=== PATIENT | male | born 1940 | race Caucasian/White ===

== ENCOUNTER → 2024-02-02 | Outpatient (CLI) | payer MEDICARE, SELFPAY | END | disposition home or self-care (01) | PROVIDERS: PCP Pathology Anatomic Pathology & Clinical Pathology; Visit Provider Podiatrist | DX: L97.522 Non-pressure chronic ulcer of other part of left foot with fat layer exposed (principal) | CPT/HCPCS: 87070; 87075; 87077; 87186; 87205 ==

== ENCOUNTER 2024-03-23 10:00 | Outpatient (RCR) | payer MEDICARE, SELFPAY ==
[2024-03-08 10:24] VITALS: BP 164/65; PULSE 81; RESP 18; TEMP 36.3; BMI 27.6
--- NOTE | 2024-03-08 11:03 | HP.PCM_ITS ---
History of Present Illness Date of Service: 03/08/24 Chief Complaint: Non-healing ulcerations b/l feet and legs History of Wound: Pt has an almost 12 month history of non-healing ulcerations b/l feet and legs, now with healed ulcers on the legs, ankles, and feet. He denies N/V/F/C/D/fatigue/malaise. There has been no drainage. Denies malodor or purulent drainage, or redness. He has a history of hairy cell leukemia that is in remission, has undergone chemotherapy in the past. Has a history of p soriasis. Denies N/V/F/C. He has no other known auto-immune disorders with the exception of psoriasis. [facility] Home Medications ?Medication ?Instructions ?Recorded ?Last Taken ?Type brimonidine 0.2 %-timolol 0.5 % 1 drp ophthalmic (eye) DAILY 04/03/15 Unknown History eye drops (Combigan) clopidogrel 75 mg tablet 75 mg PO DAILY 04/03/15 Unknown History furosemide 20 mg tablet 20 mg PO DAILY 04/03/15 Unknown History glyburide 2.5 mg tablet (Diabeta) 2.5 mg PO DAILY 04/03/15 Unknown History latanoprost 0.005 % eye drops 1 drp QHS 04/03/15 Unknown History magnesium oxide 400 mg (241.3 mg 400 mg PO TID 04/03/15 Unknown History magnesium) tablet metoprolol succinate 25 mg 25 mg PO DAILY 04/03/15 Unknown History tablet,extended release 24 hr oxycodone 5 mg tablet (Roxicodone) 5 mg PO Q8H PRN PRN Pain 04/03/15 Unknown History simvastatin 40 mg tablet 40 mg PO QHS 04/03/15 Unknown History sucralfate 1 gram tablet 1 g PO BID 04/03/15 Unknown History tamsulosin 0.4 mg capsule 0.4 mg PO BID 04/03/15 Unknown History gabapentin 100 mg capsule 300 mg PO TID 04/17/15 Unknown History lisinopril 20 mg tablet DAILY 05/08/15 Unknown History folic acid 1 mg tablet 1 mg PO DAILY@0800 07/10/15 Unknown History apremilast 30 mg tablet (Otezla) 30 mg PO DAILY 02/05/16 Unknown History ferrous sulfate 325 mg (65 mg 325 mg PO DAILY 03/08/24 Unknown History iron) tablet (FeroSul) glipizide 2.5 mg tablet, extended 2.5 mg PO BID 03/08/24 Unknown History release 24 hr sodium polystyrene sulfonate 15 ml PO 03/08/24 Unknown History gram-sorbitol 20 gram/60 mL oral susp (SPS (with sorbitol)) timolol maleate 0.5 % eye drops drp ophthalmic (eye) 03/08/24 Unknown History Allergy/AdvReac Type Severity Reaction Status Date / Time tramadol Allergy Mild Nausea Verified 03/08/24 10:35 latex Allergy Unknown Verified 03/08/24 10:35 penicillin Allergy Unknown Verified 03/08/24 10:35 Social History Smoking Status: Never smoker Vital Signs Vital Signs Vital Signs: 03/08/24 10:24 Temperature 97.3 F L Temperature Source Temporal Pulse Rate 81 Respiratory Rate 18 Blood Pressure 164/65 H Blood Pressure Mean 98 Blood Pressure Source Monitor Blood Pressure Position Semi-Fowlers Blood Pressure Location Left Arm Oxygen Delivery Method Room Air Weight Weight: 70.76 kg Body Mass Index (BMI) 27.6 Physical Exam Narrative Neurovascular status diminished bilateral lower extremity. Patient has reduced hammertoe left second digit full-thickness wound to dorsal left second digit down to second subcutaneous tissue. No acute signs of infection. Full-thickness wound right medial ankle. No deep probing acute signs of infection. Skin bilaterally is atrophic. Debridement Note Debridement Note Post-Debridement Measurements and Additional Note: Post-Debridement Measurements/Treatment - Nurse 1 - General Ulcer Assessment Start: 03/08/24 10:24 Freq: Status: Active Protocol: [email or web address].[email or web address] Activity Type Activity Date Activity User E-sign Co-sign Detail Recorded Client Recorded Date Recorded By Document 03/08/24 10:24 KW ; 03/08/24 10:33 KW 03/08/24 10:24 - Today's Visit Information Type of service Initial Visit Arrival Mode Ambulatory,Cane Accompanied by Patient Identification Verified (Name & Yes ) Finger Stick Blood Sugar(mg/dl) (if 195 indicated): Blood Sugar Stated by Patient Height and Weight Height 5 ft 3 in Weight 70.76 kg Weight in Pounds 156.0 lbs Body Mass Index (BMI) 27.6 BMI Classification Overweight BSA - Saran 1.74 Vital Signs Temperature (97.8 F-99.1 F) 97.3 F L Temperature Source Temporal Pulse Rate (60-100) 81 Pulse Location Monitor Respiratory Rate (12-18) 18 Respiratory rate source Observation Oxygen Delivery Method Room Air Blood Pressure (90/60-120/80) 164/65 H Blood Pressure Mean 98 Source Monitor Position Semi-Fowlers Blood Pressure Location Left Arm History Since Last Visit- (Skip if this is Patient's initial visit) Left Footwear Diabetic Shoe Right Footwear Diabetic Shoe Pain Scale: 0-10 Numeric Is Patient Pain Free? Yes WC - Nurse 1 - General Ulcer Measurement Start: 03/08/24 10:24 Freq: Status: Active Protocol: Activity Type Activity Date Activity User E-sign Co-sign Detail Recorded Client Recorded Date Recorded By Document 03/08/24 10:24 KW ; 03/08/24 10:33 KW 03/08/24 10:24 Wound Center Nurse 1 #9 RT MED ANKLE -Current Size (cm) - Length 0.6 -Current Size (cm) - Width 0.7 -Current Size (cm) - Depth 0.3 -Total Square Cm 0.42 -Date of Last Picture (Recall this 03/08/24 field) -Exudate Amt Small -Exudate Type Serosanguineous -Wound Margin Distinct, Outline Attached -Granulation Amt Small (1-33%) -Granulation Quality [place] -Necrosis Amt Large (67-100%) -Necrotic Tissue Type Adherent Slough -Texture (Jo-wound Skin Appearance) Assessed -Moisture (Jo-wound Skin Appearance) Assessed,Dry/ Scaly -Color (Jo-wound Skin Appearance) Assessed -Temperature (Jo-wound Skin No Abnormality Appearance) (Pt Warm) -Tenderness on Palpation (Jo-wound No Skin Appearance) -Ulcer Cleansing Rinsed/ Irrigated with Saline -Foul Odor after Cleansing No -Anesthetic Used 5% Lidocaine Gel #8 LT 2ND TOE -Current Size (cm) - Length 0.2 -Current Size (cm) - Width 0.8 -Current Size (cm) - Depth 0.2 -Total Square Cm 0.16 -Date of Last Picture (Recall this 03/08/24 field) -Exudate Amt Small -Exudate Type Serosanguineous -Wound Margin Distinct, Outline Attached -Granulation Amt Small (1-33%) -Granulation Quality [place] -Necrosis Amt Large (67-100%) -Necrotic Tissue Type Adherent Slough -Texture (Jo-wound Skin Appearance) Assessed -Moisture (Jo-wound Skin Appearance) Assessed,Dry/ Scaly -Color (Jo-wound Skin Appearance) Assessed -Temperature (Jo-wound Skin No Abnormality Appearance) (Pt Warm) -Tenderness on Palpation (Jo-wound No Skin Appearance) -Ulcer Cleansing Rinsed/ Irrigated with Saline -Anesthetic Used 5% Lidocaine Gel Right Calf (cm) 28.5 Right Ankle (cm) 20.5 Left Calf (cm) 28.8 Left Ankle (cm) 20.5 WC - Nurse 2 - General Ulcer CM Notes Start: 03/08/24 10:24 Freq: Status: Active Protocol: Activity Type Activity Date Activity User E-sign Co-sign Detail Recorded Client Recorded Date Recorded By Document 03/08/24 10:56 [facility] [email or web address] 03/08/24 11:01 [facility] 03/08/24 10:56 Wound Center Nurse 2 #9 RT MED ANKLE -Time 10:57 -Correct Patient Yes -Correct Side, Site, Position Yes -Correct Procedure Yes -Procedure Performed Yes -Type of Procedure Debridement -Clinical Debridement Subcutaneous -Tissue Removed Subcutaneous -Post Debridement (cm) - Length 0.5 -Post Debridement (cm) - Width 0.8 -Post Debridement (cm) - Depth 0.3 -Total Square (Post) (cm) 0.40 -Area of Debridement (cm) - Length 0.5 -Area of Debridement (cm) - Width 0.8 -Total Square (Area) (cm) 0.40 -Tunneling No -Undermining/Tunneling No -Circular Undermining No -Wound/Ulcer Outcome Not Healed -Ulcer Cleansing Rinsed/ Irrigated with Saline -Foul Odor after Cleansing No -Bioengineered Tissue No -Bleeding Controlled with Pressure -Treatment Response Procedure Tolerated Well -Debridement - Subq, 1st 20sq cm Yes #8 LT 2ND TOE -Time 10:58 -Correct Patient Yes -Correct Side, Site, Position Yes -Correct Procedure Yes -Procedure Performed Yes -Type of Procedure Debridement -Clinical Debridement Subcutaneous -Tissue Removed Subcutaneous -Post Debridement (cm) - Length 0.4 -Post Debridement (cm) - Width 1 -Post Debridement (cm) - Depth 0.3 -Total Square (Post) (cm) 0.4 -Area of Debridement (cm) - Length 0.4 -Area of Debridement (cm) - Width 1 -Total Square (Area) (cm) 0.4 -Tunneling No -Undermining/Tunneling No -Circular Undermining No -Wound/Ulcer Outcome Not Healed -Ulcer Cleansing Rinsed/ Irrigated with Saline -Foul Odor after Cleansing No -Bioengineered Tissue No -Bleeding Controlled with Pressure -Treatment Response Procedure Tolerated Well -Debridement - Subq, 1st 20sq cm No Pain Scale: 0-10 Numeric Is Patient Pain Free? Yes Assessment/Plan Assessment/Plan (1) Non-pressure chronic ulcer of other part of left foot with fat layer exposed: CODE(S): L97.522 - Non-pressure chronic ulcer of other part of left foot with fat layer exposed PLAN: Exam performed Patient had flexor tenotomy left second toe, digital deformities noted to be reduced. There is a wound that is healing well to the dorsal left second PIP J. No acute signs of infection. Patient has right medial ankle wound secondary to venous insufficiency. Bilateral wounds were excisionally debrided down to including level of subcutan eous tissue of all nonviable tissue using 3 mm dermal curette. Patient tolerated procedure well. Topical anesthesia used. Pre and postdebridement measurements documented nursing notes. Hemostasis obtained with light compression. Left second toe will be dressed with Betadine paint dry sterile dressing daily bilateral lower extremities to be dressed with Unna boot's and Adaptic to the right lower extremity wound. This will be dressed changed twice a week. Follow-up in 1 week (2) Non-pressure chronic ulcer of right ankle with fat layer exposed: CODE(S): L97.312 - Non-pressure chronic ulcer of right ankle with fat layer exposed (3) Other specified peripheral vascular diseases: CODE(S): I73.89 - Other specified peripheral vascular diseases
--- NOTE | 2024-03-09 09:18 | WC ---
PHOTO 03/08/24 LEFT 2ND TOE
--- NOTE | 2024-03-09 09:25 | WC ---
PHOTO 03/08/24 RT MEDIAL ANKLE
[2024-03-11 11:41] VITALS: BP 154/65; PULSE 82; RESP 18; TEMP 36.1; BMI 27.6
[2024-03-15 11:07] VITALS: BP 140/63; PULSE 74; RESP 18; TEMP 36.9; BMI 27.6
--- NOTE | 2024-03-15 11:37 | PCM.WC.PN ---
History of Present Illness Date of Service: 03/15/24 Chief Complaint: Non-healing ulcerations b/l feet and legs History of Wound: Pt has an almost 12 month history of non-healing ulcerations b/l feet and legs, now with healed ulcers on the legs, ankles, and feet. He denies N/V/F/C/D/fatigue/malaise. There has been no drainage. Denies malodor or purulent drainage, or redness. He has a history of hairy cell leukemia that is in remission, has undergone chemotherapy in the past. Has a history of psoriasis. Denies N/V/F/C. He has no other known auto-immune disorders with the exception of psoriasis. Objective Data Objective Data Vital Signs: Vital Signs Temp Pulse Resp BP O2 Del Method 98.4 F 74 18 140/63 H Room Air 03/15/24 11:07 03/15/24 11:07 03/15/24 11:07 03/15/24 11:07 03/08/24 10:24 Oxygen Delivery Method Room Air Weight: 70.76 kg Body Mass Index (BMI) 27.6 Physical Exam Narrative Neurovascular status diminished bilateral lower extremity. Patient has reduced hammertoe left second digit full-thickness wound to dorsal left second digit down to second subcutaneous tissue. No acute signs of infection. Full-thickness wound right medial ankle. No deep probing acute signs of infection. Skin bilaterally is atrophic. Debridement Note Debridement Note Post-Debridement Measurements and Additional Note: Post-Debridement Measurements/Treatment WC - Nurse 1 - General Ulcer Assessment Start: 03/08/24 10:24 Freq: Status: Active Protocol: PATY Activity Type Activity Date Activity User E-sign Co-sign Detail Recorded Client Recorded Date Recorded By Document 03/08/24 10:24 KW ; 03/08/24 10:33 KW Document 03/11/24 11:41 RB wound 03/11/24 11:44 RB Edit Result 03/11/24 11:41 RB (1) wound 03/11/24 11:45 RB Document 03/15/24 11:07 RB wound 03/15/24 11:24 RB (1) Blood Pressure (90/60-120/80) => 154/65 H Blood Pressure Mean (mm Hg) => 94 03/08/24 03/11/24 03/15/24 10:24 11:41 11:07 - Today's Visit Information Type of service Initial Visit Nurse-only Follow-up Visit 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 ) Arrival Mode Ambulatory,Cane Ambulatory Ambulatory,Cane Transfer Assistance None None Accompanied by Patient Identification Verified (Name & Yes Yes Yes ) Patient Requires Transmission-Based No No Precautions Finger Stick Blood Sugar(mg/dl) (if 195 indicated): Blood Sugar Stated by Patient Height and Weight Height 5 ft 3 in Weight 70.76 kg Weight in Pounds 156.0 lbs Body Mass Index (BMI) 27.6 27.6 27.6 BMI Classification Overweight Overweight Overweight BSA - Saran 1.74 Vital Signs Temperature (97.8 F-99.1 F) 97.3 F L 97 F L 98.4 F Temperature Source Temporal Temporal Temporal Pulse Rate (60-100) 81 82 74 Pulse Location Monitor Monitor Monitor Respiratory Rate (12-18) 18 18 18 Respiratory rate source Observation Observation Observation Oxygen Delivery Method Room Air Blood Pressure (90/60-120/80) 164/65 H 154/65 H 140/63 H Blood Pressure Mean (mm Hg) 98 94 88 Source Monitor Monitor Monitor Position Semi-Fowlers Semi-Fowlers Semi-Fowlers Blood Pressure Location Left Arm Left Arm Left Arm History Since Last Visit- (Skip if this is Patient's initial visit) Have you changed medications since your No last visit? Any new allergies or adverse reactions No Had a fall/change in ADL's that may No increase risk of falls Signs or symptoms of abuse and/or No neglect since last visit Have you been in the hospital since your No last visit? Has dressing in place as prescribed Yes Has compression in place as prescribed Yes Has offloadiing in place as prescribed No Experienced any changes in pain level or No management Left Footwear Diabetic Shoe Right Footwear Diabetic Shoe Pain Scale: 0-10 Numeric Is Patient Pain Free? Yes Yes Yes - Nurse 1 - General Ulcer Measurement Start: 03/08/24 10:24 Freq: Status: Active Protocol: Activity Type Activity Date Activity User E-sign Co-sign Detail Recorded Client Recorded Date Recorded By Document 03/08/24 10:24 KW ; 03/08/24 10:33 KW Document 03/11/24 11:41 RB wound 03/11/24 11:44 RB Document 03/15/24 11:07 RB wound 03/15/24 11:24 RB 03/08/24 03/11/24 03/15/24 10:24 11:41 11:07 Wound Center Nurse 1 #9 RT MED ANKLE -Combined with other wound No -Current Size (cm) - Length 0.6 0.4 -Current Size (cm) - Width 0.7 0.6 -Current Size (cm) - Depth 0.3 0.2 -Total Square Cm 0.42 0.24 -Date of Last Picture (Recall this 03/08/24 field) -Tunneling No -Undermining/Tunneling No -Circular Undermining No -Exudate Amt Small Medium -Exudate Type Serosanguineous Serosanguineous -Wound Margin Distinct, Thickened & Outline Rolled Under Attached -Granulation Amt Small (1-33%) Medium (34-66%) -Granulation Quality [place] -Slough/Fibrin Yes -Necrosis Amt Large (67-100%) Large (67-100%) -Necrotic Tissue Type Adherent Slough Adherent Slough -Structure Exposed N/A -Texture (Jo-wound Skin Appearance) Assessed Assessed -Moisture (Jo-wound Skin Appearance) Assessed,Dry/ Dry/Scaly Scaly -Color (Jo-wound Skin Appearance) Assessed Assessed -Temperature (Jo-wound Skin No Abnormality No Abnormality Appearance) (Pt Warm) (Pt Warm) -Tenderness on Palpation (Jo-wound No No Skin Appearance) -Ulcer Cleansing Rinsed/ Wound Cleanser Wound Cleanser Irrigated with Saline -Foul Odor after Cleansing No No -Anesthetic Used 5% Lidocaine 5% Lidocaine Gel Gel #8 LT 2ND TOE -Combined with other wound No -Current Size (cm) - Length 0.2 0.3 -Current Size (cm) - Width 0.8 0.5 -Current Size (cm) - Depth 0.2 0.1 -Total Square Cm 0.16 0.15 -Date of Last Picture (Recall this 03/08/24 field) -Photo Taken Yes -Tunneling No -Undermining/Tunneling No -Circular Undermining No -Exudate Amt Small Medium -Exudate Type Serosanguineous Serosanguineous -Wound Margin Distinct, Distinct, Outline Outline Attached Attached -Granulation Amt Small (1-33%) Small (1-33%) -Granulation Quality [place] -Slough/Fibrin Yes -Necrosis Amt Large (67-100%) Large (67-100%) -Necrotic Tissue Type Adherent Slough Adherent Slough -Structure Exposed N/A -Texture (Jo-wound Skin Appearance) Assessed Assessed -Moisture (Jo-wound Skin Appearance) Assessed,Dry/ Dry/Scaly Scaly -Color (Jo-wound Skin Appearance) Assessed Assessed -Temperature (Jo-wound Skin No Abnormality No Abnormality Appearance) (Pt Warm) (Pt Warm) -Tenderness on Palpation (Jo-wound No No Skin Appearance) -Ulcer Cleansing Rinsed/ Wound Cleanser Irrigated with Saline -Foul Odor after Cleansing No -Anesthetic Used 5% Lidocaine 5% Lidocaine Gel Gel Lower Limb Edema Present Yes Yes Right Calf (cm) 28.5 28.2 28.5 Right Ankle (cm) 20.5 20.5 20 Left Calf (cm) 28.8 28.2 27.2 Left Ankle (cm) 20.5 20.9 19.6 WC - Nurse 2 - General Ulcer CM Notes Start: 03/08/24 10:24 Freq: Status: Active Protocol: Activity Type Activity Date Activity User E-sign Co-sign Detail Recorded Client Recorded Date Recorded By Document 03/08/24 10:56 [facility] [id number] 03/08/24 11:01 [facility] 03/08/24 10:56 Wound Center Nurse 2 #9 RT MED ANKLE -Time 10:57 -Correct Patient Yes -Correct Side, Site, Position Yes -Correct Procedure Yes -Procedure Performed Yes -Type of Procedure Debridement -Clinical Debridement Subcutaneous -Tissue Removed Subcutaneous -Post Debridement (cm) - Length 0.5 -Post Debridement (cm) - Width 0.8 -Post Debridement (cm) - Depth 0.3 -Total Square (Post) (cm) 0.40 -Area of Debridement (cm) - Length 0.5 -Area of Debridement (cm) - Width 0.8 -Total Square (Area) (cm) 0.40 -Tunneling No -Undermining/Tunneling No -Circular Undermining No -Wound/Ulcer Outcome Not Healed -Ulcer Cleansing Rinsed/ Irrigated with Saline -Foul Odor after Cleansing No -Bioengineered Tissue No -Bleeding Controlled with Pressure -Treatment Response Procedure Tolerated Well -Debridement - Subq, 1st 20sq cm Yes #8 LT 2ND TOE -Time 10:58 -Correct Patient Yes -Correct Side, Site, Position Yes -Correct Procedure Yes -Procedure Performed Yes -Type of Procedure Debridement -Clinical Debridement Subcutaneous -Tissue Removed Subcutaneous -Post Debridement (cm) - Length 0.4 -Post Debridement (cm) - Width 1 -Post Debridement (cm) - Depth 0.3 -Total Square (Post) (cm) 0.4 -Area of Debridement (cm) - Length 0.4 -Area of Debridement (cm) - Width 1 -Total Square (Area) (cm) 0.4 -Tunneling No -Undermining/Tunneling No -Circular Undermining No -Wound/Ulcer Outcome Not Healed -Ulcer Cleansing Rinsed/ Irrigated with Saline -Foul Odor after Cleansing No -Bioengineered Tissue No -Bleeding Controlled with Pressure -Treatment Response Procedure Tolerated Well -Debridement - Subq, 1st 20sq cm No Pain Scale: 0-10 Numeric Is Patient Pain Free? Yes WC - Nurse 3 - General Ulcer D/C NN Start: 03/08/24 10:24 Freq: Status: Active Protocol: Activity Type Activity Date Activity User E-sign Co-sign Detail Recorded Client Recorded Date Recorded By Document 03/08/24 11:07 DL [email or web address] 03/08/24 11:09 DL Document 03/11/24 11:41 RB wound 03/11/24 11:44 RB Edit Result 03/11/24 11:41 RB (1) wound 03/11/24 11:45 RB (1) Blood Pressure (90/60-120/80) => 154/65 H Blood Pressure Mean (mm Hg) => 94 03/08/24 03/11/24 11:07 11:41 Wound Care Center Nurse 3 #9 RT MED ANKLE -Ulcer Cleansing Rinsed/ Irrigated with Saline -Foul Odor after Cleansing No -Primary Dressing Applied NonAdherent NonAdherent Contact Layer Contact Layer #8 LT 2ND TOE -Ulcer Cleansing Rinsed/ betadine Irrigated with Saline -Other Dressing betadine -Primary Dressing Covered/Secured with Dry Gauze, Secured with Tape -Wound Comment(s) dressing applied per R Kristopher das osmany -Multi-Layered Wrap Application Unna Boot - Unna Boot - Bilateral ($) Bilateral ($) Treatment Response Procedure Procedure Tolerated Well Tolerated Well Vital Signs Temperature (97.8 F-99.1 F) 97 F L Temperature Source Temporal Pulse Rate (60-100) 82 Pulse Location Monitor Respiratory Rate (12-18) 18 Respiratory rate source Observation Blood Pressure (90/60-120/80) 154/65 H Blood Pressure Mean (mm Hg) 94 Source Monitor Position Semi-Fowlers Blood Pressure Location Left Arm Pain Scale: 0-10 Numeric Is Patient Pain Free? Yes Yes WC - Visit Discharge Discharge Condition Stable Stable Ambulatory Status Cane Ambulatory,Cane Transportation Private Auto Private Auto Medication Reconcilliation completed & No provided to patient/care provider Clinical Summary of Care Provided Yes Assessment/Plan Assessment/Plan (1) Non-pressure chronic ulcer of other part of left foot with fat layer exposed: CODE(S): L97.522 - Non-pressure chronic ulcer of other part of left foot with fat layer exposed PLAN: Exam performed Patient had flexor tenotomy left second toe, digital deformities noted to be reduced. There is a wound that is healing well to the dorsal left second PIPJ. No acute signs of infection. Patient has right medial ankle wound secondary to venous insufficiency. Bilateral wounds were excisionally debrided down to including level of subcutaneous tissue of all nonviable tissue using 3 mm dermal curette. Patient tolerated procedure well. Topical anesthesia used. Pre and postdebridement measurements documented nursing notes. Hemostasis obtained with light compression. Left second toe will be dressed with Betadine paint dry sterile dressing daily bilateral lower extremities to be dressed with Unna boot's and Adaptic to the right lower extremity wound. This will be dressed changed twice a week. Follow-up in 1 week (2) Non-pressure chronic ulcer of right ankle with fat layer exposed: CODE(S): L97.312 - Non-pressure chronic ulcer of right ankle with fat layer exposed (3) Other specified peripheral vascular diseases: CODE(S): I73.89 - Other specified peripheral vascular diseases
[2024-03-18 13:38] VITALS: BP 138/45; PULSE 71; RESP 16; TEMP 36.2; BMI 27.6
[2024-03-22 10:29] VITALS: BP 160/63; PULSE 69; RESP 18; TEMP 35.7; BMI 27.6
--- NOTE | 2024-03-22 11:06 | PCM.WC.PN ---
History of Present Illness Date of Service: 03/22/24 Chief Complaint: Non-healing ulcerations b/l feet and legs History of Wound: Pt has an almost 12 month history of non-healing ulcerations b/l feet and legs, now with healed ulcers on the legs, ankles, and feet. He denies N/V/F/C/D/fatigue/malaise. There has been no drainage. Denies malodor or purulent drainage, or redness. He has a history of hairy cell leukemia that is in remission, has undergone chemotherapy in the past. Has a history of psoriasis. Denies N/V/F/C. He has no other known auto-immune disorders with the exception of psoriasis. Objective Data Objective Data Vital Signs: Vital Signs Temp Pulse Resp BP O2 Del Method 96.3 F L 69 18 160/63 H Room Air 03/22/24 10:29 03/22/24 10:29 03/22/24 10:29 03/22/24 10:29 03/18/24 13:38 Oxygen Delivery Method Room Air Weight: 70.76 kg Body Mass Index (BMI) 27.6 Physical Exam Narrative Neurovascular status diminished bilateral lower extremity. Patient has reduced hammertoe left second digit full-thickness wound to dorsal left second digit down to second subcutaneous tissue. No acute signs of infection. Full-thickness wound right medial ankle. No deep probing acute signs of infection. Skin bilaterally is atrophic. Debridement Note Debridement Note Post-Debridement Measurements and Additional Note: Post-Debridement Measurements/Treatment WC - Nurse 1 - General Ulcer Assessment Start: 03/08/24 10:24 Freq: Status: Active Protocol: PATY Activity Type Activity Date Activity User E-sign Co-sign Detail Recorded Client Recorded Date Recorded By Document 03/08/24 10:24 KW ; 03/08/24 10:33 KW Document 03/11/24 11:41 RB wound 03/11/24 11:44 RB Edit Result 03/11/24 11:41 RB (1) wound 03/11/24 11:45 RB Document 03/15/24 11:07 RB wound 03/15/24 11:24 RB Document 03/18/24 13:38 BMF [id number] 03/18/24 13:42 BMF Document 03/22/24 10:29 RB wound 03/22/24 10:52 RB (1) Blood Pressure (90/60-120/80) => 154/65 H Blood Pressure Mean (mm Hg) => 94 03/08/24 03/11/24 03/15/24 10:24 11:41 11:07 WC - Today's Visit Information Type of service Initial Visit Nurse-only Follow-up Visit Visit (Physician/BARREL LAPPER ) Arrival Mode Ambulatory,Cane Ambulatory Ambulatory,Cane Transfer Assistance None None Accompanied by Patient Identification Verified (Name & Yes Yes Yes ) Patient Requires Transmission-Based No No Precautions Finger Stick Blood Sugar(mg/dl) (if 195 indicated): Blood Sugar Stated by Patient Height and Weight Height 5 ft 3 in Weight 70.76 kg Weight in Pounds 156.0 lbs Body Mass Index (BMI) 27.6 27.6 27.6 BMI Classification Overweight Overweight Overweight BSA - [place] 1.74 Vital Signs Temperature (97.8 F-99.1 F) 97.3 F L 97 F L 98.4 F Temperature Source Temporal Temporal Temporal Pulse Rate (60-100) 81 82 74 Pulse Location Monitor Monitor Monitor Respiratory Rate (12-18) 18 18 18 Respiratory rate source Observation Observation Observation Oxygen Delivery Method Room Air Blood Pressure (90/60-120/80) 164/65 H 154/65 H 140/63 H Blood Pressure Mean (mm Hg) 98 94 88 Source Monitor Monitor Monitor Position Semi-Fowlers Semi-Fowlers Semi-Fowlers Blood Pressure Location Left Arm Left Arm Left Arm History Since Last Visit- (Skip if this is Patient's initial visit) Have you changed medications since your No last visit? Any new allergies or adverse reactions No Had a fall/change in ADL's that may No increase risk of falls Signs or symptoms of abuse and/or No neglect since last visit Have you been in the hospital since your No last visit? Has dressing in place as prescribed Yes Has compression in place as prescribed Yes Has offloadiing in place as prescribed No Experienced any changes in pain level or No management Left Footwear Diabetic Shoe Right Footwear Diabetic Shoe Pain Scale: 0-10 Numeric Is Patient Pain Free? Yes Yes Yes [email or web address] TAFOYA -Description -Intensity -Duration (hours) -Pain Behavior -Pain Aggravating Factors -Alleviating Factors/Interventions -Effectiveness of Alleviating Factor/ Intervention 03/18/24 03/22/24 13:38 10:29 WC - Today's Visit Information Type of service Nurse-only Follow-up Visit Visit (Physician/BARREL LAPPER ) Arrival Mode Ambulatory, Ambulatory, Walker Walker Transfer Assistance None Accompanied by Patient Identification Verified (Name & Yes Yes ) Patient Requires Transmission-Based No No Precautions Finger Stick Blood Sugar(mg/dl) (if indicated): Blood Sugar Height and Weight Height Weight Weight in Pounds Body Mass Index (BMI) 27.6 27.6 BMI Classification Overweight Overweight [facility] - [place] Vital Signs Temperature (97.8 F-99.1 F) 97.1 F L 96.3 F L Temperature Source Temporal Temporal Pulse Rate (60-100) 71 69 Pulse Location Monitor Monitor Respiratory Rate (12-18) 16 18 Respiratory rate source Observation Ausculation Oxygen Delivery Method Room Air Blood Pressure (90/60-120/80) 138/45 H 160/63 H Blood Pressure Mean (mm Hg) 76 95 Source Monitor Monitor Position Sitting Semi-Fowlers Blood Pressure Location Left Arm Left Arm History Since Last Visit- (Skip if this is Patient's initial visit) Have you changed medications since your No last visit? Any new allergies or adverse reactions No Had a fall/change in ADL's that may No increase risk of falls Signs or symptoms of abuse and/or No neglect since last visit Have you been in the hospital since your No last visit? Has dressing in place as prescribed Yes Has compression in place as prescribed Yes Has offloadiing in place as prescribed No Experienced any changes in pain level or No management Left Footwear Diabetic Shoe Right Footwear Diabetic Shoe Pain Scale: 0-10 Numeric Is Patient Pain Free? Yes No bilat LE -Description Aching -Intensity 4 -Duration (hours) Acute -Pain Behavior Withdrawal from Touch -Pain Aggravating Factors Exercise/ Activity, Debridement -Alleviating Factors/Interventions Medication -Effectiveness of Alleviating Factor/ Moderately Intervention effective WC - Nurse 1 - General Ulcer Measurement Start: 03/08/24 10:24 Freq: Status: Active Protocol: Activity Type Activity Date Activity User E-sign Co-sign Detail Recorded Client Recorded Date Recorded By Document 03/08/24 10:24 KW ; 03/08/24 10:33 KW Document 03/11/24 11:41 RB wound 03/11/24 11:44 RB Document 03/15/24 11:07 RB wound 03/15/24 11:24 RB Document 03/22/24 10:29 RB wound 03/22/24 10:52 RB 03/08/24 03/11/24 03/15/24 10:24 11:41 11:07 Wound Center Nurse 1 #9 RT MED ANKLE -Combined with other wound No -Current Size (cm) - Length 0.6 0.4 -Current Size (cm) - Width 0.7 0.6 -Current Size (cm) - Depth 0.3 0.2 -Total Square Cm 0.42 0.24 -Date of Last Picture (Recall this 03/08/24 field) -Photo Taken -Tunneling No -Undermining/Tunneling No -Circular Undermining No -Exudate Amt Small Medium -Exudate Type Serosanguineous Serosanguineous -Wound Margin Distinct, Thickened & Outline Rolled Under Attached -Granulation Amt Small (1-33%) Medium (34-66%) -Granulation Quality Sargeant Sargeant -Slough/Fibrin Yes -Necrosis Amt Large (67-100%) Large (67-100%) -Necrotic Tissue Type Adherent Slough Adherent Slough -Structure Exposed N/A -Texture (Jo-wound Skin Appearance) Assessed Assessed -Moisture (Jo-wound Skin Appearance) Assessed,Dry/ Dry/Scaly Scaly -Color (Jo-wound Skin Appearance) Assessed Assessed -Temperature (Jo-wound Skin No Abnormality No Abnormality Appearance) (Pt Warm) (Pt Warm) -Tenderness on Palpation (Jo-wound No No Skin Appearance) -Ulcer Cleansing Rinsed/ Wound Cleanser Wound Cleanser Irrigated with Saline -Foul Odor after Cleansing No No -Anesthetic Used 5% Lidocaine 5% Lidocaine Gel Gel #8 LT 2ND TOE -Combined with other wound No -Current Size (cm) - Length 0.2 0.3 -Current Size (cm) - Width 0.8 0.5 -Current Size (cm) - Depth 0.2 0.1 -Total Square Cm 0.16 0.15 -Date of Last Picture (Recall this 03/08/24 field) -Photo Taken Yes -Tunneling No -Undermining/Tunneling No -Circular Undermining No -Exudate Amt Small Medium -Exudate Type Serosanguineous Serosanguineous -Wound Margin Distinct, Distinct, Outline Outline Attached Attached -Granulation Amt Small (1-33%) Small (1-33%) -Granulation Quality Sargeant Sargeant -Slough/Fibrin Yes -Necrosis Amt Large (67-100%) Large (67-100%) -Necrotic Tissue Type Adherent Slough Adherent Slough -Structure Exposed N/A -Texture (Jo-wound Skin Appearance) Assessed Assessed -Moisture (Jo-wound Skin Appearance) Assessed,Dry/ Dry/Scaly Scaly -Color (Jo-wound Skin Appearance) Assessed Assessed -Temperature (Jo-wound Skin No Abnormality No Abnormality Appearance) (Pt Warm) (Pt Warm) -Tenderness on Palpation (Jo-wound No No Skin Appearance) -Ulcer Cleansing Rinsed/ Wound Cleanser Irrigated with Saline -Foul Odor after Cleansing No -Anesthetic Used 5% Lidocaine 5% Lidocaine Gel Gel Lower Limb Edema Present Yes Yes Right Calf (cm) 28.5 28.2 28.5 Right Ankle (cm) 20.5 20.5 20 Left Calf (cm) 28.8 28.2 27.2 Left Ankle (cm) 20.5 20.9 19.6 03/22/24 10:29 Wound Center Nurse 1 #9 RT MED ANKLE -Combined with other wound No -Current Size (cm) - Length 0.5 -Current Size (cm) - Width 0.7 -Current Size (cm) - Depth 0.2 -Total Square Cm 0.35 -Date of Last Picture (Recall this field) -Photo Taken Yes -Tunneling No -Undermining/Tunneling No -Circular Undermining No -Exudate Amt Medium -Exudate Type Serosanguineous -Wound Margin Thickened & Rolled Under -Granulation Amt Medium (34-66%) -Granulation Quality Sargeant -Slough/Fibrin Yes -Necrosis Amt Medium (34-66%) -Necrotic Tissue Type Adherent Slough -Structure Exposed N/A -Texture (Jo-wound Skin Appearance) Assessed -Moisture (Jo-wound Skin Appearance) Assessed -Color (Jo-wound Skin Appearance) Assessed -Temperature (Jo-wound Skin No Abnormality Appearance) (Pt Warm) -Tenderness on Palpation (Jo-wound No Skin Appearance) -Ulcer Cleansing Wound Cleanser -Foul Odor after Cleansing No -Anesthetic Used 5% Lidocaine Gel #8 LT 2ND TOE -Combined with other wound -Current Size (cm) - Length 0.3 -Current Size (cm) - Width 0.5 -Current Size (cm) - Depth 0.1 -Total Square Cm 0.15 -Date of Last Picture (Recall this field) -Photo Taken Yes -Tunneling No -Undermining/Tunneling No -Circular Undermining No -Exudate Amt Medium -Exudate Type Serosanguineous -Wound Margin Thickened & Rolled Under -Granulation Amt Medium (34-66%) -Granulation Quality Sargeant -Slough/Fibrin Yes -Necrosis Amt Medium (34-66%) -Necrotic Tissue Type Adherent Slough -Structure Exposed N/A -Texture (Jo-wound Skin Appearance) Assessed -Moisture (Jo-wound Skin Appearance) Assessed -Color (Jo-wound Skin Appearance) Assessed -Temperature (Jo-wound Skin No Abnormality Appearance) (Pt Warm) -Tenderness on Palpation (Jo-wound No Skin Appearance) -Ulcer Cleansing Wound Cleanser -Foul Odor after Cleansing No -Anesthetic Used 5% Lidocaine Gel Lower Limb Edema Present Yes Right Calf (cm) 28.5 Right Ankle (cm) 20 Left Calf (cm) 27.5 Left Ankle (cm) 20.5 WC - Nurse 2 - General Ulcer CM Notes Start: 03/08/24 10:24 Freq: Status: Active Protocol: Activity Type Activity Date Activity User E-sign Co-sign Detail Recorded Client Recorded Date Recorded By Document 03/08/24 10:56 [facility] [id number] 03/08/24 11:01 [facility] Document 03/15/24 11:34 0000 03/15/24 11:40 Document 03/22/24 10:58 0000 03/22/24 10:59 03/08/24 03/15/24 03/22/24 10:56 11:34 10:58 Wound Center Nurse 2 #9 RT MED ANKLE -Time 10:57 11:34 10:58 -Correct Patient Yes Yes Yes -Correct Side, Site, Position Yes Yes Yes -Correct Procedure Yes Yes Yes -Procedure Performed Yes Yes Yes -Type of Procedure Debridement Debridement Debridement -Clinical Debridement Subcutaneous Subcutaneous Subcutaneous -Tissue Removed Subcutaneous Subcutaneous Subcutaneous -Post Debridement (cm) - Length 0.5 0.6 0.5 -Post Debridement (cm) - Width 0.8 1.0 0.9 -Post Debridement (cm) - Depth 0.3 0.2 0.2 -Total Square (Post) (cm) 0.40 0.60 0.45 -Area of Debridement (cm) - Length 0.5 0.6 0.5 -Area of Debridement (cm) - Width 0.8 1.0 0.9 -Total Square (Area) (cm) 0.40 0.60 0.45 -Tunneling No No No -Undermining/Tunneling No No -Circular Undermining No No No -Wound/Ulcer Outcome Not Healed Not Healed Not Healed -Ulcer Cleansing Rinsed/ Rinsed/ Rinsed/ Irrigated with Irrigated with Irrigated with Saline Saline Saline -Foul Odor after Cleansing No No No -Bioengineered Tissue No No No -Bleeding Controlled with Pressure Pressure Pressure -Treatment Response Procedure Procedure Procedure Tolerated Well Tolerated Well Tolerated Well -Offloading No No -Debridement - Subq, 1st 20sq cm Yes No No #8 LT 2ND TOE -Time 10:58 11:34 10:59 -Correct Patient Yes Yes Yes -Correct Side, Site, Position Yes Yes Yes -Correct Procedure Yes Yes Yes -Procedure Performed Yes Yes Yes -Type of Procedure Debridement Debridement Debridement -Clinical Debridement Subcutaneous Subcutaneous Subcutaneous -Tissue Removed Subcutaneous Subcutaneous Subcutaneous -Post Debridement (cm) - Length 0.4 0.3 0.3 -Post Debridement (cm) - Width 1 1.0 0.8 -Post Debridement (cm) - Depth 0.3 0.2 0.1 -Total Square (Post) (cm) 0.4 0.30 0.24 -Area of Debridement (cm) - Length 0.4 0.3 0.3 -Area of Debridement (cm) - Width 1 1.0 0.8 -Total Square (Area) (cm) 0.4 0.30 0.24 -Tunneling No No No -Undermining/Tunneling No No No -Circular Undermining No No No -Wound/Ulcer Outcome Not Healed Not Healed Not Healed -Ulcer Cleansing Rinsed/ Rinsed/ Rinsed/ Irrigated with Irrigated with Irrigated with Saline Saline Saline -Foul Odor after Cleansing No No No -Bioengineered Tissue No No No -Bleeding Controlled with Pressure Pressure Pressure -Treatment Response Procedure Procedure Procedure Tolerated Well Tolerated Well Tolerated Well -Offloading No No -Debridement - Subq, 1st 20sq cm No Yes Yes Pain Scale: 0-10 Numeric Is Patient Pain Free? Yes Yes Yes - Nurse 3 - General Ulcer D/C NN Start: 03/08/24 10:24 Freq: Status: Active Protocol: Activity Type Activity Date Activity User E-sign Co-sign Detail Recorded Client Recorded Date Recorded By Document 03/08/24 11:07 DL .10.25.7 03/08/24 11:09 DL Document 03/11/24 11:41 RB wound 03/11/24 11:44 RB Edit Result 03/11/24 11:41 RB (1) wound 03/11/24 11:45 RB Document 03/15/24 12:07 DS 1 03/15/24 12:08 DS Document 03/18/24 13:38 BMF .10.25.7 03/18/24 13:42 BMF (1) Blood Pressure (90/60-120/80) => 154/65 H Blood Pressure Mean (mm Hg) => 94 03/08/24 03/11/24 03/15/24 11:07 11:41 12:07 Wound Care Center Nurse 3 #9 RT MED ANKLE -Ulcer Cleansing Rinsed/ Rinsed/ Irrigated with Irrigated with Saline Saline -Foul Odor after Cleansing No -Primary Dressing Applied NonAdherent NonAdherent Contact Layer Contact Layer -Other Dressing betadine, adaptic #8 LT 2ND TOE -Ulcer Cleansing Rinsed/ betadine Rinsed/ Irrigated with Irrigated with Saline Saline -Foul Odor after Cleansing -Other Dressing betadine betadine, adatic -Primary Dressing Covered/Secured with Dry Gauze, Secured with Tape -Wound Comment(s) dressing applied per R Kristopher das osmany -Multi-Layered Wrap Application Unna Boot - Unna Boot - Unna Boot - Bilateral ($) Bilateral ($) Bilateral ($) Treatment Response Procedure Procedure Tolerated Well Tolerated Well Vital Signs Temperature (97.8 F-99.1 F) 97 F L Temperature Source Temporal Pulse Rate (60-100) 82 Pulse Location Monitor Respiratory Rate (12-18) 18 Respiratory rate source Observation Oxygen Delivery Method Blood Pressure (90/60-120/80) 154/65 H Blood Pressure Mean (mm Hg) 94 Source Monitor Position Semi-Fowlers Blood Pressure Location Left Arm Pain Scale: 0-10 Numeric Is Patient Pain Free? Yes Yes Yes WC - Visit Discharge Discharge Condition Stable Stable Stable Ambulatory Status Cane Ambulatory,Cane Ambulatory, Walker Transportation Private Auto Private Auto Private Auto Accompanied by Medication Reconcilliation completed & No Yes provided to patient/care provider Clinical Summary of Care Provided Yes Yes 03/18/24 13:38 Wound Care Center Nurse 3 #9 RT MED ANKLE -Ulcer Cleansing Soap and Water -Foul Odor after Cleansing No -Primary Dressing Applied NonAdherent Contact Layer -Other Dressing UNNA BOOT #8 LT 2ND TOE -Ulcer Cleansing Soap and Water -Foul Odor after Cleansing No -Other Dressing BETADINE -Primary Dressing Covered/Secured with Dry Gauze, Secured with Tape -Wound Comment(s) osmany -Multi-Layered Wrap Application Unna Boot - Bilateral ($) Treatment Response Procedure Tolerated Well Vital Signs Temperature (97.8 F-99.1 F) 97.1 F L Temperature Source Temporal Pulse Rate (60-100) 71 Pulse Location Monitor Respiratory Rate (12-18) 16 Respiratory rate source Observation Oxygen Delivery Method Room Air Blood Pressure (90/60-120/80) 138/45 H Blood Pressure Mean (mm Hg) 76 Source Monitor Position Sitting Blood Pressure Location Left Arm Pain Scale: 0-10 Numeric Is Patient Pain Free? Yes WC - Visit Discharge Discharge Condition Stable Ambulatory Status Ambulatory, Walker Transportation Private Auto Accompanied by Medication Reconcilliation completed & provided to patient/care provider Clinical Summary of Care Provided Assessment/Plan Assessment/Plan (1) Non-pressure chronic ulcer of other part of left foot with fat layer exposed: CODE(S): L97.522 - Non-pressure chronic ulcer of other part of left foot with fat layer exposed PLAN: Exam performed Patient had flexor tenotomy left second toe, digital deformities noted to be reduced. There is a wound that is healing well to the dorsal left second PIPJ. No acute signs of infection. Patient has right medial ankle wound secondary to venous insufficiency. Bilateral wounds were excisionally debrided down to including level of subcutaneous tissue of all nonviable tissue using 3 mm dermal curette. Patient tolerated procedure well. Topical anesthesia used. Pre and postdebridement measurements documented nursing notes. Hemostasis obtained with light compression. Left second toe will be dressed with Betadine paint dry sterile dressing daily bilateral lower extremities to be dressed with Unna boot's and Adaptic to the right lower extremity wound. This will be dressed changed twice a week. Follow-up in 1 week (2) Non-pressure chronic ulcer of right ankle with fat layer exposed: CODE(S): L97.312 - Non-pressure chronic ulcer of right ankle with fat layer exposed (3) Other specified peripheral vascular diseases: CODE(S): I73.89 - Other specified peripheral vascular diseases
--- NOTE | 2024-03-23 10:17 | VDLE_ITS ---
Reason For Study: Foot ulcer RIGHT LEFT CFV is compressible, spontaneous, phasic, CFV is compressible, spontaneous, phasic, competent and demonstrates normal competent, and demonstrates normal augmentation. augmentation. FV is compressible, spontaneous, phasic, FV is compressible, phasic, and INCOMPETENT competent and demonstrates normal for greater than 1.0 second. augmentation. POP V is compressible, spontaneous, phasic, POP V is compressible, spontaneous, phasic, competent and demonstrates normal competent and demonstrates normal augmentation. augmentation. T/P Trunk is compressible. T/P Trunk is compressible. PTV is compressible. PTV is compressible. LT PerV is compressible. RT PerV is compressible. SFJ is competent and measures 0.54 cm. SFJ is competent and measures 0.54 cm. GSV proximal thigh measures 0.38 x 0.40 cm. GSV proximal thigh measures 0.28 x 0.28 cm. GSV at knee measures 0.49 x 0.51 cm. GSV at knee measures 0.16 x 0.17 cm. GSV is competent throughout. GSV is competent throughout. ASV proximal calf is INCOMPETENT for greater SSV proximal calf is competent and measures than 0.5 seconds and measures 0.24 x 0.35 cm. 0.30 x 0.31 cm. SSV proximal calf is competent and measures Procedure 0.14 x 0.17 cm. This is a venous duplex using B-mode, color flow and spectral Doppler. Exam performed in department. Patient was scanned in reverse Trendelenburg position during reflux assessment. A preliminary report was called and/or faxed to [facility]. VL/Venous Duplex US - John Extrem Interpretation Summary Deep veins of the lower extremities are bilaterally patent and compressible seg mentally. There is no evidence of deep vein thrombosis on either side. Valvular competence appears in tact within the deep venous system on the right . On the left, the femoral vein is incompetent. The great saphenous veins appear bilaterally patent and compressible segmentally. Sapheno-femoral junctio ns are bilaterally competent . Valvular competence appears to be intact segmentally within the gre at saphenous veins bilaterally. Small saphenous veins are patent and competent bilaterally. The ac cessory saphenous vein in the left proximal calf is incompetent. Ordering Physician: Sean Christopher Referring Physician: Wale Vasquez Performed By: Reanna Howell RVT
--- NOTE | 2024-03-23 10:17 | ART_ITS ---
Reason For Study: Foot wound Procedure A bilateral lower extremity continuous wave Doppler with analog waveform analysis,segmental pressures,and ankle brachial indexes without exercise. Left Segmental Pressures Left brachial= 158mmHg. Left thigh = 208mmHg. Left calf = 99mmHg. Left dorsalis pedis artery = 90mmHg. Left digit = 42 mmHg. The left dorsalis pedis waveforms are monophasic. The left posterior tibial artery waveforms are absent. Right Segmental Pressures Right brachial= 159mmHg. Right thigh = 148mmHg. Right calf = 95mmHg. Right posterior tibial artery = 88mmHg. Right dorsalis pedis artery = 90mmHg. Right digit = 46 mmHg. The right dorsalis pedis waveforms are monophasic. The right posterior tibial artery waveforms are monophasic. Indices The right ankle brachial index by the dorsalis pedis is 0.57. The right ankle brachial index by the posterior tibial artery is 0.55. The right digital-brachial index is 0.29. The left ankle brachial index by the dorsalis pedis is 0.57. The left digital-brachial index is 0.26. VL/Lower Ext Art Exam w/o Exercis Interpretation Summary Monophasic Doppler waveforms are noted at ankle level bilaterally. Pulse-volume recordings appear diminished at calf, ankle, and digital levels bilaterally. Resting ankle-brachi al indices are moderately diminished bilaterally. Digital-brachial indices are moderately to s everely diminished bilaterally. 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 There is evidence of [id number] arterial occlusive disease at digital level bila terally. The occlusive disease appears to be multi-segmental bilaterally. The left posterior tibial artery pulse is absent. Ordering Physician: Sean Christopher Referring Physician: Wale Vasquez Performed By: Reanna Howell RVT
--- NOTE | 2024-03-23 11:52 | WC ---
PHOTO 03/22/24 LEFT 2ND TOE
--- NOTE | 2024-03-23 11:53 | WC ---
PHOTO 03/22/2024 RIGHT MEDIAL ANKLE
== END 2024-03-23 23:59 | disposition home or self-care (01) ==
LOC: WC 10:00
PROVIDERS: PCP Pathology Anatomic Pathology & Clinical Pathology; Referring Provider Podiatrist; Visit Provider Podiatrist
DX: I73.89 Other specified peripheral vascular diseases (principal); L97.312 Non-pressure chronic ulcer of right ankle with fat layer exposed; L97.522 Non-pressure chronic ulcer of other part of left foot with fat layer exposed; L40.9 Psoriasis, unspecified; R60.0 Localized edema
CPT/HCPCS: 11042; 29580; 93923; 93970; 99213; G0463

== ENCOUNTER → 2024-04-07 | Outpatient (CLI) | payer MEDICARE, SELFPAY ==
[2024-04-07 18:26] LABS: Creatinine, Serum 3.24 mg/dL (0.70-1.30); EST Glomerular Filtration Rate 19 mL/min (>60); Est Glom Filt Rate - Afr Amer 24 mL/min (>60)
== END | disposition home or self-care (01) ==
LOC: LAB 17:23
PROVIDERS: PCP Pathology Anatomic Pathology & Clinical Pathology; Referring Provider Surgery Trauma Surgery; Visit Provider Surgery Trauma Surgery
DX: L97.312 Non-pressure chronic ulcer of right ankle with fat layer exposed (principal)
CPT/HCPCS: 36415; 82565

== ENCOUNTER 2024-04-19 11:00 | Outpatient (RCR) | payer MEDICARE, SELFPAY ==
[2024-03-29 10:23] VITALS: BP 140/50; PULSE 72; RESP 18; TEMP 36.1
--- NOTE | 2024-03-29 11:24 | PCM.WC.PN ---
History of Present Illness Date of Service: 03/29/24 Chief Complaint: Non-healing ulcerations b/l feet and legs History of Wound: Pt has an almost 12 month history of non-healing ulcerations b/l feet and legs, now with healed ulcers on the legs, ankles, and feet. He denies N/V/F/C/D/fatigue/malaise. There has been no drainage. Denies malodor or purulent drainage, or redness. He has a history of hairy cell leukemia that is in remission, has undergone chemotherapy in the past. Has a history of psoriasis. Denies N/V/F/C. He has no other known auto-immune disorders with the exception of psoriasis. Progress of Wound: Courtesy visit for Dr. Christopher. Left dorsal second toe ulcer is slightly smaller. Right medial ankle ulcer is slightly smaller from the last visit, ulcer bed is beefy pink. He has a new ulcer on his left anterior lower leg. He is unsure when this started. It has a pink wound bed. Arterial studies completed 03/23/2024 they showed monophasic Doppler waveforms at ankle level bilaterally. Pulse volume recording's appear diminished at the calf, ankle, and digital levels bilaterally. Resting ankle-brachial indices are moderately diminished bilaterally. Digital brachial indices are moderately to severely diminished bilaterally. 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 There is evidence to moderate to severe arterial occlusive disease at the digital level bilaterally. The occlusive disease appears to be multisegmental bilaterally. The left posterior tibial arterial pulse is absent. Right KT is 0.57. Left KT is 0.57. Venous studies were completed on 03/23/2024. There is no evidence of deep vein thrombosis bilaterally. 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 The accessory saphenous vein in the left proximal calf is incompetent. The rest of the study is negative. Objective Data Objective Data Vital Signs: Vital Signs Temp Pulse Resp BP O2 Del Method 96.9 F L 72 18 140/50 H Room Air 03/29/24 10:23 03/29/24 10:23 03/29/24 10:23 03/29/24 10:23 03/29/24 10:23 Oxygen Delivery Method Room Air Charges/Coding Procedures Integumentary [id number]: [id number] Robyn subq tissue 20 sq cm/< Debridement Note Debridement Note Wound debrided: #9 Right medial ankle ulcer Laterality: Right Type of Debridement: Excisional debridement Anesthesia Used: 5% Lidocaine Gel Depth: Down to and including healthy tissue and in the subcutaneous layer Percentage of wound debrided: 100 Instrument Used: 5mm curette Tissue Removed: Nonviable tissue and slough Severity: Fat Layer Exposed Amount of bleeding with debridement: Mild Bleeding Controlled with: Pressure and Compression and gauze Post-Debridement Measurements and Additional Note: Post-Debridement Measurements/Treatment ZAYRA - Nurse 1 - General Ulcer Assessment Start: 03/29/24 10:22 Freq: Status: Active Protocol: PATY Activity Type Activity Date Activity User E-sign Co-sign Detail Recorded Client Recorded Date Recorded By Document 03/29/24 10:23 ARNALDO rascon 03/29/24 10:41 ARNALDO 03/29/24 10:23 ZAYRA - Today's Visit Information Type of service Follow-up Visit (Physician/[employer]ON[employer] TECHNICIAN ) Arrival Mode Ambulatory, Walker Accompanied by Patient Identification Verified (Name & Yes ) Vital Signs Temperature (97.8 F-99.1 F) 96.9 F L Temperature Source Temporal Pulse Rate (60-100) 72 Pulse Location Monitor Respiratory Rate (12-18) 18 Respiratory rate source Observation Oxygen Delivery Method Room Air Blood Pressure (90/60-120/80) 140/50 H Blood Pressure Mean (mm Hg) 80 Source Monitor Position Sitting Blood Pressure Location Right Forearm History Since Last Visit- (Skip if this is Patient's initial visit) Have you changed medications since your No last visit? Any new allergies or adverse reactions No Had a fall/change in ADL's that may No increase risk of falls Signs or symptoms of abuse and/or No neglect since last visit Have you been in the hospital since your No last visit? Has dressing in place as prescribed Yes Has compression in place as prescribed Yes Has offloadiing in place as prescribed N/A Experienced any changes in pain level or No management Left Footwear Regular Shoe Right Footwear Regular Shoe Pain Scale: 0-10 Numeric Is Patient Pain Free? Yes Mireya Nurse 1 - General Ulcer Measurement Start: 03/29/24 10:22 Freq: Status: Active Protocol: Activity Type Activity Date Activity User E-sign Co-sign Detail Recorded Client Recorded Date Recorded By Document 03/29/24 10:23 ARNALDO rascon 03/29/24 10:41 KW 03/29/24 10:23 Wound Center Nurse 1 #10 LLE -Current Size (cm) - Length 0.8 -Current Size (cm) - Width 0.3 -Current Size (cm) - Depth 0.2 -Total Square Cm 0.24 -Date of Last Picture (Recall this 03/29/24 field) -Exudate Amt Small -Exudate Type Serosanguineous -Wound Margin Distinct, Outline Attached -Granulation Amt Small (1-33%) -Granulation Quality [place] -Necrosis Amt Large (67-100%) -Necrotic Tissue Type Adherent Slough -Texture (Jo-wound Skin Appearance) Assessed -Moisture (Jo-wound Skin Appearance) Assessed, Maceration -Color (Jo-wound Skin Appearance) Assessed, Erythema -Temperature (Jo-wound Skin No Abnormality Appearance) (Pt Warm) -Tenderness on Palpation (Jo-wound No Skin Appearance) -Ulcer Cleansing Soap and Water -Foul Odor after Cleansing No -Anesthetic Used 5% Lidocaine Gel #9 RT MED ANKLE -Current Size (cm) - Length 0.8 -Current Size (cm) - Width 0.9 -Current Size (cm) - Depth 0.2 -Total Square Cm 0.72 -Date of Last Picture (Recall this 03/29/24 field) -Exudate Amt Small -Exudate Type Serosanguineous -Wound Margin Distinct, Outline Attached -Granulation Amt Medium (34-66%) -Granulation Quality [place] -Necrosis Amt Medium (34-66%) -Necrotic Tissue Type Adherent Slough -Texture (Jo-wound Skin Appearance) Assessed -Moisture (Jo-wound Skin Appearance) Maceration -Color (Jo-wound Skin Appearance) Assessed, Erythema -Temperature (Jo-wound Skin No Abnormality Appearance) (Pt Warm) -Tenderness on Palpation (Jo-wound No Skin Appearance) -Ulcer Cleansing Soap and Water -Foul Odor after Cleansing No -Anesthetic Used 5% Lidocaine Gel #8 LT 2ND TOE -Current Size (cm) - Length 0.3 -Current Size (cm) - Width 0.7 -Current Size (cm) - Depth 0.1 -Total Square Cm 0.21 -Date of Last Picture (Recall this 03/29/24 field) -Exudate Amt Small -Exudate Type Serosanguineous -Wound Margin Distinct, Outline Attached -Granulation Amt Small (1-33%) -Granulation Quality [place] -Necrosis Amt Large (67-100%) -Necrotic Tissue Type Adherent Slough -Texture (Jo-wound Skin Appearance) Assessed -Moisture (Jo-wound Skin Appearance) Assessed -Color (Jo-wound Skin Appearance) Assessed, Erythema -Temperature (Jo-wound Skin No Abnormality Appearance) (Pt Warm) -Tenderness on Palpation (Jo-wound No Skin Appearance) -Ulcer Cleansing Soap and Water -Foul Odor after Cleansing No -Anesthetic Used 5% Lidocaine Gel WC - Nurse 2 - General Ulcer CM Notes Start: 03/29/24 10:22 Freq: Status: Active Protocol: Activity Type Activity Date Activity User E-sign Co-sign Detail Recorded Client Recorded Date Recorded By Document 03/29/24 10:53 JF 0000 03/29/24 10:57 JF 03/29/24 10:53 Wound Center Nurse 2 #10 LLE -Time 10:55 -Correct Patient Yes -Correct Side, Site, Position Yes -Correct Procedure Yes -Procedure Performed Yes -Type of Procedure Debridement -Clinical Debridement Subcutaneous -Tissue Removed Subcutaneous -Post Debridement (cm) - Length 0.7 -Post Debridement (cm) - Width 0.4 -Post Debridement (cm) - Depth 0.1 -Total Square (Post) (cm) 0.28 -Area of Debridement (cm) - Length 0.7 -Area of Debridement (cm) - Width 0.4 -Total Square (Area) (cm) 0.28 -Tunneling No -Undermining/Tunneling No -Circular Undermining No -Wound/Ulcer Outcome Not Healed -Ulcer Cleansing Rinsed/ Irrigated with Saline -Foul Odor after Cleansing No -Bioengineered Tissue No -Bleeding Controlled with Pressure -Treatment Response Procedure Tolerated Well -Offloading No -Debridement - Subq, 1st 20sq cm No #9 RT MED ANKLE -Time 10:55 -Correct Patient Yes -Correct Side, Site, Position Yes -Correct Procedure Yes -Procedure Performed Yes -Type of Procedure Debridement -Clinical Debridement Subcutaneous -Tissue Removed Subcutaneous -Post Debridement (cm) - Length 0.5 -Post Debridement (cm) - Width 0.9 -Post Debridement (cm) - Depth 0.2 -Total Square (Post) (cm) 0.45 -Area of Debridement (cm) - Length 0.5 -Area of Debridement (cm) - Width 0.9 -Total Square (Area) (cm) 0.45 -Tunneling No -Undermining/Tunneling No -Circular Undermining No -Wound/Ulcer Outcome Not Healed -Ulcer Cleansing Rinsed/ Irrigated with Saline -Foul Odor after Cleansing No -Bioengineered Tissue No -Bleeding Controlled with Pressure -Treatment Response Procedure Tolerated Well -Offloading No -Debridement - Subq, 1st 20sq cm No #8 LT 2ND TOE -Time 10:56 -Correct Patient Yes -Correct Side, Site, Position Yes -Correct Procedure Yes -Procedure Performed Yes -Type of Procedure Debridement -Clinical Debridement Subcutaneous -Tissue Removed Dermis -Post Debridement (cm) - Length 0.2 -Post Debridement (cm) - Width 0.7 -Post Debridement (cm) - Depth 0.1 -Total Square (Post) (cm) 0.14 -Area of Debridement (cm) - Length 0.2 -Area of Debridement (cm) - Width 0.7 -Total Square (Area) (cm) 0.14 -Tunneling No -Undermining/Tunneling No -Circular Undermining No -Wound/Ulcer Outcome Not Healed -Ulcer Cleansing Rinsed/ Irrigated with Saline -Foul Odor after Cleansing No -Bioengineered Tissue No -Bleeding Controlled with Pressure -Treatment Response Procedure Tolerated Well -Offloading No -Debridement - Subq, 1st 20sq cm Yes Pain Scale: 0-10 Numeric Is Patient Pain Free? Yes - Nurse 3 - General Ulcer D/C NN Start: 03/29/24 10:22 Freq: Status: Active Protocol: Activity Type Activity Date Activity User E-sign Co-sign Detail Recorded Client Recorded Date Recorded By Document 03/29/24 11:16 KW 03/29/24 11:18 KW 03/29/24 11:16 Wound Care Center Nurse 3 #10 LLE -Other Dressing BETADINE WITH PT SILVERCEL -Primary Dressing Covered/Secured with Dry Gauze & Roll Gauze, Secured with Tape #9 RT MED ANKLE -Other Dressing BETADINE WITH SILVERCEL -Primary Dressing Covered/Secured with Dry Gauze & Roll Gauze, Secured with Tape #8 LT 2ND TOE -Other Dressing BETADINE WITH PT SILVERCEL -Primary Dressing Covered/Secured with Dry Gauze Right -Tubular Bandage Single Layer -Size of Tubigrip Used Size F -Size F ($) 1 Left -Tubular Bandage Single Layer -Size of Tubigrip Used Size F -Size F ($) 1 Pain Scale: 0-10 Numeric Is Patient Pain Free? Yes Additional Wound Wound debrided: #8 Left dorsal second toe ulcer Laterality: Left Type of Debridement: Excisional debridement Anesthesia Used: 5% Lidocaine Gel Depth: Down to and including healthy tissue and in the subcutaneous layer Percentage of wound debrided: 100 Instrument Used: 3mm curette Tissue Removed: Nonviable tissue and slough Severity: Fat Layer Exposed Amount of bleeding with debridement: Mild Bleeding Controlled with: Compression and gauze Patient tolerated procedure: Patient tolerated procedure well Additional Wound Wound debrided: #10 Left lower extremity ulcer Laterality: Left Type of Debridement: Excisional debridement Anesthesia Used: 5% Lidocaine Gel Depth: Down to and including healthy tissue and in the subcutaneous layer Percentage of wound debrided: 100 Instrument Used: 5mm curette Tissue Removed: Nonviable tissue and slough. Severity: Fat Layer Exposed Amount of bleeding with debridement: Mild Bleeding Controlled with: Pressure and Compression and gauze Patient tolerated procedure: Patient tolerated procedure well Assessment/Plan Assessment/Plan (1) Non-pressure chronic ulcer of other part of left foot with fat layer exposed: CODE(S): L97.522 - Non-pressure chronic ulcer of other part of left foot with fat layer exposed (2) Non-pressure chronic ulcer of right ankle with fat layer exposed: CODE(S): L97.312 - Non-pressure chronic ulcer of right ankle with fat layer exposed (3) Other specified peripheral vascular diseases: CODE(S): I73.89 - Other specified peripheral vascular diseases (4) Non-pressure chronic ulcer of other part of left lower leg with fat layer exposed: CODE(S): L97.822 - Non-pressure chronic ulcer of other part of left lower leg with fat layer exposed (5) Diabetes mellitus with peripheral circulatory disorder: CODE(S): E11.51 - Type 2 diabetes mellitus with diabetic peripheral angiopathy without gangrene PLAN: Plan Courtesy visit for Dr. Christopher. There is a wound that is healing well to the dorsal left second PIPJ. No acute signs of infection. Patient has right medial ankle wound secondary to venous insufficiency. Patient has new ulcer on his left anterior lower leg. Wound care?Betadine to all the ulcers and then apply aloe genic topped with gauze. This will be done on Thursday. Patient would like assistance with dressing changes so we will attempt to get home health to come out on and Saturdays. Compression will be a single Tubigrip. Referring him to Dr. Goldberg due to his arterial studies. Follow-up in [address] Christopher.
--- NOTE | 2024-03-30 08:44 | WC ---
PHOTO 03/29/24 CLIFFORD
--- NOTE | 2024-03-30 08:45 | WC ---
PHOTO RIGHT MED ANKLE 03/29/24
--- NOTE | 2024-03-30 08:46 | WC ---
PHOTO LEFT 2ND TOE 03/29/24
[2024-04-05 10:55] VITALS: BP 110/47; PULSE 68; RESP 20; TEMP 36.4
--- NOTE | 2024-04-05 11:29 | PCM.WC.PN ---
History of Present Illness Date of Service: 04/05/24 Chief Complaint: Non-healing ulcerations b/l feet and legs Progress of Wound: Denies constitutional symptoms. Denies pain. No other complaints. Objective Data Objective Data Vital Signs: Vital Signs Temp Pulse Resp BP O2 Del Method 97.5 F L 68 20 H 110/47 L Room Air 04/05/24 10:55 04/05/24 10:55 04/05/24 10:55 04/05/24 10:55 03/29/24 10:23 Oxygen Delivery Method Room Air Physical Exam Narrative Neurovascular status diminished bilateral lower extremity. Patient has reduced hammertoe left second digit full-thickness wound to dorsal left second digit down to second subcutaneous tissue. No acute signs of infection. Full-thickness wound right medial ankle. No deep probing acute signs of infection. Skin bilaterally is atrophic. Const alert and oriented x3 Debridement Note Debridement Note Post-Debridement Measurements and Additional Note: Post-Debridement Measurements/Treatment - Nurse 1 - General Ulcer Assessment Start: 03/29/24 10:22 Freq: Status: Active Protocol: PATY Activity Type Activity Date Activity User E-sign Co-sign Detail Recorded Client Recorded Date Recorded By Document 03/29/24 10:23 KW kl 03/29/24 10:41 KW Document 04/05/24 10:55 [id number] 04/05/24 11:12 [place] 03/29/24 04/05/24 10:23 10:55 - Today's Visit Information Type of service Follow-up Visit Follow-up Visit (Physician/PIPELINE WELDER (Physician/PIPELINE WELDER ) ) Arrival Mode Ambulatory, Ambulatory Walker Accompanied by Patient Identification Verified (Name & Yes Yes ) Safety Precautions Fall Prevention Vital Signs Temperature (97.8 F-99.1 F) 96.9 F L 97.5 F L Temperature Source Temporal Temporal Pulse Rate (60-100) 72 68 Pulse Location Monitor Monitor Respiratory Rate (12-18) 18 20 H Respiratory rate source Observation Observation Oxygen Delivery Method Room Air Blood Pressure (90/60-120/80) 140/50 H 110/47 L Blood Pressure Mean (mm Hg) 80 68 Source Monitor Monitor Position Sitting Sitting Blood Pressure Location Right Forearm Left Arm History Since Last Visit- (Skip if this is Patient's initial visit) Have you changed medications since your No last visit? Any new allergies or adverse reactions No Had a fall/change in ADL's that may No increase risk of falls Signs or symptoms of abuse and/or No neglect since last visit Have you been in the hospital since your No Yes last visit? Has dressing in place as prescribed Yes Yes Has compression in place as prescribed Yes Yes Has offloadiing in place as prescribed N/A Yes Experienced any changes in pain level or No Yes management Left Footwear Regular Shoe Regular Shoe Right Footwear Regular Shoe Regular Shoe Pain Scale: 0-10 Numeric Is Patient Pain Free? Yes Yes WC - Nurse 1 - General Ulcer Measurement Start: 03/29/24 10:22 Freq: Status: Active Protocol: Activity Type Activity Date Activity User E-sign Co-sign Detail Recorded Client Recorded Date Recorded By Document 03/29/24 10:23 KW kl 03/29/24 10:41 KW Document 04/05/24 10:55 [id number] 04/05/24 11:12 MT 03/29/24 04/05/24 10:23 10:55 Wound Center Nurse 1 #10 LLE -Current Size (cm) - Length 0.8 0.9 -Current Size (cm) - Width 0.3 0.5 -Current Size (cm) - Depth 0.2 0.3 -Total Square Cm 0.24 0.45 -Date of Last Picture (Recall this 03/29/24 04/05/24 field) -Photo Taken Yes -Exudate Amt Small Medium -Exudate Type Serosanguineous Serosanguineous -Wound Margin Distinct, Thickened Outline Attached -Granulation Amt Small (1-33%) Medium (34-66%) -Granulation Quality [place] -Necrosis Amt Large (67-100%) Medium (34-66%) -Necrotic Tissue Type Adherent Slough Adherent Slough -Texture (Jo-wound Skin Appearance) Assessed Assessed -Moisture (Jo-wound Skin Appearance) Assessed, No Abnormality, Maceration Assessed -Color (Jo-wound Skin Appearance) Assessed, Assessed Erythema -Temperature (Jo-wound Skin No Abnormality No Abnormality Appearance) (Pt Warm) (Pt Warm) -Tenderness on Palpation (Jo-wound No No Skin Appearance) -Ulcer Cleansing Soap and Water Soap and Water -Foul Odor after Cleansing No No -Anesthetic Used 5% Lidocaine 4% Lidocaine Gel Solution #9 RT MED ANKLE -Current Size (cm) - Length 0.8 0.5 -Current Size (cm) - Width 0.9 1.0 -Current Size (cm) - Depth 0.2 0.3 -Total Square Cm 0.72 0.50 -Date of Last Picture (Recall this 03/29/24 04/05/24 field) -Photo Taken Yes -Epithelialization Large 67-100% -Tunneling No -Undermining/Tunneling No -Circular Undermining No -Exudate Amt Small Medium -Exudate Type Serosanguineous Serosanguineous -Wound Margin Distinct, Flat & Intact Outline Attached -Granulation Amt Medium (34-66%) Medium (34-66%) -Granulation Quality [place] Pale,[place] -Necrosis Amt Medium (34-66%) Medium (34-66%) -Necrotic Tissue Type Adherent Slough Adherent Slough -Texture (Jo-wound Skin Appearance) Assessed Assessed -Moisture (Jo-wound Skin Appearance) Maceration Assessed -Color (Jo-wound Skin Appearance) Assessed, Assessed Erythema -Temperature (Jo-wound Skin No Abnormality No Abnormality Appearance) (Pt Warm) (Pt Warm) -Tenderness on Palpation (Jo-wound No No Skin Appearance) -Ulcer Cleansing Soap and Water Not Cleansed -Foul Odor after Cleansing No No -Anesthetic Used 5% Lidocaine 4% Lidocaine Gel Solution #8 LT 2ND TOE -Current Size (cm) - Length 0.3 0.5 -Current Size (cm) - Width 0.7 0.7 -Current Size (cm) - Depth 0.1 0.2 -Total Square Cm 0.21 0.35 -Date of Last Picture (Recall this 03/29/24 04/05/24 field) -Photo Taken Yes -Tunneling No -Undermining/Tunneling No -Circular Undermining No -Exudate Amt Small Medium -Exudate Type Serosanguineous Serosanguineous -Wound Margin Distinct, Flat & Intact Outline Attached -Granulation Amt Small (1-33%) Medium (34-66%) -Granulation Quality [place] Pale,[place] -Necrosis Amt Large (67-100%) Medium (34-66%) -Necrotic Tissue Type Adherent Slough Adherent Slough -Texture (Jo-wound Skin Appearance) Assessed Assessed -Moisture (Jo-wound Skin Appearance) Assessed Assessed -Color (Jo-wound Skin Appearance) Assessed, Assessed Erythema -Temperature (Jo-wound Skin No Abnormality No Abnormality Appearance) (Pt Warm) (Pt Warm) -Tenderness on Palpation (Jo-wound No No Skin Appearance) -Ulcer Cleansing Soap and Water Soap and Water -Foul Odor after Cleansing No No -Anesthetic Used 5% Lidocaine 4% Lidocaine Gel Solution WC - Nurse 2 - General Ulcer CM Notes Start: 03/29/24 10:22 Freq: Status: Active Protocol: Activity Type Activity Date Activity User E-sign Co-sign Detail Recorded Client Recorded Date Recorded By Document 03/29/24 10:53 0000 03/29/24 10:57 Document 04/05/24 11:20 JF 0000 04/05/24 11:21 JF 03/29/24 04/05/24 10:53 11:20 Wound Center Nurse 2 #10 LLE -Time 10:55 -Correct Patient Yes No -Correct Side, Site, Position Yes No -Correct Procedure Yes No -Procedure Performed Yes No -Type of Procedure Debridement -Clinical Debridement Subcutaneous -Tissue Removed Subcutaneous -Post Debridement (cm) - Length 0.7 -Post Debridement (cm) - Width 0.4 -Post Debridement (cm) - Depth 0.1 -Total Square (Post) (cm) 0.28 -Area of Debridement (cm) - Length 0.7 -Area of Debridement (cm) - Width 0.4 -Total Square (Area) (cm) 0.28 -Tunneling No -Undermining/Tunneling No -Circular Undermining No -Wound/Ulcer Outcome Not Healed Not Healed -Ulcer Cleansing Rinsed/ Irrigated with Saline -Foul Odor after Cleansing No -Bioengineered Tissue No -Bleeding Controlled with Pressure -Treatment Response Procedure Tolerated Well -Offloading No -Debridement - Subq, 1st 20sq cm No #9 RT MED ANKLE -Time 10:55 -Correct Patient Yes No -Correct Side, Site, Position Yes No -Correct Procedure Yes No -Procedure Performed Yes No -Type of Procedure Debridement -Clinical Debridement Subcutaneous -Tissue Removed Subcutaneous -Post Debridement (cm) - Length 0.5 -Post Debridement (cm) - Width 0.9 -Post Debridement (cm) - Depth 0.2 -Total Square (Post) (cm) 0.45 -Area of Debridement (cm) - Length 0.5 -Area of Debridement (cm) - Width 0.9 -Total Square (Area) (cm) 0.45 -Tunneling No -Undermining/Tunneling No -Circular Undermining No -Wound/Ulcer Outcome Not Healed Not Healed -Ulcer Cleansing Rinsed/ Irrigated with Saline -Foul Odor after Cleansing No -Bioengineered Tissue No -Bleeding Controlled with Pressure -Treatment Response Procedure Tolerated Well -Offloading No -Debridement - Subq, 1st 20sq cm No #8 LT 2ND TOE -Time 10:56 -Correct Patient Yes No -Correct Side, Site, Position Yes No -Correct Procedure Yes No -Procedure Performed Yes No -Type of Procedure Debridement -Clinical Debridement Subcutaneous -Tissue Removed Dermis -Post Debridement (cm) - Length 0.2 -Post Debridement (cm) - Width 0.7 -Post Debridement (cm) - Depth 0.1 -Total Square (Post) (cm) 0.14 -Area of Debridement (cm) - Length 0.2 -Area of Debridement (cm) - Width 0.7 -Total Square (Area) (cm) 0.14 -Tunneling No -Undermining/Tunneling No -Circular Undermining No -Wound/Ulcer Outcome Not Healed Not Healed -Ulcer Cleansing Rinsed/ Irrigated with Saline -Foul Odor after Cleansing No -Bioengineered Tissue No -Bleeding Controlled with Pressure -Treatment Response Procedure Tolerated Well -Offloading No -Debridement - Subq, 1st 20sq cm Yes Pain Scale: 0-10 Numeric Is Patient Pain Free? Yes Yes WC - Nurse 3 - General Ulcer D/C NN Start: 03/29/24 10:22 Freq: Status: Active Protocol: Activity Type Activity Date Activity User E-sign Co-sign Detail Recorded Client Recorded Date Recorded By Document 03/29/24 11:16 KW 03/29/24 11:18 KW 03/29/24 11:16 Wound Care Center Nurse 3 #10 LLE -Other Dressing BETADINE WITH PT SILVERCEL -Primary Dressing Covered/Secured with Dry Gauze & Roll Gauze, Secured with Tape #9 RT MED ANKLE -Other Dressing BETADINE WITH SILVERCEL -Primary Dressing Covered/Secured with Dry Gauze & Roll Gauze, Secured with Tape #8 LT 2ND TOE -Other Dressing BETADINE WITH PT SILVERCEL -Primary Dressing Covered/Secured with Dry Gauze Right -Tubular Bandage Single Layer -Size of Tubigrip Used Size F -Size F ($) 1 Left -Tubular Bandage Single Layer -Size of Tubigrip Used Size F -Size F ($) 1 Pain Scale: 0-10 Numeric Is Patient Pain Free? Yes Assessment/Plan Assessment/Plan (1) Other specified peripheral vascular diseases: CODE(S): I73.89 - Other specified peripheral vascular diseases PLAN: Exam performed. arterial status diminished no debridement today will plan for local wound care awaiting vascular consultation continue betadine, DSD, tubigrip (2) Non-pressure chronic ulcer of right ankle with fat layer exposed: CODE(S): L97.312 - Non-pressure chronic ulcer of right ankle with fat layer exposed (3) Non-pressure chronic ulcer of other part of left foot with fat layer exposed: CODE(S): L97.522 - Non-pressure chronic ulcer of other part of left foot with fat layer exposed
[2024-04-12 11:48] VITALS: BP 156/49; PULSE 71; RESP 16; TEMP 35.4
--- NOTE | 2024-04-12 11:51 | PCM.WC.PN ---
History of Present Illness Date of Service: 04/12/24 Chief Complaint: Non-healing ulcerations b/l feet and legs History of Wound: Pt has an almost 12 month history of non-healing ulcerations b/l feet and legs, now with healed ulcers on the legs, ankles, and feet. He denies N/V/F/C/D/fatigue/malaise. There has been no drainage. Denies malodor or purulent drainage, or redness. He has a history of hairy cell leukemia that is in remission, has undergone chemotherapy in the past. Has a history of psoriasis. Denies N/V/F/C. He has no other known auto-immune disorders with the exception of psoriasis. Progress of Wound: Denies constitutional symptoms. Denies pain. No other complaints. Objective Data Objective Data Vital Signs: Vital Signs Temp Pulse Resp BP O2 Del Method 97.5 F L 68 20 H 110/47 L Room Air 04/05/24 10:55 04/05/24 10:55 04/05/24 10:55 04/05/24 10:55 03/29/24 10:23 Oxygen Delivery Method Room Air Physical Exam Narrative Neurovascular status diminished bilateral lower extremity. Patient has reduced hammertoe left second digit full-thickness wound to dorsal left second digit down to second subcutaneous tissue. No acute signs of infection. Full-thickness wound right medial ankle. Full-thickness wound anterior left leg. No deep probing acute signs of infection. Skin bilaterally is atrophic. Const alert and oriented x3 Debridement Note Debridement Note Post-Debridement Measurements and Additional Note: Post-Debridement Measurements/Treatment - Nurse 1 - General Ulcer Assessment Start: 03/29/24 10:22 Freq: Status: Active Protocol: [email or web address] Activity Type Activity Date Activity User E-sign Co-sign Detail Recorded Client Recorded Date Recorded By Document 03/29/24 10:23 KW kl 03/29/24 10:41 KW Document 04/05/24 10:55 [place] [id number] 04/05/24 11:12 [place] 03/29/24 04/05/24 10:23 10:55 - Today's Visit Information Type of service Follow-up Visit Follow-up Visit (Physician/WATER CHEMIST (Physician/WATER CHEMIST ) ) Arrival Mode Ambulatory, Ambulatory Walker Accompanied by Patient Identification Verified (Name & Yes Yes ) Safety Precautions Fall Prevention Vital Signs Temperature (97.8 F-99.1 F) 96.9 F L 97.5 F L Temperature Source Temporal Temporal Pulse Rate (60-100) 72 68 Pulse Location Monitor Monitor Respiratory Rate (12-18) 18 20 H Respiratory rate source Observation Observation Oxygen Delivery Method Room Air Blood Pressure (90/60-120/80) 140/50 H 110/47 L Blood Pressure Mean (mm Hg) 80 68 Source Monitor Monitor Position Sitting Sitting Blood Pressure Location Right Forearm Left Arm History Since Last Visit- (Skip if this is Patient's initial visit) Have you changed medications since your No last visit? Any new allergies or adverse reactions No Had a fall/change in ADL's that may No increase risk of falls Signs or symptoms of abuse and/or No neglect since last visit Have you been in the hospital since your No Yes last visit? Has dressing in place as prescribed Yes Yes Has compression in place as prescribed Yes Yes Has offloadiing in place as prescribed N/A Yes Experienced any changes in pain level or No Yes management Left Footwear Regular Shoe Regular Shoe Right Footwear Regular Shoe Regular Shoe Pain Scale: 0-10 Numeric Is Patient Pain Free? Yes Yes WC - Nurse 1 - General Ulcer Measurement Start: 03/29/24 10:22 Freq: Status: Active Protocol: Activity Type Activity Date Activity User E-sign Co-sign Detail Recorded Client Recorded Date Recorded By Document 03/29/24 10:23 [facility] 03/29/24 10:41 Document 04/05/24 10:55 [id number] 04/05/24 11:12 [place] 03/29/24 04/05/24 10:23 10:55 Wound Center Nurse 1 #10 LLE -Current Size (cm) - Length 0.8 0.9 -Current Size (cm) - Width 0.3 0.5 -Current Size (cm) - Depth 0.2 0.3 -Total Square Cm 0.24 0.45 -Date of Last Picture (Recall this 03/29/24 04/05/24 field) -Photo Taken Yes -Exudate Amt Small Medium -Exudate Type Serosanguineous Serosanguineous -Wound Margin Distinct, Thickened Outline Attached -Granulation Amt Small (1-33%) Medium (34-66%) -Granulation Quality [place] Pale,[place] -Necrosis Amt Large (67-100%) Medium (34-66%) -Necrotic Tissue Type Adherent Slough Adherent Slough -Texture (Jo-wound Skin Appearance) Assessed Assessed -Moisture (Jo-wound Skin Appearance) Assessed, No Abnormality, Maceration Assessed -Color (Jo-wound Skin Appearance) Assessed, Assessed Erythema -Temperature (Jo-wound Skin No Abnormality No Abnormality Appearance) (Pt Warm) (Pt Warm) -Tenderness on Palpation (Jo-wound No No Skin Appearance) -Ulcer Cleansing Soap and Water Soap and Water -Foul Odor after Cleansing No No -Anesthetic Used 5% Lidocaine 4% Lidocaine Gel Solution #9 RT MED ANKLE -Current Size (cm) - Length 0.8 0.5 -Current Size (cm) - Width 0.9 1.0 -Current Size (cm) - Depth 0.2 0.3 -Total Square Cm 0.72 0.50 -Date of Last Picture (Recall this 03/29/24 04/05/24 field) -Photo Taken Yes -Epithelialization Large 67-100% -Tunneling No -Undermining/Tunneling No -Circular Undermining No -Exudate Amt Small Medium -Exudate Type Serosanguineous Serosanguineous -Wound Margin Distinct, Flat & Intact Outline Attached -Granulation Amt Medium (34-66%) Medium (34-66%) -Granulation Quality [place] Pale,[place] -Necrosis Amt Medium (34-66%) Medium (34-66%) -Necrotic Tissue Type Adherent Slough Adherent Slough -Texture (Jo-wound Skin Appearance) Assessed Assessed -Moisture (Jo-wound Skin Appearance) Maceration Assessed -Color (Jo-wound Skin Appearance) Assessed, Assessed Erythema -Temperature (Jo-wound Skin No Abnormality No Abnormality Appearance) (Pt Warm) (Pt Warm) -Tenderness on Palpation (Jo-wound No No Skin Appearance) -Ulcer Cleansing Soap and Water Not Cleansed -Foul Odor after Cleansing No No -Anesthetic Used 5% Lidocaine 4% Lidocaine Gel Solution #8 LT 2ND TOE -Current Size (cm) - Length 0.3 0.5 -Current Size (cm) - Width 0.7 0.7 -Current Size (cm) - Depth 0.1 0.2 -Total Square Cm 0.21 0.35 -Date of Last Picture (Recall this 03/29/24 04/05/24 field) -Photo Taken Yes -Tunneling No -Undermining/Tunneling No -Circular Undermining No -Exudate Amt Small Medium -Exudate Type Serosanguineous Serosanguineous -Wound Margin Distinct, Flat & Intact Outline Attached -Granulation Amt Small (1-33%) Medium (34-66%) -Granulation Quality [place] Pale,[place] -Necrosis Amt Large (67-100%) Medium (34-66%) -Necrotic Tissue Type Adherent Slough Adherent Slough -Texture (Jo-wound Skin Appearance) Assessed Assessed -Moisture (Jo-wound Skin Appearance) Assessed Assessed -Color (Jo-wound Skin Appearance) Assessed, Assessed Erythema -Temperature (Jo-wound Skin No Abnormality No Abnormality Appearance) (Pt Warm) (Pt Warm) -Tenderness on Palpation (Jo-wound No No Skin Appearance) -Ulcer Cleansing Soap and Water Soap and Water -Foul Odor after Cleansing No No -Anesthetic Used 5% Lidocaine 4% Lidocaine Gel Solution WC - Nurse 2 - General Ulcer CM Notes Start: 03/29/24 10:22 Freq: Status: Active Protocol: Activity Type Activity Date Activity User E-sign Co-sign Detail Recorded Client Recorded Date Recorded By Document 03/29/24 10:53 0000 03/29/24 10:57 Document 04/05/24 11:20 0000 04/05/24 11:21 03/29/24 04/05/24 10:53 11:20 Wound Center Nurse 2 #10 LLE -Time 10:55 -Correct Patient Yes No -Correct Side, Site, Position Yes No -Correct Procedure Yes No -Procedure Performed Yes No -Type of Procedure Debridement -Clinical Debridement Subcutaneous -Tissue Removed Subcutaneous -Post Debridement (cm) - Length 0.7 -Post Debridement (cm) - Width 0.4 -Post Debridement (cm) - Depth 0.1 -Total Square (Post) (cm) 0.28 -Area of Debridement (cm) - Length 0.7 -Area of Debridement (cm) - Width 0.4 -Total Square (Area) (cm) 0.28 -Tunneling No -Undermining/Tunneling No -Circular Undermining No -Wound/Ulcer Outcome Not Healed Not Healed -Ulcer Cleansing Rinsed/ Irrigated with Saline -Foul Odor after Cleansing No -Bioengineered Tissue No -Bleeding Controlled with Pressure -Treatment Response Procedure Tolerated Well -Offloading No -Debridement - Subq, 1st 20sq cm No #9 RT MED ANKLE -Time 10:55 -Correct Patient Yes No -Correct Side, Site, Position Yes No -Correct Procedure Yes No -Procedure Performed Yes No -Type of Procedure Debridement -Clinical Debridement Subcutaneous -Tissue Removed Subcutaneous -Post Debridement (cm) - Length 0.5 -Post Debridement (cm) - Width 0.9 -Post Debridement (cm) - Depth 0.2 -Total Square (Post) (cm) 0.45 -Area of Debridement (cm) - Length 0.5 -Area of Debridement (cm) - Width 0.9 -Total Square (Area) (cm) 0.45 -Tunneling No -Undermining/Tunneling No -Circular Undermining No -Wound/Ulcer Outcome Not Healed Not Healed -Ulcer Cleansing Rinsed/ Irrigated with Saline -Foul Odor after Cleansing No -Bioengineered Tissue No -Bleeding Controlled with Pressure -Treatment Response Procedure Tolerated Well -Offloading No -Debridement - Subq, 1st 20sq cm No #8 LT 2ND TOE -Time 10:56 -Correct Patient Yes No -Correct Side, Site, Position Yes No -Correct Procedure Yes No -Procedure Performed Yes No -Type of Procedure Debridement -Clinical Debridement Subcutaneous -Tissue Removed Dermis -Post Debridement (cm) - Length 0.2 -Post Debridement (cm) - Width 0.7 -Post Debridement (cm) - Depth 0.1 -Total Square (Post) (cm) 0.14 -Area of Debridement (cm) - Length 0.2 -Area of Debridement (cm) - Width 0.7 -Total Square (Area) (cm) 0.14 -Tunneling No -Undermining/Tunneling No -Circular Undermining No -Wound/Ulcer Outcome Not Healed Not Healed -Ulcer Cleansing Rinsed/ Irrigated with Saline -Foul Odor after Cleansing No -Bioengineered Tissue No -Bleeding Controlled with Pressure -Treatment Response Procedure Tolerated Well -Offloading No -Debridement - Subq, 1st 20sq cm Yes Pain Scale: 0-10 Numeric Is Patient Pain Free? Yes Yes WC - Nurse 3 - General Ulcer D/C NN Start: 03/29/24 10:22 Freq: Status: Active Protocol: Activity Type Activity Date Activity User E-sign Co-sign Detail Recorded Client Recorded Date Recorded By Document 03/29/24 11:16 KW kl 03/29/24 11:18 KW Document 04/05/24 11:25 [place] [id number] 04/05/24 11:37 [place] 03/29/24 04/05/24 11:16 11:25 Wound Care Center Nurse 3 #10 LLE -Primary Dressing Applied Aquacel Extra -Other Dressing BETADINE WITH betadine PT SILVERCEL -Primary Dressing Covered/Secured with Dry Gauze & Dry Gauze & Roll Gauze, Roll Gauze, Secured with Secured with Tape Tape -Aquacel Extra 1 #9 RT MED ANKLE -Other Dressing BETADINE WITH SILVERCEL -Primary Dressing Covered/Secured with Dry Gauze & Roll Gauze, Secured with Tape #8 LT 2ND TOE -Other Dressing BETADINE WITH PT SILVERCEL -Primary Dressing Covered/Secured with Dry Gauze Right -Tubular Bandage Single Layer -Size of Tubigrip Used Size F -Size F ($) 1 -Other pt has tubigrip at home. Left -Tubular Bandage Single Layer -Size of Tubigrip Used Size F -Size F ($) 1 Pain Scale: 0-10 Numeric Is Patient Pain Free? Yes Yes WC - Visit Discharge Discharge Condition Stable Ambulatory Status Ambulatory Transportation Private Auto Medication Reconcilliation completed & No provided to patient/care provider Clinical Summary of Care Provided Yes Notes: pt has own tubigrip at home. Assessment/Plan Assessment/Plan (1) Other specified peripheral vascular diseases: CODE(S): I73.89 - Other specified peripheral vascular diseases PLAN: Exam performed. arterial status/venous status diminished vascular surgery recommmending continued local wound care today bilateral leg wounds and left 2nd toe wounds were debrided: Excisional debridement performed down to including level of subcutaneous tissue of all nonviable tissue using 5 mm dermal curette. Topical anesthesia was used. Patient tolerated procedure well. Hemostasis obtained with light compression pre and postdebridement measurements documented nursing notes. Today wounds redressed with hydrogel dry sterile dressing Tubigrip. Self-care dressing changes will be performed twice a week outside of wound care visits per the patient's . Patient has no weightbearing restrictions. Recommend left surgical shoe to the left lower extremity. Follow-up in 1 week. There are any delays in wound healing we will consider rereferral to vascular surgery. (2) Non-pressure chronic ulcer of right ankle with fat layer exposed: CODE(S): L97.312 - Non-pressure chronic ulcer of right ankle with fat layer exposed (3) Non-pressure chronic ulcer of other part of left foot with fat layer exposed: CODE(S): L97.522 - Non-pressure chronic ulcer of other part of left foot with fat layer exposed (4) Non-pressure chronic ulcer of left ankle with fat layer exposed: CODE(S): L97.322 - Non-pressure chronic ulcer of left ankle with fat layer exposed
--- NOTE | 2024-04-14 10:13 | WC ---
PHOTO 04/05/24 LEFT SECOND TOE
--- NOTE | 2024-04-14 10:14 | WC ---
PHOTO 04/05/24 RIGHT [facility] ANKLE
--- NOTE | 2024-04-14 14:05 | WC ---
PHOTO 04/12/24 LEFT SECOND TOE
--- NOTE | 2024-04-14 14:06 | WC ---
PHOTO 04/12/24 RIGHT MEDIAL ANKLE
[2024-04-19 11:07] VITALS: BP 166/75; PULSE 71; RESP 18; TEMP 36
--- NOTE | 2024-04-19 11:37 | PCM.WC.PN ---
History of Present Illness Date of Service: 04/19/24 Chief Complaint: Non-healing ulcerations b/l feet and legs History of Wound: Pt has an almost 12 month history of non-healing ulcerations b/l feet and legs, now with healed ulcers on the legs, ankles, and feet. He denies N/V/F/C/D/fatigue/malaise. There has been no drainage. Denies malodor or purulent drainage, or redness. He has a history of hairy cell leukemia that is in remission, has undergone chemotherapy in the past. Has a history of psoriasis. Denies N/V/F/C. He has no other known auto-immune disorders with the exception of psoriasis. Progress of Wound: Denies constitutional symptoms. Denies pain. No other complaints. Objective Data Objective Data Vital Signs: Vital Signs Temp Pulse Resp BP O2 Del Method 96.8 F L 71 18 166/75 H Room Air 04/19/24 11:07 04/19/24 11:07 04/19/24 11:07 04/19/24 11:07 03/29/24 10:23 Oxygen Delivery Method Room Air Physical Exam Narrative Neurovascular status diminished bilateral lower extremity. Patient has reduced hammertoe left second digit full-thickness wound to dorsal left second digit down to second subcutaneous tissue. No acute signs of infection. Full-thickness wound right medial ankle. Full-thickness wound anterior left leg. No deep probing acute signs of infection. Skin bilaterally is atrophic. Const alert and oriented x3 Debridement Note Debridement Note Post-Debridement Measurements and Additional Note: Post-Debridement Measurements/Treatment - Nurse 1 - General Ulcer Assessment Start: 03/29/24 10:22 Freq: Status: Active Protocol: PATY Activity Type Activity Date Activity User E-sign Co-sign Detail Recorded Client Recorded Date Recorded By Document 03/29/24 10:23 KW kl 03/29/24 10:41 KW Document 04/05/24 10:55 TN [id number] 04/05/24 11:12 TN Document 04/12/24 11:48 JF [id number] 04/12/24 11:53 JF Document 04/19/24 11:07 RB [id number] 04/19/24 11:14 RB 03/29/24 04/05/24 04/12/24 10:23 10:55 11:48 WC - Today's Visit Information Type of service Follow-up Visit Follow-up Visit Follow-up Visit (Physician/PRIMARY CARE PROVIDER (Physician/PRIMARY CARE PROVIDER (Physician/PRIMARY CARE PROVIDER ) ) ) Arrival Mode Ambulatory, Ambulatory Ambulatory, Walker Walker Transfer Assistance Accompanied by Patient Identification Verified (Name & Yes Yes Yes ) Patient Requires Transmission-Based No Precautions Safety Precautions Fall Prevention Vital Signs Temperature (97.8 F-99.1 F) 96.9 F L 97.5 F L 95.7 F L Temperature Source Temporal Temporal Temporal Pulse Rate (60-100) 72 68 71 Pulse Location Monitor Monitor Monitor Respiratory Rate (12-18) 18 20 H 16 Respiratory rate source Observation Observation Observation Oxygen Delivery Method Room Air Blood Pressure (90/60-120/80) 140/50 H 110/47 L 156/49 H Blood Pressure Mean (mm Hg) 80 68 84 Source Monitor Monitor Monitor Position Sitting Sitting Semi-Fowlers Blood Pressure Location Right Forearm Left Arm Right Forearm History Since Last Visit- (Skip if this is Patient's initial visit) Have you changed medications since your No No last visit? Any new allergies or adverse reactions No No Had a fall/change in ADL's that may No No increase risk of falls Signs or symptoms of abuse and/or No No neglect since last visit Have you been in the hospital since your No Yes No last visit? Has dressing in place as prescribed Yes Yes Yes Has compression in place as prescribed Yes Yes Yes Has offloadiing in place as prescribed N/A Yes Yes Experienced any changes in pain level or No Yes No management Left Footwear Regular Shoe Regular Shoe Regular Shoe Right Footwear Regular Shoe Regular Shoe Regular Shoe Pain Scale: 0-10 Numeric Is Patient Pain Free? Yes Yes Yes 04/19/24 11:07 [facility] Today's Visit Information Type of service Follow-up Visit (Physician/PRIMARY CARE PROVIDER ) Arrival Mode Ambulatory Transfer Assistance None Accompanied by Patient Identification Verified (Name & Yes ) Patient Requires Transmission-Based No Precautions Safety Precautions Vital Signs Temperature (97.8 F-99.1 F) 96.8 F L Temperature Source Temporal Pulse Rate (60-100) 71 Pulse Location Monitor Respiratory Rate (12-18) 18 Respiratory rate source Observation Oxygen Delivery Method Blood Pressure (90/60-120/80) 166/75 H Blood Pressure Mean (mm Hg) 105 Source Monitor Position Semi-Fowlers Blood Pressure Location Left Arm History Since Last Visit- (Skip if this is Patient's initial visit) Have you changed medications since your No last visit? Any new allergies or adverse reactions No Had a fall/change in ADL's that may No increase risk of falls Signs or symptoms of abuse and/or No neglect since last visit Have you been in the hospital since your No last visit? Has dressing in place as prescribed Yes Has compression in place as prescribed Yes Has offloadiing in place as prescribed No Experienced any changes in pain level or No management Left Footwear Regular Shoe Right Footwear Regular Shoe Pain Scale: 0-10 Numeric Is Patient Pain Free? Yes WC - Nurse 1 - General Ulcer Measurement Start: 03/29/24 10:22 Freq: Status: Active Protocol: Activity Type Activity Date Activity User E-sign Co-sign Detail Recorded Client Recorded Date Recorded By Document 03/29/24 10:23 KW 03/29/24 10:41 Document 04/05/24 10:55 [id number] 04/05/24 11:12 [place] Document 04/12/24 11:48 JF [id number] 04/12/24 11:53 Document 04/19/24 11:07 RB [id number] 04/19/24 11:14 RB 03/29/24 04/05/24 04/12/24 10:23 10:55 11:48 Wound Center Nurse 1 #10 LLE -Combined with other wound No -Current Size (cm) - Length 0.8 0.9 0.8 -Current Size (cm) - Width 0.3 0.5 0.5 -Current Size (cm) - Depth 0.2 0.3 0.1 -Total Square Cm 0.24 0.45 0.40 -Date of Last Picture (Recall this 03/29/24 04/05/24 field) -Photo Taken Yes No -Epithelialization Small 1-33% -Tunneling No -Undermining/Tunneling No -Circular Undermining No -Exudate Amt Small Medium Small -Exudate Type Serosanguineous Serosanguineous Serosanguineous -Wound Margin Distinct, Thickened Flat & Intact Outline Attached -Granulation Amt Small (1-33%) Medium (34-66%) None Present (0 %) -Granulation Quality [place] Pale,[place] -Slough/Fibrin Yes -Necrosis Amt Large (67-100%) Medium (34-66%) Large (67-100%) -Necrotic Tissue Type Adherent Slough Adherent Slough Adherent Slough -Structure Exposed N/A -Texture (Jo-wound Skin Appearance) Assessed Assessed Assessed, Localized Edema -Moisture (Jo-wound Skin Appearance) Assessed, No Abnormality, Assessed,Dry/ Maceration Assessed Scaly -Color (Jo-wound Skin Appearance) Assessed, Assessed Assessed Erythema -Temperature (Jo-wound Skin No Abnormality No Abnormality No Abnormality Appearance) (Pt Warm) (Pt Warm) (Pt Warm) -Tenderness on Palpation (Jo-wound No No No Skin Appearance) -Ulcer Cleansing Soap and Water Soap and Water Wound Cleanser -Foul Odor after Cleansing No No No -Anesthetic Used 5% Lidocaine 4% Lidocaine 5% Lidocaine Gel Solution Gel #9 RT MED ANKLE -Combined with other wound No -Current Size (cm) - Length 0.8 0.5 0.4 -Current Size (cm) - Width 0.9 1.0 0.8 -Current Size (cm) - Depth 0.2 0.3 0.3 -Total Square Cm 0.72 0.50 0.32 -Date of Last Picture (Recall this 03/29/24 04/05/24 field) -Photo Taken Yes No -Epithelialization Large 67-100% Small 1-33% -Tunneling No No -Undermining/Tunneling No No -Circular Undermining No No -Exudate Amt Small Medium Small -Exudate Type Serosanguineous Serosanguineous Serosanguineous -Wound Margin Distinct, Flat & Intact Flat & Intact Outline Attached -Granulation Amt Medium (34-66%) Medium (34-66%) None Present (0 %) -Granulation Quality [place] Pale,[place] -Slough/Fibrin Yes -Necrosis Amt Medium (34-66%) Medium (34-66%) Large (67-100%) -Necrotic Tissue Type Adherent Slough Adherent Slough Adherent Slough -Structure Exposed N/A -Texture (Jo-wound Skin Appearance) Assessed Assessed Assessed, Localized Edema -Moisture (Jo-wound Skin Appearance) Maceration Assessed Assessed,Dry/ Scaly -Color (Jo-wound Skin Appearance) Assessed, Assessed Assessed Erythema -Temperature (Jo-wound Skin No Abnormality No Abnormality No Abnormality Appearance) (Pt Warm) (Pt Warm) (Pt Warm) -Tenderness on Palpation (Jo-wound No No No Skin Appearance) -Ulcer Cleansing Soap and Water Not Cleansed Wound Cleanser -Foul Odor after Cleansing No No No -Anesthetic Used 5% Lidocaine 4% Lidocaine 5% Lidocaine Gel Solution Gel #8 LT 2ND TOE -Combined with other wound No -Current Size (cm) - Length 0.3 0.5 0.2 -Current Size (cm) - Width 0.7 0.7 0.5 -Current Size (cm) - Depth 0.1 0.2 0.1 -Total Square Cm 0.21 0.35 0.10 -Date of Last Picture (Recall this 03/29/24 04/05/24 field) -Photo Taken Yes No -Epithelialization Small 1-33% -Tunneling No No -Undermining/Tunneling No No -Circular Undermining No No -Exudate Amt Small Medium Small -Exudate Type Serosanguineous Serosanguineous Serosanguineous -Wound Margin Distinct, Flat & Intact Flat & Intact Outline Attached -Granulation Amt Small (1-33%) Medium (34-66%) None Present (0 %) -Granulation Quality [place] Pale,[place] -Slough/Fibrin Yes -Necrosis Amt Large (67-100%) Medium (34-66%) Large (67-100%) -Necrotic Tissue Type Adherent Slough Adherent Slough Adherent Slough -Structure Exposed N/A -Texture (Jo-wound Skin Appearance) Assessed Assessed Assessed -Moisture (Jo-wound Skin Appearance) Assessed Assessed Assessed,Dry/ Scaly -Color (Jo-wound Skin Appearance) Assessed, Assessed Assessed Erythema -Temperature (Jo-wound Skin No Abnormality No Abnormality No Abnormality Appearance) (Pt Warm) (Pt Warm) (Pt Warm) -Tenderness on Palpation (Jo-wound No No No Skin Appearance) -Ulcer Cleansing Soap and Water Soap and Water Wound Cleanser -Foul Odor after Cleansing No No No -Anesthetic Used 5% Lidocaine 4% Lidocaine 5% Lidocaine Gel Solution Gel Lower Limb Edema Present NA 04/19/24 11:07 Wound Center Nurse 1 #10 LLE -Combined with other wound No -Current Size (cm) - Length 1.1 -Current Size (cm) - Width 0.6 -Current Size (cm) - Depth 0.2 -Total Square Cm 0.66 -Date of Last Picture (Recall this field) -Photo Taken -Epithelialization -Tunneling No -Undermining/Tunneling No -Circular Undermining No -Exudate Amt Medium -Exudate Type Serosanguineous -Wound Margin Distinct, Outline Attached -Granulation Amt Medium (34-66%) -Granulation Quality [place] -Slough/Fibrin Yes -Necrosis Amt Medium (34-66%) -Necrotic Tissue Type Adherent Slough -Structure Exposed N/A -Texture (Jo-wound Skin Appearance) Assessed, Friable -Moisture (Jo-wound Skin Appearance) Assessed -Color (Jo-wound Skin Appearance) Assessed -Temperature (Jo-wound Skin No Abnormality Appearance) (Pt Warm) -Tenderness on Palpation (Jo-wound No Skin Appearance) -Ulcer Cleansing Wound Cleanser -Foul Odor after Cleansing Yes, Due to Product Use -Anesthetic Used 5% Lidocaine Gel #9 RT MED ANKLE -Combined with other wound No -Current Size (cm) - Length 0.5 -Current Size (cm) - Width 0.7 -Current Size (cm) - Depth 0.2 -Total Square Cm 0.35 -Date of Last Picture (Recall this field) -Photo Taken -Epithelialization -Tunneling No -Undermining/Tunneling No -Circular Undermining No -Exudate Amt Medium -Exudate Type Serosanguineous -Wound Margin Distinct, Outline Attached -Granulation Amt Medium (34-66%) -Granulation Quality [place] -Slough/Fibrin Yes -Necrosis Amt Medium (34-66%) -Necrotic Tissue Type Adherent Slough -Structure Exposed N/A -Texture (Jo-wound Skin Appearance) Assessed, Friable -Moisture (Jo-wound Skin Appearance) Assessed -Color (Jo-wound Skin Appearance) Assessed -Temperature (Jo-wound Skin No Abnormality Appearance) (Pt Warm) -Tenderness on Palpation (Jo-wound No Skin Appearance) -Ulcer Cleansing Wound Cleanser -Foul Odor after Cleansing No -Anesthetic Used 5% Lidocaine Gel #8 LT 2ND TOE -Combined with other wound -Current Size (cm) - Length 0.2 -Current Size (cm) - Width 0.3 -Current Size (cm) - Depth 0.1 -Total Square Cm 0.06 -Date of Last Picture (Recall this field) -Photo Taken -Epithelialization -Tunneling No -Undermining/Tunneling No -Circular Undermining No -Exudate Amt Medium -Exudate Type Serosanguineous -Wound Margin Distinct, Outline Attached -Granulation Amt Medium (34-66%) -Granulation Quality [place] -Slough/Fibrin Yes -Necrosis Amt Medium (34-66%) -Necrotic Tissue Type Adherent Slough -Structure Exposed N/A -Texture (Jo-wound Skin Appearance) Assessed, Friable -Moisture (Jo-wound Skin Appearance) Assessed -Color (Jo-wound Skin Appearance) Assessed -Temperature (Jo-wound Skin No Abnormality Appearance) (Pt Warm) -Tenderness on Palpation (Jo-wound No Skin Appearance) -Ulcer Cleansing Wound Cleanser -Foul Odor after Cleansing No -Anesthetic Used 5% Lidocaine Gel Lower Limb Edema Present Yes WC - Nurse 2 - General Ulcer CM Notes Start: 03/29/24 10:22 Freq: Status: Active Protocol: Activity Type Activity Date Activity User E-sign Co-sign Detail Recorded Client Recorded Date Recorded By Document 03/29/24 10:53 0000 03/29/24 10:57 Document 04/05/24 11:20 0000 04/05/24 11:21 Document 04/12/24 11:48 [id number] 04/12/24 11:53 Document 04/19/24 11:32 [id number] 04/19/24 11:35 03/29/24 04/05/24 04/12/24 10:53 11:20 11:48 Wound Center Nurse 2 #10 LLE -Time 10:55 -Correct Patient Yes No Yes -Correct Side, Site, Position Yes No Yes -Correct Procedure Yes No Yes -Procedure Performed Yes No Yes -Type of Procedure Debridement Debridement -Clinical Debridement Subcutaneous Subcutaneous -Tissue Removed Subcutaneous Subcutaneous -Post Debridement (cm) - Length 0.7 0.9 -Post Debridement (cm) - Width 0.4 0.5 -Post Debridement (cm) - Depth 0.1 0.1 -Total Square (Post) (cm) 0.28 0.45 -Area of Debridement (cm) - Length 0.7 0.9 -Area of Debridement (cm) - Width 0.4 0.5 -Total Square (Area) (cm) 0.28 0.45 -Tunneling No No -Undermining/Tunneling No No -Circular Undermining No No -Wound/Ulcer Outcome Not Healed Not Healed Not Healed -Ulcer Cleansing Rinsed/ Irrigated with Saline -Foul Odor after Cleansing No -Bioengineered Tissue No No -Bleeding Controlled with Pressure Pressure -Treatment Response Procedure Procedure Tolerated Well Tolerated Well -Offloading No No -Debridement - Subq, 1st 20sq cm No No #9 RT MED ANKLE -Time 10:55 11:52 -Correct Patient Yes No Yes -Correct Side, Site, Position Yes No Yes -Correct Procedure Yes No Yes -Procedure Performed Yes No Yes -Type of Procedure Debridement Debridement -Clinical Debridement Subcutaneous Subcutaneous -Tissue Removed Subcutaneous Subcutaneous -Post Debridement (cm) - Length 0.5 0.5 -Post Debridement (cm) - Width 0.9 0.8 -Post Debridement (cm) - Depth 0.2 0.3 -Total Square (Post) (cm) 0.45 0.40 -Area of Debridement (cm) - Length 0.5 0.5 -Area of Debridement (cm) - Width 0.9 0.8 -Total Square (Area) (cm) 0.45 0.40 -Tunneling No No -Undermining/Tunneling No No -Circular Undermining No No -Wound/Ulcer Outcome Not Healed Not Healed Not Healed -Ulcer Cleansing Rinsed/ Rinsed/ Irrigated with Irrigated with Saline Saline -Foul Odor after Cleansing No No -Bioengineered Tissue No No -Bleeding Controlled with Pressure Pressure -Treatment Response Procedure Procedure Tolerated Well Tolerated Well -Offloading No No -Debridement - Subq, 1st 20sq cm No No #8 LT 2ND TOE -Time 10:56 11:52 -Correct Patient Yes No Yes -Correct Side, Site, Position Yes No Yes -Correct Procedure Yes No Yes -Procedure Performed Yes No Yes -Type of Procedure Debridement Debridement -Clinical Debridement Subcutaneous Subcutaneous -Tissue Removed Dermis Subcutaneous -Post Debridement (cm) - Length 0.2 0.2 -Post Debridement (cm) - Width 0.7 0.6 -Post Debridement (cm) - Depth 0.1 0.1 -Total Square (Post) (cm) 0.14 0.12 -Area of Debridement (cm) - Length 0.2 0.2 -Area of Debridement (cm) - Width 0.7 0.6 -Total Square (Area) (cm) 0.14 0.12 -Tunneling No No -Undermining/Tunneling No No -Circular Undermining No No -Wound/Ulcer Outcome Not Healed Not Healed Not Healed -Ulcer Cleansing Rinsed/ Rinsed/ Irrigated with Irrigated with Saline Saline -Foul Odor after Cleansing No No -Bioengineered Tissue No No -Bleeding Controlled with Pressure Pressure -Treatment Response Procedure Procedure Tolerated Well Tolerated Well -Offloading No No -Debridement - Subq, 1st 20sq cm Yes Yes Pain Scale: 0-10 Numeric Is Patient Pain Free? Yes Yes Yes 04/19/24 11:32 Wound Center Nurse 2 #10 LLE -Time 11:34 -Correct Patient Yes -Correct Side, Site, Position Yes -Correct Procedure Yes -Procedure Performed Yes -Type of Procedure Debridement -Clinical Debridement Subcutaneous -Tissue Removed Subcutaneous -Post Debridement (cm) - Length 1.1 -Post Debridement (cm) - Width 0.9 -Post Debridement (cm) - Depth 0.3 -Total Square (Post) (cm) 0.99 -Area of Debridement (cm) - Length 1.1 -Area of Debridement (cm) - Width 0.9 -Total Square (Area) (cm) 0.99 -Tunneling No -Undermining/Tunneling No -Circular Undermining No -Wound/Ulcer Outcome Not Healed -Ulcer Cleansing Rinsed/ Irrigated with Saline -Foul Odor after Cleansing No -Bioengineered Tissue No -Bleeding Controlled with Pressure -Treatment Response Procedure Tolerated Well -Offloading No -Debridement - Subq, 20sq cm No #9 RT MED ANKLE -Time 11:34 -Correct Patient Yes -Correct Side, Site, Position Yes -Correct Procedure Yes -Procedure Performed Yes -Type of Procedure Debridement -Clinical Debridement Subcutaneous -Tissue Removed Subcutaneous -Post Debridement (cm) - Length 0.4 -Post Debridement (cm) - Width 0.6 -Post Debridement (cm) - Depth 0.1 -Total Square (Post) (cm) 0.24 -Area of Debridement (cm) - Length 0.4 -Area of Debridement (cm) - Width 0.6 -Total Square (Area) (cm) 0.24 -Tunneling No -Undermining/Tunneling No -Circular Undermining No -Wound/Ulcer Outcome Not Healed -Ulcer Cleansing Rinsed/ Irrigated with Saline -Foul Odor after Cleansing No -Bioengineered Tissue No -Bleeding Controlled with Pressure -Treatment Response Procedure Tolerated Well -Offloading No -Debridement - Subq, 1st 20sq cm No #8 LT 2ND TOE -Time 11:35 -Correct Patient Yes -Correct Side, Site, Position Yes -Correct Procedure Yes -Procedure Performed Yes -Type of Procedure Debridement -Clinical Debridement Subcutaneous -Tissue Removed Subcutaneous -Post Debridement (cm) - Length 0.2 -Post Debridement (cm) - Width 0.5 -Post Debridement (cm) - Depth 0.1 -Total Square (Post) (cm) 0.10 -Area of Debridement (cm) - Length 0.2 -Area of Debridement (cm) - Width 0.5 -Total Square (Area) (cm) 0.10 -Tunneling No -Undermining/Tunneling No -Circular Undermining No -Wound/Ulcer Outcome Not Healed -Ulcer Cleansing Rinsed/ Irrigated with Saline -Foul Odor after Cleansing No -Bioengineered Tissue No -Bleeding Controlled with Pressure -Treatment Response Procedure Tolerated Well -Offloading No -Debridement - Subq, 1st 20sq cm Yes Pain Scale: 0-10 Numeric Is Patient Pain Free? Yes WC - Nurse 3 - General Ulcer D/C NN Start: 03/29/24 10:22 Freq: Status: Active Protocol: Activity Type Activity Date Activity User E-sign Co-sign Detail Recorded Client Recorded Date Recorded By Document 03/29/24 11:16 KW kl 03/29/24 11:18 KW Document 04/05/24 11:25 MT [id number] 04/05/24 11:37 MT Document 04/12/24 12:14 RB [id number] 04/12/24 12:16 RB 03/29/24 04/05/24 04/12/24 11:16 11:25 12:14 Wound Care Center Nurse 3 #10 LLE -Ulcer Cleansing Rinsed/ Irrigated with Saline -Primary Dressing Applied Aquacel Extra C Hydrogel ($) -Other Dressing BETADINE WITH betadine PT SILVERCEL -Primary Dressing Covered/Secured with Dry Gauze & Dry Gauze & Dry Gauze,Dry Roll Gauze, Roll Gauze, Gauze & Roll Secured with Secured with Gauze,Secured Tape Tape with Tape -Aquacel Extra 1 #9 RT MED ANKLE -Other Dressing BETADINE WITH hydrogel SILVERCEL -Primary Dressing Covered/Secured with Dry Gauze & Dry Gauze & Roll Gauze, Roll Gauze, Secured with Secured with Tape Tape #8 LT 2ND TOE -Other Dressing BETADINE WITH hydrogel PT SILVERCEL -Primary Dressing Covered/Secured with Dry Gauze Dry Gauze & Roll Gauze, Secured with Tape Right -Tubular Bandage Single Layer Single Layer -Size of Tubigrip Used Size F Size D -Size D ($) 1 -Size F ($) 1 -Other pt has tubigrip at home. Left -Tubular Bandage Single Layer Single Layer -Size of Tubigrip Used Size F Size D -Size D ($) 1 -Size F ($) 1 Treatment Response Procedure Tolerated Well Pain Scale: 0-10 Numeric Is Patient Pain Free? Yes Yes Yes WC - Visit Discharge Discharge Condition Stable Stable Ambulatory Status Ambulatory Ambulatory, Walker Transportation Private Auto Private Auto Medication Reconcilliation completed & No No provided to patient/care provider Clinical Summary of Care Provided Yes Yes Notes: pt has own tubigrip at home. Assessment/Plan Assessment/Plan (1) Other specified peripheral vascular diseases: CODE(S): I73.89 - Other specified peripheral vascular diseases PLAN: Exam performed. arterial status/venous status diminished vascular surgery recommmending continued local wound care today bilateral leg wounds and left 2nd toe wounds were debrided: Excisional debridement performed down to including level of subcutaneous tissue of all nonviable tissue using 5 mm dermal curette. Topical anesthesia was used. Patient tolerated procedure well. Hemostasis obtained with light compression pre and postdebridement measurements documented nursing notes. Today wounds redressed with hydrogel dry sterile dressing Tubigrip. Self-care dressing changes will be performed twice a week outside of wound care visits per the patient's . Patient has no weightbearing restrictions. Recommend left surgical shoe to the left lower extremity. Follow-up in 1 week. There are any delays in wound healing we will consider rereferral to vascular surgery. (2) Non-pressure chronic ulcer of right ankle with fat layer exposed: CODE(S): L97.312 - Non-pressure chronic ulcer of right ankle with fat layer exposed (3) Non-pressure chronic ulcer of other part of left foot with fat layer exposed: CODE(S): L97.522 - Non-pressure chronic ulcer of other part of left foot with fat layer exposed (4) Non-pressure chronic ulcer of left ankle with fat layer exposed: CODE(S): L97.322 - Non-pressure chronic ulcer of left ankle with fat layer exposed
== END 2024-04-23 23:59 | disposition home or self-care (01) ==
LOC: WC 11:00
PROVIDERS: PCP Pathology Anatomic Pathology & Clinical Pathology; Visit Provider Podiatrist
DX: E11.621 Type 2 diabetes mellitus with foot ulcer (principal); L97.822 Non-pressure chronic ulcer of other part of left lower leg with fat layer exposed; L97.312 Non-pressure chronic ulcer of right ankle with fat layer exposed; L97.522 Non-pressure chronic ulcer of other part of left foot with fat layer exposed; E11.51 Type 2 diabetes mellitus with diabetic peripheral angiopathy without gangrene; L40.9 Psoriasis, unspecified
CPT/HCPCS: 11042; 99214; G0463

== ENCOUNTER 2024-05-17 11:00 | Outpatient (RCR) | payer MEDICARE, SELFPAY ==
[2024-04-24 00:54] VITALS: BP 166/75; PULSE 71; RESP 18; TEMP 36
[2024-04-26 10:58] VITALS: BP 184/57; PULSE 69; RESP 18; TEMP 36.4
--- NOTE | 2024-04-26 11:41 | PCM.WC.PN ---
History of Present Illness Date of Service: 04/26/24 Chief Complaint: Non-healing ulcerations b/l feet and legs History of Wound: Pt has an almost 12 month history of non-healing ulcerations b/l feet and legs, now with healed ulcers on the legs, ankles, and feet. He denies N/V/F/C/D/fatigue/malaise. There has been no drainage. Denies malodor or purulent drainage, or redness. He has a history of hairy cell leukemia that is in remission, has undergone chemotherapy in the past. Has a history of psoriasis. Denies N/V/F/C. He has no other known auto-immune disorders with the exception of psoriasis. Objective Data Objective Data Vital Signs: Vital Signs Temp Pulse Resp BP 97.5 F L 69 18 184/57 H 04/26/24 10:58 04/26/24 10:58 04/26/24 10:58 04/26/24 10:58 Physical Exam Narrative Neurovascular status diminished bilateral lower extremity. Patient has reduced hammertoe left second digit full-thickness wound to dorsal left second digit down to second subcutaneous tissue. No acute signs of infection. Full-thickness wound right medial ankle. Full-thickness wound anterior left leg. No deep probing acute signs of infection. Skin bilaterally is atrophic. Const alert and oriented x3 Debridement Note Debridement Note Post-Debridement Measurements and Additional Note: Post-Debridement Measurements/Treatment [facility] Nurse 1 - General Ulcer Assessment Start: 04/26/24 10:57 Freq: Status: Active Protocol: .LOWEXT Activity Type Activity Date Activity User E-sign Co-sign Detail Recorded Client Recorded Date Recorded By Document 04/26/24 10:58 [id number] 04/26/24 11:17 04/26/24 10:58 - Today's Visit Information Type of service Follow-up Visit (Physician/WORKERS' COMPENSATION MAGISTRATE ) Arrival Mode Ambulatory Transfer Assistance Manual Patient Identification Verified (Name & Yes ) Patient Requires Transmission-Based No Precautions Vital Signs Temperature (97.8 F-99.1 F) 97.5 F L Temperature Source Temporal Pulse Rate (60-100) 69 Pulse Location Monitor Respiratory Rate (12-18) 18 Respiratory rate source Observation Blood Pressure (90/60-120/80) 184/57 H Blood Pressure Mean (mm Hg) 99 Source Monitor Position Semi-Fowlers Blood Pressure Location Right Arm History Since Last Visit- (Skip if this is Patient's initial visit) Have you changed medications since your No last visit? Any new allergies or adverse reactions No Had a fall/change in ADL's that may No increase risk of falls Signs or symptoms of abuse and/or No neglect since last visit Have you been in the hospital since your No last visit? Has dressing in place as prescribed Yes Has compression in place as prescribed Yes Has offloadiing in place as prescribed No Experienced any changes in pain level or No management Pain Scale: 0-10 Numeric Is Patient Pain Free? Yes WC - Nurse 1 - General Ulcer Measurement Start: 04/26/24 10:57 Freq: Status: Active Protocol: Activity Type Activity Date Activity User E-sign Co-sign Detail Recorded Client Recorded Date Recorded By Document 04/26/24 10:58 RB [id number] 04/26/24 11:17 RB 04/26/24 10:58 Wound Center Nurse 1 #10 LLE -Combined with other wound No -Current Size (cm) - Length 1.4 -Current Size (cm) - Width 1 -Current Size (cm) - Depth 0.3 -Total Square Cm 1.4 -Tunneling No -Undermining/Tunneling No -Circular Undermining No -Exudate Type Serosanguineous -Wound Margin Distinct, Outline Attached -Granulation Amt Medium (34-66%) -Granulation Quality [place] -Slough/Fibrin No -Necrosis Amt Medium (34-66%) -Necrotic Tissue Type Adherent Slough -Structure Exposed N/A -Texture (Oj-wound Skin Appearance) Assessed -Moisture (Jo-wound Skin Appearance) Assessed,Dry/ Scaly -Color (Jo-wound Skin Appearance) Assessed -Temperature (Jo-wound Skin No Abnormality Appearance) (Pt Warm) -Ulcer Cleansing Wound Cleanser -Foul Odor after Cleansing No -Anesthetic Used 5% Lidocaine Gel #9 RT MED ANKLE -Combined with other wound No -Current Size (cm) - Length 0.7 -Current Size (cm) - Width 0.8 -Current Size (cm) - Depth 0.1 -Total Square Cm 0.56 -Tunneling No -Undermining/Tunneling No -Circular Undermining No -Exudate Amt Large -Exudate Type Serosanguineous -Wound Margin Distinct, Outline Attached -Granulation Amt Medium (34-66%) -Granulation Quality [place] -Slough/Fibrin Yes -Necrosis Amt Medium (34-66%) -Necrotic Tissue Type Adherent Slough -Structure Exposed N/A -Texture (Jo-wound Skin Appearance) Assessed -Moisture (Jo-wound Skin Appearance) Dry/Scaly -Color (Jo-wound Skin Appearance) Assessed -Temperature (Jo-wound Skin No Abnormality Appearance) (Pt Warm) -Tenderness on Palpation (Jo-wound No Skin Appearance) -Ulcer Cleansing Wound Cleanser -Foul Odor after Cleansing No -Anesthetic Used 4% Lidocaine Solution #8 LT 2ND TOE -Combined with other wound No -Current Size (cm) - Length 0.5 -Current Size (cm) - Width 0.9 -Current Size (cm) - Depth 0.1 -Total Square Cm 0.45 -Exudate Amt Large -Exudate Type Serosanguineous -Wound Margin Distinct, Outline Attached -Granulation Amt Medium (34-66%) -Granulation Quality [place] -Slough/Fibrin Yes -Necrosis Amt Medium (34-66%) -Necrotic Tissue Type Adherent Slough -Structure Exposed N/A -Texture (Jo-wound Skin Appearance) Assessed -Moisture (Jo-wound Skin Appearance) Dry/Scaly -Color (Jo-wound Skin Appearance) Assessed -Temperature (Jo-wound Skin No Abnormality Appearance) (Pt Warm) -Tenderness on Palpation (Jo-wound No Skin Appearance) -Ulcer Cleansing Wound Cleanser -Foul Odor after Cleansing No -Anesthetic Used 5% Lidocaine Gel Lower Limb Edema Present Yes Right Calf (cm) 27.5 Right Ankle (cm) 20 Left Calf (cm) 27.7 Left Ankle (cm) 20 WC - Nurse 2 - General Ulcer CM Notes Start: 04/26/24 10:57 Freq: Status: Active Protocol: Activity Type Activity Date Activity User E-sign Co-sign Detail Recorded Client Recorded Date Recorded By Document 04/26/24 11:38 [email or web address] [id number] 04/26/24 11:40 SANDHYA 04/26/24 11:38 Wound Center Nurse 2 #10 LLE -Time 11:39 -Correct Patient Yes -Correct Side, Site, Position Yes -Correct Procedure Yes -Procedure Performed Yes -Type of Procedure Debridement -Clinical Debridement Subcutaneous -Tissue Removed Subcutaneous -Post Debridement (cm) - Length 1.0 -Post Debridement (cm) - Width 1.1 -Post Debridement (cm) - Depth 0.3 -Total Square (Post) (cm) 1.10 -Area of Debridement (cm) - Length 1.0 -Area of Debridement (cm) - Width 1.1 -Total Square (Area) (cm) 1.10 -Tunneling No -Undermining/Tunneling No -Circular Undermining No -Wound/Ulcer Outcome Not Healed -Ulcer Cleansing Rinsed/ Irrigated with Saline -Foul Odor after Cleansing No -Bioengineered Tissue No -Bleeding Controlled with Pressure -Treatment Response Procedure Tolerated Well -Offloading No -Debridement - Subq, 1st 20sq cm No #9 RT MED ANKLE -Time 11:39 -Correct Patient Yes -Correct Side, Site, Position Yes -Correct Procedure Yes -Procedure Performed Yes -Type of Procedure Debridement -Clinical Debridement Subcutaneous -Tissue Removed Subcutaneous -Post Debridement (cm) - Length 0.5 -Post Debridement (cm) - Width 0.8 -Post Debridement (cm) - Depth 0.3 -Total Square (Post) (cm) 0.40 -Area of Debridement (cm) - Length 0.5 -Area of Debridement (cm) - Width 0.8 -Total Square (Area) (cm) 0.40 -Tunneling No -Undermining/Tunneling No -Circular Undermining No -Wound/Ulcer Outcome Not Healed -Ulcer Cleansing Rinsed/ Irrigated with Saline -Foul Odor after Cleansing No -Bioengineered Tissue No -Bleeding Controlled with Pressure -Treatment Response Procedure Tolerated Well -Offloading No -Debridement - Subq, 1st 20sq cm Yes #8 LT 2ND TOE -Time 11:40 -Correct Patient Yes -Correct Side, Site, Position Yes -Correct Procedure Yes -Procedure Performed Yes -Type of Procedure Debridement -Clinical Debridement Subcutaneous -Tissue Removed Subcutaneous -Post Debridement (cm) - Length 0.4 -Post Debridement (cm) - Width 0.1 -Post Debridement (cm) - Depth 0.2 -Total Square (Post) (cm) 0.04 -Area of Debridement (cm) - Length 0.4 -Area of Debridement (cm) - Width 0.1 -Total Square (Area) (cm) 0.04 -Tunneling No -Undermining/Tunneling No -Circular Undermining No -Wound/Ulcer Outcome Not Healed -Ulcer Cleansing Rinsed/ Irrigated with Saline -Foul Odor after Cleansing No -Bioengineered Tissue No -Bleeding Controlled with Pressure -Treatment Response Procedure Tolerated Well -Offloading No -Debridement - Subq, 1st 20sq cm No Pain Scale: 0-10 Numeric Is Patient Pain Free? Yes Assessment/Plan Assessment/Plan (1) Other specified peripheral vascular diseases: CODE(S): I73.89 - Other specified peripheral vascular diseases PLAN: Exam performed. arterial status/venous status diminished vascular surgery recommmending continued local wound care today bilateral leg wounds and left 2nd toe wounds were debrided: Excisional debridement performed down to including level of subcutaneous tissue of all nonviable tissue using 5 mm using the [employer] debrider. Topical anesthesia was used. Patient tolerated procedure well. Hemostasis obtained with light compression pre and postdebridement measurements documented nursing notes. Today wounds redressed with hydrogel dry sterile dressing Tubigrip. Self-care dressing changes will be performed twice a week outside of wound care visits per the patient's . Patient has no weightbearing restrictions. Recommend left surgical shoe to the left lower extremity. Follow-up in 1 week. There are any delays in wound healing we will consider rereferral to vascular surgery. (2) Non-pressure chronic ulcer of right ankle with fat layer exposed: CODE(S): L97.312 - Non-pressure chronic ulcer of right ankle with fat layer exposed (3) Non-pressure chronic ulcer of other part of left foot with fat layer exposed: CODE(S): L97.522 - Non-pressure chronic ulcer of other part of left foot with fat layer exposed (4) Non-pressure chronic ulcer of left ankle with fat layer exposed: CODE(S): L97.322 - Non-pressure chronic ulcer of left ankle with fat layer exposed
[2024-05-03 11:07] VITALS: BP 132/46; PULSE 61; RESP 12; TEMP 36.1
--- NOTE | 2024-05-03 11:52 | PN.PCM_ITS ---
History of Present Illness Date of Service: 05/03/24 Chief Complaint: Non-healing ulcerations b/l feet and legs History of Wound: Pt has an almost 12 month history of non-healing ulcerations b/l feet and legs, now with healed ulcers on the legs, ankles, and feet. He denies N/V/F/C/D/fatigue/malaise. There has been no drainage. Denies malodor or purulent drainage, or redness. He has a history of hairy cell leukemia that is in remission, has undergone chemotherapy in the past. Has a history of p soriasis. Denies N/V/F/C. He has no other known auto-immune disorders with the exception of psoriasis. Objective Data Objective Data Vital Signs: Vital Signs Temp Pulse Resp BP O2 Del Method 97.0 F L 61 12 132/46 H Room Air 05/03/24 11:07 05/03/24 11:07 05/03/24 11:07 05/03/24 11:07 05/03/24 11:07 Oxygen Delivery Method Room Air Physical Exam Narrative Neurovascular status diminished bilateral lower extremity. Patient has reduced hammertoe left second digit full-thickness wound to dorsal left second digit down to second subcutaneous tissue. No acute signs of infection. Full-thickness wound right medial ankle. Full-thickness wound anterior left leg. No deep probing acute signs of infection. Skin bilaterally is atrophic. Const alert and oriented x3 Debridement Note Debridement Note Post-Debridement Measurements and Additional Note: Post-Debridement Measurements/Treatment - Nurse 1 - General Ulcer Assessment Start: 04/26/24 10:57 Freq: Status: Active Protocol: PATY Activity Type Activity Date Activity User E-sign Co-sign Detail Recorded Client Recorded Date Recorded By Document 04/26/24 10:58 RB [id number] 04/26/24 11:17 RB Document 05/03/24 11:07 ML [id number] 05/03/24 11:21 ML 04/26/24 05/03/24 10:58 11:07 - Today's Visit Information Type of service Follow-up Visit Follow-up Visit (Physician/SURFACE WATER MANAGER (Physician/SURFACE WATER MANAGER ) ) Arrival Mode Ambulatory Ambulatory, Walker Transfer Assistance Manual Patient Identification Verified (Name & Yes Yes ) Patient Requires Transmission-Based No No Precautions Finger Stick Blood Sugar(mg/dl) (if 243 indicated): Blood Sugar Stated by Patient Vital Signs Temperature (97.8 F-99.1 F) 97.5 F L 97.0 F L Temperature Source Temporal Temporal Pulse Rate (60-100) 69 61 Pulse Location Monitor Monitor Respiratory Rate (12-18) 18 12 Respiratory rate source Observation Observation Oxygen Delivery Method Room Air Blood Pressure (90/60-120/80) 184/57 H 132/46 H Blood Pressure Mean (mm Hg) 99 74 Source Monitor Monitor Position Semi-Fowlers Blood Pressure Location Right Arm History Since Last Visit- (Skip if this is Patient's initial visit) Have you changed medications since your No No last visit? Any new allergies or adverse reactions No No Had a fall/change in ADL's that may No No increase risk of falls Signs or symptoms of abuse and/or No No neglect since last visit Have you been in the hospital since your No last visit? Has dressing in place as prescribed Yes Yes Has compression in place as prescribed Yes Yes Has offloadiing in place as prescribed No Experienced any changes in pain level or No management Left Footwear Regular Shoe Right Footwear Regular Shoe Pain Scale: 0-10 Numeric Is Patient Pain Free? Yes Yes WC - Nurse 1 - General Ulcer Measurement Start: 04/26/24 10:57 Freq: Status: Active Protocol: Activity Type Activity Date Activity User E-sign Co-sign Detail Recorded Client Recorded Date Recorded By Document 04/26/24 10:58 RB [id number] 04/26/24 11:17 RB Document 05/03/24 11:07 ML [id number] 05/03/24 11:21 ML 04/26/24 05/03/24 10:58 11:07 Wound Center Nurse 1 #10 LLE -Combined with other wound No -Combined with (Name of Wound-Exactly 1.3 as it is documented) -Current Size (cm) - Length 1.4 1.0 -Current Size (cm) - Width 1 0.3 -Current Size (cm) - Depth 0.3 -Total Square Cm 1.4 0.30 -Tunneling No -Undermining/Tunneling No -Circular Undermining No -Exudate Amt Medium -Exudate Type Serosanguineous Serosanguineous -Wound Margin Distinct, Distinct, Outline Outline Attached Attached -Granulation Amt Medium (34-66%) Small (1-33%) -Granulation Quality [place] -Slough/Fibrin No Yes -Necrosis Amt Medium (34-66%) -Necrotic Tissue Type Adherent Slough -Structure Exposed N/A -Texture (Jo-wound Skin Appearance) Assessed Assessed -Moisture (Jo-wound Skin Appearance) Assessed,Dry/ Scaly -Color (Jo-wound Skin Appearance) Assessed Assessed -Temperature (Jo-wound Skin No Abnormality No Abnormality Appearance) (Pt Warm) (Pt Warm) -Ulcer Cleansing Wound Cleanser Rinsed/ Irrigated with Saline -Foul Odor after Cleansing No No -Anesthetic Used 5% Lidocaine 5% Lidocaine Gel Gel #9 RT MED ANKLE -Combined with other wound No -Combined with (Name of Wound-Exactly 1.5 as it is documented) -Current Size (cm) - Length 0.7 2 -Current Size (cm) - Width 0.8 0.2 -Current Size (cm) - Depth 0.1 -Total Square Cm 0.56 0.4 -Tunneling No -Undermining/Tunneling No -Circular Undermining No -Exudate Amt Large Medium -Exudate Type Serosanguineous Serosanguineous -Wound Margin Distinct, Distinct, Outline Outline Attached Attached -Granulation Amt Medium (34-66%) Medium (34-66%) -Granulation Quality [place] -Slough/Fibrin Yes -Necrosis Amt Medium (34-66%) -Necrotic Tissue Type Adherent Slough Adherent Slough -Structure Exposed N/A -Texture (Jo-wound Skin Appearance) Assessed Assessed -Moisture (Jo-wound Skin Appearance) Dry/Scaly -Color (Jo-wound Skin Appearance) Assessed Assessed -Temperature (Jo-wound Skin No Abnormality No Abnormality Appearance) (Pt Warm) (Pt Warm) -Tenderness on Palpation (Jo-wound No No Skin Appearance) -Ulcer Cleansing Wound Cleanser Rinsed/ Irrigated with Saline -Foul Odor after Cleansing No -Anesthetic Used 4% Lidocaine 5% Lidocaine Solution Gel #8 LT 2ND TOE -Combined with other wound No -Current Size (cm) - Length 0.5 1 -Current Size (cm) - Width 0.9 0.2 -Current Size (cm) - Depth 0.1 0.3 -Total Square Cm 0.45 0.2 -Exudate Amt Large -Exudate Type Serosanguineous Serosanguineous -Wound Margin Distinct, Distinct, Outline Outline Attached Attached -Granulation Amt Medium (34-66%) Medium (34-66%) -Granulation Quality [place] -Slough/Fibrin Yes -Necrosis Amt Medium (34-66%) Medium (34-66%) -Necrotic Tissue Type Adherent Slough Adherent Slough -Structure Exposed N/A -Texture (Jo-wound Skin Appearance) Assessed Not Assessed -Moisture (Jo-wound Skin Appearance) Dry/Scaly -Color (Jo-wound Skin Appearance) Assessed Not Assessed -Temperature (Jo-wound Skin No Abnormality Appearance) (Pt Warm) -Tenderness on Palpation (Jo-wound No Yes Skin Appearance) -Ulcer Cleansing Wound Cleanser Rinsed/ Irrigated with Saline -Foul Odor after Cleansing No -Anesthetic Used 5% Lidocaine 5% Lidocaine Gel Gel Lower Limb Edema Present Yes Right Calf (cm) 27.5 Right Ankle (cm) 20 Left Calf (cm) 27.7 Left Ankle (cm) 20 WC - Nurse 2 - General Ulcer CM Notes Start: 04/26/24 10:57 Freq: Status: Active Protocol: Activity Type Activity Date Activity User E-sign Co-sign Detail Recorded Client Recorded Date Recorded By Document 04/26/24 11:38 [id number] 04/26/24 11:40 Document 05/03/24 11:33 [id number] 05/03/24 11:35 04/26/24 05/03/24 11:38 11:33 Wound Center Nurse 2 #10 LLE -Time 11:39 -Correct Patient Yes No -Correct Side, Site, Position Yes No -Correct Procedure Yes No -Procedure Performed Yes No -Type of Procedure Debridement -Clinical Debridement Subcutaneous -Tissue Removed Subcutaneous -Post Debridement (cm) - Length 1.0 -Post Debridement (cm) - Width 1.1 -Post Debridement (cm) - Depth 0.3 -Total Square (Post) (cm) 1.10 -Area of Debridement (cm) - Length 1.0 -Area of Debridement (cm) - Width 1.1 -Total Square (Area) (cm) 1.10 -Tunneling No -Undermining/Tunneling No -Circular Undermining No -Wound/Ulcer Outcome Not Healed Not Healed -Ulcer Cleansing Rinsed/ Irrigated with Saline -Foul Odor after Cleansing No -Bioengineered Tissue No -Bleeding Controlled with Pressure -Treatment Response Procedure Tolerated Well -Offloading No -Debridement - Subq, 1st 20sq cm No #9 RT MED ANKLE -Time 11:39 -Correct Patient Yes No -Correct Side, Site, Position Yes No -Correct Procedure Yes No -Procedure Performed Yes No -Type of Procedure Debridement -Clinical Debridement Subcutaneous -Tissue Removed Subcutaneous -Post Debridement (cm) - Length 0.5 -Post Debridement (cm) - Width 0.8 -Post Debridement (cm) - Depth 0.3 -Total Square (Post) (cm) 0.40 -Area of Debridement (cm) - Length 0.5 -Area of Debridement (cm) - Width 0.8 -Total Square (Area) (cm) 0.40 -Tunneling No -Undermining/Tunneling No -Circular Undermining No -Wound/Ulcer Outcome Not Healed Not Healed -Ulcer Cleansing Rinsed/ Irrigated with Saline -Foul Odor after Cleansing No -Bioengineered Tissue No -Bleeding Controlled with Pressure -Treatment Response Procedure Tolerated Well -Offloading No -Debridement - Subq, 1st 20sq cm Yes #8 LT 2ND TOE -Time 11:40 -Correct Patient Yes No -Correct Side, Site, Position Yes No -Correct Procedure Yes No -Procedure Performed Yes No -Type of Procedure Debridement -Clinical Debridement Subcutaneous -Tissue Removed Subcutaneous -Post Debridement (cm) - Length 0.4 -Post Debridement (cm) - Width 0.1 -Post Debridement (cm) - Depth 0.2 -Total Square (Post) (cm) 0.04 -Area of Debridement (cm) - Length 0.4 -Area of Debridement (cm) - Width 0.1 -Total Square (Area) (cm) 0.04 -Tunneling No -Undermining/Tunneling No -Circular Undermining No -Wound/Ulcer Outcome Not Healed Not Healed -Ulcer Cleansing Rinsed/ Irrigated with Saline -Foul Odor after Cleansing No -Bioengineered Tissue No -Bleeding Controlled with Pressure -Treatment Response Procedure Tolerated Well -Offloading No -Debridement - Subq, 1st 20sq cm No Pain Scale: 0-10 Numeric Is Patient Pain Free? Yes Yes WC - Nurse 3 - General Ulcer D/C NN Start: 04/26/24 10:57 Freq: Status: Active Protocol: Activity Type Activity Date Activity User E-sign Co-sign Detail Recorded Client Recorded Date Recorded By Document 04/26/24 12:03 [email or web address] [id number] 04/26/24 12:04 KW 04/26/24 12:03 Wound Care Center Nurse 3 #10 LLE -Other Dressing hydrogel -Primary Dressing Covered/Secured with Dry Gauze & Roll Gauze, Secured with Tape #9 RT MED ANKLE -Other Dressing hydrogel -Primary Dressing Covered/Secured with Dry Gauze & Roll Gauze, Secured with Tape #8 LT 2ND TOE -Other Dressing betadine -Primary Dressing Covered/Secured with Dry Gauze, Secured with Tape Right -Tubular Bandage Single Layer -Size of Tubigrip Used Size D -Size D ($) 1 Left -Tubular Bandage Single Layer -Size of Tubigrip Used Size D -Size D ($) 1 Pain Scale: 0-10 Numeric Is Patient Pain Free? Yes Assessment/Plan Assessment/Plan (1) Other specified peripheral vascular diseases: CODE(S): I73.89 - Other specified peripheral vascular diseases PLAN: Exam performed. arterial status/venous status diminished vascular surgery recommmending continued local wound care Today wounds are increased in size; therefore, no debridement was performed We will plan for daily Betadine dressing changes with light compression using Tubigrip Will plan for follow-up with vascular surgery to see if there is anything they can do to improve blood flow as debridement is close decline and wounds patient is care is complicated by significant peripheral arterial disease and chronic kidney disease. 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
[2024-05-17 11:36] VITALS: BP 139/60; PULSE 62; RESP 18; TEMP 35.7
--- NOTE | 2024-05-17 11:55 | PN.PCM_ITS ---
History of Present Illness Date of Service: 05/17/24 Chief Complaint: Non-healing ulcerations b/l feet and legs History of Wound: Pt has an almost 12 month history of non-healing ulcerations b/l feet and legs, now with healed ulcers on the legs, ankles, and feet. He denies N/V/F/C/D/fatigue/malaise. There has been no drainage. Denies malodor or purulent drainage, or redness. He has a history of hairy cell leukemia that is in remission, has undergone chemotherapy in the past. Has a history of p soriasis. Denies N/V/F/C. He has no other known auto-immune disorders with the exception of psoriasis. Objective Data Objective Data Vital Signs: Vital Signs Temp Pulse Resp BP O2 Del Method 96.3 F L 62 18 139/60 H Room Air 05/17/24 11:36 05/17/24 11:36 05/17/24 11:36 05/17/24 11:36 05/03/24 11:07 Oxygen Delivery Method Room Air Physical Exam Narrative Neurovascular status diminished bilateral lower extremity. Patient has reduced hammertoe left second digit full-thickness wound to dorsal left second digit down to second subcutaneous tissue. No acute signs of infection. Full-thickness wound right medial ankle. Full-thickness wound anterior left leg. No deep probing acute signs of infection. Skin bilaterally is atrophic. Const alert and oriented x3 Debridement Note Debridement Note Post-Debridement Measurements and Additional Note: Post-Debridement Measurements/Treatment - Nurse 1 - General Ulcer Assessment Start: 04/26/24 10:57 Freq: Status: Active Protocol: PATY Activity Type Activity Date Activity User E-sign Co-sign Detail Recorded Client Recorded Date Recorded By Document 04/26/24 10:58 RB [id number] 04/26/24 11:17 RB Document 05/03/24 11:07 ML [id number] 05/03/24 11:21 ML Document 05/17/24 11:36 RB [id number] 05/17/24 11:43 RB 04/26/24 05/03/24 05/17/24 10:58 11:07 11:36 - Today's Visit Information Type of service Follow-up Visit Follow-up Visit Follow-up Visit (Physician/MISSING PERSONS INVESTIGATOR (Physician/MISSING PERSONS INVESTIGATOR (Physician/MISSING PERSONS INVESTIGATOR ) ) ) Arrival Mode Ambulatory Ambulatory, Ambulatory, Walker Walker Transfer Assistance Manual Manual Patient Identification Verified (Name & Yes Yes Yes ) Patient Requires Transmission-Based No No No Precautions Finger Stick Blood Sugar(mg/dl) (if 243 indicated): Blood Sugar Stated by Patient Vital Signs Temperature (97.8 F-99.1 F) 97.5 F L 97.0 F L 96.3 F L Temperature Source Temporal Temporal Temporal Pulse Rate (60-100) 69 61 62 Pulse Location Monitor Monitor Monitor Respiratory Rate (12-18) 18 12 18 Respiratory rate source Observation Observation Observation Oxygen Delivery Method Room Air Blood Pressure (90/60-120/80) 184/57 H 132/46 H 139/60 H Blood Pressure Mean (mm Hg) 99 74 86 Source Monitor Monitor Monitor Position Semi-Fowlers Semi-Fowlers Blood Pressure Location Right Arm Left Arm History Since Last Visit- (Skip if this is Patient's initial visit) Have you changed medications since your No No No last visit? Any new allergies or adverse reactions No No No Had a fall/change in ADL's that may No No No increase risk of falls Signs or symptoms of abuse and/or No No No neglect since last visit Have you been in the hospital since your No No last visit? Has dressing in place as prescribed Yes Yes Yes Has compression in place as prescribed Yes Yes Yes Has offloadiing in place as prescribed No No Experienced any changes in pain level or No No management Left Footwear Regular Shoe Right Footwear Regular Shoe Pain Scale: 0-10 Numeric Is Patient Pain Free? Yes Yes Yes WC - Nurse 1 - General Ulcer Measurement Start: 04/26/24 10:57 Freq: Status: Active Protocol: Activity Type Activity Date Activity User E-sign Co-sign Detail Recorded Client Recorded Date Recorded By Document 04/26/24 10:58 RB [id number] 04/26/24 11:17 RB Document 05/03/24 11:07 ML [id number] 05/03/24 11:21 ML Document 05/17/24 11:36 RB [id number] 05/17/24 11:43 RB 04/26/24 05/03/24 05/17/24 10:58 11:07 11:36 Wound Center Nurse 1 #10 LLE -Combined with other wound No No -Combined with (Name of Wound-Exactly 1.3 as it is documented) -Current Size (cm) - Length 1.4 1.0 1.6 -Current Size (cm) - Width 1 0.3 1.6 -Current Size (cm) - Depth 0.3 0.2 -Total Square Cm 1.4 0.30 2.56 -Tunneling No No -Undermining/Tunneling No No -Circular Undermining No No -Exudate Amt Medium Small -Exudate Type Serosanguineous Serosanguineous Serosanguineous -Wound Margin Distinct, Distinct, Distinct, Outline Outline Outline Attached Attached Attached -Granulation Amt Medium (34-66%) Small (1-33%) Medium (34-66%) -Granulation Quality [place] -Slough/Fibrin No Yes Yes -Necrosis Amt Medium (34-66%) Medium (34-66%) -Necrotic Tissue Type Adherent Slough Adherent Slough -Structure Exposed N/A N/A -Texture (Jo-wound Skin Appearance) Assessed Assessed Assessed -Moisture (Jo-wound Skin Appearance) Assessed,Dry/ Dry/Scaly Scaly -Color (Jo-wound Skin Appearance) Assessed Assessed Assessed -Temperature (Jo-wound Skin No Abnormality No Abnormality No Abnormality Appearance) (Pt Warm) (Pt Warm) (Pt Warm) -Tenderness on Palpation (Jo-wound No Skin Appearance) -Ulcer Cleansing Wound Cleanser Rinsed/ Wound Cleanser Irrigated with Saline -Foul Odor after Cleansing No No No -Anesthetic Used 5% Lidocaine 5% Lidocaine 5% Lidocaine Gel Gel Gel #9 RT MED ANKLE -Combined with other wound No No -Combined with (Name of Wound-Exactly 1.5 as it is documented) -Current Size (cm) - Length 0.7 2 0.5 -Current Size (cm) - Width 0.8 0.2 0.5 -Current Size (cm) - Depth 0.1 0.2 -Total Square Cm 0.56 0.4 0.25 -Tunneling No No -Undermining/Tunneling No No -Circular Undermining No No -Exudate Amt Large Medium Medium -Exudate Type Serosanguineous Serosanguineous Serosanguineous -Wound Margin Distinct, Distinct, Distinct, Outline Outline Outline Attached Attached Attached -Granulation Amt Medium (34-66%) Medium (34-66%) Medium (34-66%) -Granulation Quality [place] -Slough/Fibrin Yes Yes -Necrosis Amt Medium (34-66%) Medium (34-66%) -Necrotic Tissue Type Adherent Slough Adherent Slough Adherent Slough -Structure Exposed N/A N/A -Texture (Jo-wound Skin Appearance) Assessed Assessed Assessed -Moisture (Jo-wound Skin Appearance) Dry/Scaly Dry/Scaly -Color (Jo-wound Skin Appearance) Assessed Assessed Assessed -Temperature (Jo-wound Skin No Abnormality No Abnormality No Abnormality Appearance) (Pt Warm) (Pt Warm) (Pt Warm) -Tenderness on Palpation (Jo-wound No No No Skin Appearance) -Ulcer Cleansing Wound Cleanser Rinsed/ Rinsed/ Irrigated with Irrigated with Saline Saline -Foul Odor after Cleansing No No -Anesthetic Used 4% Lidocaine 5% Lidocaine 5% Lidocaine Solution Gel Gel #8 LT 2ND TOE -Combined with other wound No No -Current Size (cm) - Length 0.5 1 0.2 -Current Size (cm) - Width 0.9 0.2 1 -Current Size (cm) - Depth 0.1 0.3 0.1 -Total Square Cm 0.45 0.2 0.2 -Tunneling No -Undermining/Tunneling No -Circular Undermining No -Exudate Amt Large Medium -Exudate Type Serosanguineous Serosanguineous Serosanguineous -Wound Margin Distinct, Distinct, Distinct, Outline Outline Outline Attached Attached Attached -Granulation Amt Medium (34-66%) Medium (34-66%) Medium (34-66%) -Granulation Quality [place] -Slough/Fibrin Yes Yes -Necrosis Amt Medium (34-66%) Medium (34-66%) Medium (34-66%) -Necrotic Tissue Type Adherent Slough Adherent Slough Adherent Slough -Structure Exposed N/A N/A -Texture (Jo-wound Skin Appearance) Assessed Not Assessed Assessed -Moisture (Jo-wound Skin Appearance) Dry/Scaly Dry/Scaly -Color (Jo-wound Skin Appearance) Assessed Not Assessed Assessed -Temperature (Jo-wound Skin No Abnormality No Abnormality Appearance) (Pt Warm) (Pt Warm) -Tenderness on Palpation (Jo-wound No Yes No Skin Appearance) -Ulcer Cleansing Wound Cleanser Rinsed/ Wound Cleanser Irrigated with Saline -Foul Odor after Cleansing No No -Anesthetic Used 5% Lidocaine 5% Lidocaine 5% Lidocaine Gel Gel Gel Lower Limb Edema Present Yes Right Calf (cm) 27.5 Right Ankle (cm) 20 Left Calf (cm) 27.7 Left Ankle (cm) 20 - Nurse 2 - General Ulcer CM Notes Start: 04/26/24 10:57 Freq: Status: Active Protocol: Activity Type Activity Date Activity User E-sign Co-sign Detail Recorded Client Recorded Date Recorded By Document 04/26/24 11:38 [id number] 04/26/24 11:40 Document 05/03/24 11:33 [id number] 05/03/24 11:35 Document 05/17/24 11:50 [id number] 05/17/24 11:51 04/26/24 05/03/24 05/17/24 11:38 11:33 11:50 Wound Center Nurse 2 #10 LLE -Time 11:39 -Correct Patient Yes No No -Correct Side, Site, Position Yes No No -Correct Procedure Yes No No -Procedure Performed Yes No No -Type of Procedure Debridement -Clinical Debridement Subcutaneous -Tissue Removed Subcutaneous -Post Debridement (cm) - Length 1.0 -Post Debridement (cm) - Width 1.1 -Post Debridement (cm) - Depth 0.3 -Total Square (Post) (cm) 1.10 -Area of Debridement (cm) - Length 1.0 -Area of Debridement (cm) - Width 1.1 -Total Square (Area) (cm) 1.10 -Tunneling No -Undermining/Tunneling No -Circular Undermining No -Wound/Ulcer Outcome Not Healed Not Healed Not Healed -Ulcer Cleansing Rinsed/ Irrigated with Saline -Foul Odor after Cleansing No -Bioengineered Tissue No -Bleeding Controlled with Pressure -Treatment Response Procedure Tolerated Well -Offloading No -Debridement - Subq, 1st 20sq cm No #9 RT MED ANKLE -Time 11:39 -Correct Patient Yes No No -Correct Side, Site, Position Yes No No -Correct Procedure Yes No No -Procedure Performed Yes No No -Type of Procedure Debridement -Clinical Debridement Subcutaneous -Tissue Removed Subcutaneous -Post Debridement (cm) - Length 0.5 -Post Debridement (cm) - Width 0.8 -Post Debridement (cm) - Depth 0.3 -Total Square (Post) (cm) 0.40 -Area of Debridement (cm) - Length 0.5 -Area of Debridement (cm) - Width 0.8 -Total Square (Area) (cm) 0.40 -Tunneling No -Undermining/Tunneling No -Circular Undermining No -Wound/Ulcer Outcome Not Healed Not Healed Not Healed -Ulcer Cleansing Rinsed/ Irrigated with Saline -Foul Odor after Cleansing No -Bioengineered Tissue No -Bleeding Controlled with Pressure -Treatment Response Procedure Tolerated Well -Offloading No -Debridement - Subq, 1st 20sq cm Yes #8 LT 2ND TOE -Time 11:40 -Correct Patient Yes No No -Correct Side, Site, Position Yes No No -Correct Procedure Yes No No -Procedure Performed Yes No No -Type of Procedure Debridement -Clinical Debridement Subcutaneous -Tissue Removed Subcutaneous -Post Debridement (cm) - Length 0.4 -Post Debridement (cm) - Width 0.1 -Post Debridement (cm) - Depth 0.2 -Total Square (Post) (cm) 0.04 -Area of Debridement (cm) - Length 0.4 -Area of Debridement (cm) - Width 0.1 -Total Square (Area) (cm) 0.04 -Tunneling No -Undermining/Tunneling No -Circular Undermining No -Wound/Ulcer Outcome Not Healed Not Healed -Ulcer Cleansing Rinsed/ Irrigated with Saline -Foul Odor after Cleansing No -Bioengineered Tissue No -Bleeding Controlled with Pressure -Treatment Response Procedure Tolerated Well -Offloading No -Debridement - Subq, 1st 20sq cm No Pain Scale: 0-10 Numeric Is Patient Pain Free? Yes Yes Yes WC - Nurse 3 - General Ulcer D/C NN Start: 04/26/24 10:57 Freq: Status: Active Protocol: Activity Type Activity Date Activity User E-sign Co-sign Detail Recorded Client Recorded Date Recorded By Document 04/26/24 12:03 KW [id number] 04/26/24 12:04 KW Document 05/03/24 11:54 JF [id number] 05/03/24 11:56 JF 04/26/24 05/03/24 12:03 11:54 Wound Care Center Nurse 3 #10 LLE -Ulcer Cleansing Rinsed/ Irrigated with Saline -Other Dressing hydrogel betadine -Primary Dressing Covered/Secured with Dry Gauze & Dry Gauze, Roll Gauze, Secured with Secured with Tape Tape #9 RT MED ANKLE -Ulcer Cleansing Rinsed/ Irrigated with Saline -Foul Odor after Cleansing No -Other Dressing hydrogel -Primary Dressing Covered/Secured with Dry Gauze & Dry Gauze, Roll Gauze, Secured with Secured with Tape Tape #8 LT 2ND TOE -Ulcer Cleansing Rinsed/ Irrigated with Saline -Foul Odor after Cleansing No -Other Dressing betadine betadine -Primary Dressing Covered/Secured with Dry Gauze, Dry Gauze, Secured with Secured with Tape Tape Right -Tubular Bandage Single Layer Single Layer -Size of Tubigrip Used Size D Size D -Size D ($) 1 1 Left -Tubular Bandage Single Layer Single Layer -Size of Tubigrip Used Size D Size D -Size D ($) 1 1 Pain Scale: 0-10 Numeric Is Patient Pain Free? Yes Yes WC - Visit Discharge Discharge Condition Stable Ambulatory Status Ambulatory, Wheelchair Transportation Private Auto Medication Reconcilliation completed & Yes provided to patient/care provider Clinical Summary of Care Provided Yes Assessment/Plan Assessment/Plan (1) Other specified peripheral vascular diseases: CODE(S): I73.89 - Other specified peripheral vascular diseases PLAN: Exam performed. arterial status/venous status diminished vascular surgery recommmending continued local wound care Today wounds are increased in size; therefore, no debridement was performed We will plan for daily Betadine dressing changes with light compression using Tubigrip Will plan for follow-up with vascular surgery to see if there is anything they can do to improve blood flow as debridement is close decline and wounds patient is care is complicated by significant peripheral arterial disease and chronic kidney disease. 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
== END 2024-05-21 23:59 | disposition home or self-care (01) ==
LOC: WC 11:00
PROVIDERS: PCP Pathology Anatomic Pathology & Clinical Pathology; Referring Provider Podiatrist; Visit Provider Podiatrist
DX: I73.89 Other specified peripheral vascular diseases (principal); L97.322 Non-pressure chronic ulcer of left ankle with fat layer exposed; L97.522 Non-pressure chronic ulcer of other part of left foot with fat layer exposed; L97.312 Non-pressure chronic ulcer of right ankle with fat layer exposed; L40.9 Psoriasis, unspecified
CPT/HCPCS: 11042; 99214; G0463

== ENCOUNTER 2024-05-18 16:27 | Inpatient (IN) | payer MEDICARE, SELFPAY ==
[2024-05-17 07:38] VITALS: BMI 28.5
[2024-05-18] VITALS (21 sets, daily range): BP systolic 84–121; BP diastolic 29–49; PULSE 62–71; RESP 14–21; TEMP 36.2–36.8; O2SAT 90–100; BMI 25.7
[2024-05-18 10:03] LABS: Absolute Lymphocyte Count 1.58 X10^3/uL (0.83-4.51); Absolute Neutrophil Count 3.3 X10^3/uL (2.0-7.7); Basophil# 0.03 X10^3/uL; Basophil% 0.5 % (0-1); Eosinophil# 0.48 X10^3/uL; Eosinophils% 7.9 % (0-5); Hematocrit 34.9 % (40-54); Hemoglobin 10.3 g/dL (13.0-16.5); Lymphocyte # 1.58 X10^3/ul (0.83-4.51); Mean Corp Hgb Conc 29.5 g/dL (32-36); Mean Corpuscular Hgb 27.9 pg (27.0-32.0); Mean Corpuscular Volume 94.6 fL (80-94); Mean Platelet Vol. 10.4 fl (6.2-12.0); Monocyte# 0.64 X10^3/uL; Monocyte% 10.5 % (0-10); NRBC Flagged by Analyzer 0 % (0-5); Neutrophil # 3.33 X10^3/uL (2.7-7.7); Neutrophil % 54.8 % (47-70); Platelet Count 160 K/mm3 (150-450); RBC Distribution Width SD 64.6 fl (35.1-43.9); Red Blood Count 3.69 M/mm3 (4.6-6.2); White Blood Count 6.1 K/mm3 (4.4-11.0)
[2024-05-18 10:23] LABS: Anion Gap 5 (5-15); BUN 114 mg/dL (7-18); BUN/Creat Ratio 36.5 RATIO (10-20); Calcium,Total 8.9 mg/dL (8.5-10.1); Chloride 118 mmol/L (98-107); Creatinine, Serum 3.12 mg/dL (0.70-1.30); EST Glomerular Filtration Rate 20 mL/min (>60); Est Glom Filt Rate - Afr Amer 25 mL/min (>60); Estimated Creatinine Clearance 15.51 ml/min; Glucose 90 mg/dL (74-106); Potassium 4.9 mmol/L (3.5-5.1); Sodium Level 143 mmol/L (136-145)
--- NOTE | 2024-05-18 13:08 | EKG12_ITS ---
Test Reason : POST PROCEDURE Blood Pressure : / mmHG Vent. Rate : 084 BPM Atrial Rate : 084 BPM P-R Int : 180 ms QRS Dur : 160 ms QT Int : 438 ms P-R-T Axes : 034 -66 109 degrees QTc Int : 517 ms Normal sinus rhythm with electronic ventricular pacer tracking atrial rate Confirmed by Raimundo Brand ([id number]), commissioning editor SID CALLE ([id number]) on 05/19/2024 7:59:40 AM Referred By: Tiago Goldberg Confirmed By:Raimundo Brand
[2024-05-18 14:21] LABS: ACT Activated Clotting Time 226 sec (74-137)
--- NOTE | 2024-05-18 14:27 | PCM.OPRPT ---
Report of Operation Date of Procedure: 05/18/24 Pre-Operative Diagnosis: atherosclerosis with ulceration left foot Post-Operative Diagnosis: same Surgery/Procedure Performed:: aortogram, bilateral lower extremity runoff IVUS left TP trunk, left SFA/popliteal, left common femoral/external iliac/common iliac, right common iliac/external iliac angioplasty left popliteal Surgeon: Tiago Goldberg Type of Anesthesia: Local and Sedation,Conscious Estimated Blood Loss (mL): 5 Description of Procedure: HPI: Patient is an 84-year-old male with nonhealing wounds of the bilateral lower extremities and arterial insufficiency based on noninvasive physiologic studies. He has severe chronic kidney disease and is unable to obtain any contrast based imaging so he is taken now for angiography with CO2 for possible intervention. Description of procedure: Upon obtaining form consent and verification correct patient procedure site patient taken to the Remedial Project Manager he was positioned prepped and draped in usual sterile fashion. Timeout was then performed and conscious sedation administered Versed and fentanyl. Skin overlying the right common femoral artery was anesthetized 1% lidocaine the vessel accessed under ultrasound guidance with a micropuncture needle wire. This then exchanged for micropuncture sheath through which a Bentson wire was advanced and the micropuncture sheath exchanged for a short 6 Maltese sheath. Through the 6 Maltese sheath and Omni Flush catheter was advanced into the abdominal aorta and a digital subtraction CO2 angiogram of the aorta and pelvic vessels were then performed. We then navigated into the contralateral access and advancing the catheter in the distal external iliac artery. From this position sequential subtraction CO2 angiography was performed of the left lower extremity. This revealed mild stenosis of the proximal superficial femoral artery and an area of severe stenosis in the P1 segment of the popliteal artery. There is also total occlusion of the tibioperoneal trunk, peroneal artery, posterior tibial artery with nondiseased anterior tibial artery patent to the foot. These lesions appeared appropriate for endovascular treatment so the Bentson wire was then advanced and the Omni Flush catheter withdrawn. The 6 Maltese sheath was exchanged for a long 6 Maltese sheath which was advanced into position and the contralateral common femoral artery. The patient was in heparinized allowed to circulate for 3 minutes and utilizing a Bentson wire and quick cross catheter we navigated across the areas of stenosis. Once the catheter past the more distal stenosis the wires were withdrawn and CO2 angiogram was performed which revealed positioning within the true lumen with no extravasation dissection. An 018 wire was then advanced and the Omni Flush cath withdrawn. Intravascular shunt probe was then advanced and recorded pullback performed of the popliteal artery, superficial femoral artery, left common femoral artery. This confirmed the areas of high-grade stenosis in the proximal popliteal artery and gave reference vessel sizes. A 6 mm x 100 angioscope balloon was advanced in position and inflated to nominal for multiple inflations across the lesion. This was then withdrawn and repeat CO2 imaging revealed satisfactory lesion response with no extravasation or dissection or residual stenosis. Next a [employer] [place] 6 x 150 paclitaxel coated angioplasty balloon advanced in position and inflated to nominal for 3 minutes and deflated withdrawn. Completion CO2 angiography confirmed satisfactory lesion response no extravasation or dissection and no evidence of distal embolization. The 6 Maltese sheath was then withdrawn back into the ipsilateral external iliac artery and intravascular sound probe readvanced with recorded pullback performed of the left popliteal SFA artery, left common femoral artery, left external aorta, left common iliac artery, right common iliac artery, right external iliac artery. This confirmed satisfactory Sponseller angioplasty segment with no residual stenosis or dissection. This also confirmed that there is no significant occlusive disease within the iliac vessels. We then exchanged the long 6 Maltese sheath for a short 6 Maltese sheath and performed CO2 angiography the right lower extremity. Given sheath positioning and orientation this gave very limited visualization but confirmed patent superficial femoral artery proximally with what appeared to be stenosis or occlusion of the popliteal artery in the P1 segment. Is felt that this could be treated at a later time of the left femoral access. 6 Maltese minx was then deployed followed by 5 minutes minute pressure with satisfactory stasis noted. Patient was then taken to the recovery area with anticipated bedrest with discharge to home. Shortly after arriving in the coverage area his blood pressure substantially declined and was unresponsive to fluids and atropine. I returned to the bedside and formed ultrasound evaluation of the access site which did not appear to demonstrate any hematoma or active extravasation from the femoral vessel or the distal external iliac artery which were visualized for several centimeters above our access site. The patient continued to remain hypotensive without satisfactory sponsor the fluid so the patient was taken to the Remedial Project Manager for left femoral access imaging to assess for any access related hemorrhage. Skin overlying the left common femoral artery was anesthetized 1% lidocaine the vessel accessed with a micropuncture needle wire. This exchanged for micropuncture sheath which a [place] wire was advanced into the abdominal aorta. The micropuncture sheath and exchanged for 6 Maltese sheath through which an Omni Flush catheter was advanced into the abdominal artery and a subtraction CO2 angiogram of the aorta and bilateral iliac arteries performed. This did not appear to show any extravasation but in order to confirm a hand-injection dilute contrast subtraction angiography was performed which revealed brisk contrast transit through the aorta and bilateral common and external iliac arteries with no extravasation identified. At the right femoral access site appeared satisfactory and sidebranches in this vicinity did not appear to have any disruption. Next using an Omni Flush catheter and the Bentson wire we navigated into the contralateral external leg artery and took oblique views of the distal external iliac and common femoral artery which again revealed no extravasation and no evident evidence of any major artery based hemorrhage. The patient had stabilized and was on a low-dose of Levophed for support. His mental status was improving and his blood pressure was now satisfactory. The 6 Maltese sheath was then left in position for arterial pressure monitoring and the patient then had an echo performed on the cath table followed by transport to the CAT scanner to evaluate for intra-abdominal hemorrhage and unrelated to her access site. He was then going to be admitted to the intensive care unit for hemodynamic monitoring and pressure support.
[2024-05-18 14:46] LABS: Bedside Glucose 84 mg/dL (74-106)
--- NOTE | 2024-05-18 15:30 | CT_ITS ---
EXAM: CT ABDOMEN AND PELVIS WITHOUT INTRAVENOUS CONTRAST CLINICAL INDICATION: post surgery hypotension TECHNIQUE: Helically acquired images were obtained of the abdomen and pelvis without intravenous contrast. This CT exam was performed using one or more of the following dose reduction techniques: automated exposure control, adjustment of the mA and/or kV according to patient size, and/or use of iterative reconstruction technique. COMPARISON: No relevant prior studies available. FINDINGS: LOWER THORAX: There is minimal atelectasis in the lung bases. There are coronary artery calcifications. No cardiomegaly. No significant pericardial effusion. ABDOMEN: LIVER: Unremarkable. Homogeneous. GALLBLADDER AND BILE DUCTS: There are tiny gallstones present but no inflammation. No gallbladder distention or wall edema. No intra- or extrahepatic biliary ductal dilation. PANCREAS: Unremarkable. No focal cystic mass. SPLEEN: Unremarkable. Normal size without focal cystic or solid mass. ADRENALS: Unremarkable. No nodules. KIDNEYS AND URETERS: There is a low-density mass in the right kidney compatible simple cyst. A follow-up imaging is necessary. No hydronephrosis. STOMACH AND BOWEL: Unremarkable. No stomach or bowel distention. No focal inflammatory change. PELVIS: APPENDIX: No evidence of acute appendicitis. BLADDER: There is a [place] catheter in the bladder. There is gas within the bladder from placement of the catheter. REPRODUCTIVE: Unremarkable as visualized. No mass. ABDOMEN and PELVIS: INTRAPERITONEAL SPACE: There is isodense fluid and inflammation in the right pelvis extending up into the right paracolic space likely due to hemorrhage. There is no active hemorrhage identified. There is no focal hematoma. There are small collections of gas seen in the mesentery of the right hemipelvis anteriorly seen on series 2 images 158 through 164. This may be due to recent surgery. BONES/JOINTS: Unremarkable. No suspicious lytic or blastic abnormality. SOFT TISSUES: Unremarkable. No discrete abdominal or pelvic wall hernia. VASCULATURE: See above. LYMPH NODES: Unremarkable. No enlarged lymph nodes. CT/Abdomen/Pelvis without Cont IMPRESSION: Isodense of fluid and inflammation in the right hemipelvis and right hemiabdomen likely due to hemorrhage. There is no focal hematoma or active bleeding identified. There is a small collection of gas in the mesentery of the anterior right hemipelvis. Electronically Signed: Fredis Torres MD at 17:29 EDT ,
--- NOTE | 2024-05-18 15:37 | ECHOL_ITS ---
Reason For Study: CHF Procedure This was a limited 2D transthoracic echocardiogram. Exam performed STAT in [employer]. Left Ventricle Normal LV size. The estimated ejection fraction is 60-65 %. Unable to assess diastolic dysfunction. No regional wall motion abnormalities noted. Right Ventricle Normal RV size. Normal systolic function. Atria The left and right atria are normal. No doppler evidence for ASD. Mitral Valve There is no mitral valve stenosis. No mitral valve insufficiency. Tricuspid Valve Unable to estimate RV systolic pressure due to inadequate jet, pulmonary artery pressure probably normal. Aortic Valve Trisinus/trileaflet aortic valve. There is no aortic stenosis. Mild (1+) aortic valve insufficiency. ECHO/Echo, Limited Study Interpretation Summary The estimated ejection fraction is 60-65 %. Unable to assess diastolic dysfunction. Mild (1+) aortic valve insufficiency. Ordering Physician: Tiago Goldberg Referring Physician: Tiago Goldberg Performed By: Paul Ta RCS
[2024-05-18 15:45] LABS: Absolute Lymphocyte Count 3.68 X10^3/uL (0.83-4.51); Basophil# 0.03 X10^3/uL; Basophil% 0.3 % (0-1); Eosinophil# 0.57 X10^3/uL; Eosinophils% 5.8 % (0-5); Hemoglobin 6.8 g/dL (13.0-16.5); Lymphocyte # 3.68 X10^3/ul (0.83-4.51); Lymphocyte % 37.7 % (19-41); Mean Corp Hgb Conc 28.3 g/dL (32-36); Mean Corpuscular Hgb 27.6 pg (27.0-32.0); Mean Corpuscular Volume 97.6 fL (80-94); Mean Platelet Vol. 10.8 fl (6.2-12.0); Monocyte# 0.97 X10^3/uL; Monocyte% 9.9 % (0-10); NRBC Flagged by Analyzer 0 % (0-5); Neutrophil # 4.47 X10^3/uL (2.7-7.7); Neutrophil % 45.9 % (47-70); POSITIVE MORPHOLOGY YES; Platelet Count 179 K/mm3 (150-450); RBC Distribution Width SD 65.8 fl (35.1-43.9); Red Blood Count 2.46 M/mm3 (4.6-6.2); White Blood Count 9.8 K/mm3 (4.4-11.0)
[2024-05-18 15:56] LABS: Differential Indicated SCAN CRITERIA MET
[2024-05-18 16:08] LABS: Anion Gap 4 (5-15); BUN 110 mg/dL (7-18); Calcium,Total 7.5 mg/dL (8.5-10.1); Chloride 125 mmol/L (98-107); Creatinine, Serum 2.97 mg/dL (0.70-1.30); EST Glomerular Filtration Rate 22 mL/min (>60); Est Glom Filt Rate - Afr Amer 26 mL/min (>60); Estimated Creatinine Clearance 16.29 ml/min; Glucose 124 mg/dL (74-106); Magnesium 1.6 mg/dL (1.6-2.6); Potassium 5.1 mmol/L (3.5-5.1); Sodium Level 146 mmol/L (136-145)
[2024-05-18 16:15] LABS: Anisocytosis 2+; Differential Comment SCANNED; Ovalocyte RARE
[2024-05-18 16:18] LABS: Absolute Neutrophil Count 4.5 X10^3/uL (2.0-7.7); Troponin-I HS 29 pg/mL (3.0-78.0)
[2024-05-18] MEDS: 0.45% Normal Saline 1,000 ML 50 ML IV (16:50)
--- NOTE | 2024-05-18 17:40 | RAD_ITS ---
EXAM: XR CHEST, 1 VIEW CLINICAL INDICATION: central line placement TECHNIQUE: Frontal view of the chest. COMPARISON: No relevant prior studies available. FINDINGS: LUNGS AND PLEURAL SPACES: Unremarkable. No consolidation or edema. No pneumothorax. No effusion. HEART: Unremarkable. Cardiac silhouette not enlarged. MEDIASTINUM: Central airways and mediastinal contour are unremarkable. BONES/JOINTS: Unremarkable. No acute fracture. SOFT TISSUES: Unremarkable. TUBES, LINES AND DEVICES: Right jugular catheter is in place with the distal tip overlying the junction between the superior vena cava and right atrium. Left-sided pacemaker is in place. RAD/CXR for Line Placement IMPRESSION: No acute pulmonary abnormality. Right jugular catheter in good position. Electronically Signed: Fredis Torres MD at 18:22 EDT ,
[2024-05-18] MEDS: Norepinephrine 8 MG in 0.9% Normal Saline (250mL Bag) 242 ML 18.8 MG CONT INF (17:50)
--- NOTE | 2024-05-18 17:56 | PCM.HP.STD ---
[facility] - General General Date of Admission: 05/18/24 HPI Narrative ALY LACY, is a 84 M who presented today for planned outpatient lower extremity angiogram with CO2 secondary to nonhealing bilateral lower extremity wounds in the setting of significant PAD and renal insufficiency. He tolerated the procedure well and it seemed to be without complication. After the procedure when the patient was in recovery he suddenly became significantly hypotensive unresponsive to fluids or atropine requiring the initiation of levophed. Beside ultrasound did not show any hematoma or extravasation at or near the femoral access site. He was returned to the laborer ammunition assembly to further examine for any access related hemorrhage; no extravasation was noted, the R fem access site and side branches appeared intact. The 6 Italian sheath was then left in position for arterial pressure monitoring. At that point he had hemodynamically stabilized and mental status was improved. He had echo in the laborer ammunition assembly which showed EF 60-65%, mild aortic valve insufficiency. He was then taken right to CT where an Abdomen/Pelvis CT did reveal a retroperitoneal bleed without any evidence of focal hematoma or active bleeding. Patient is admitted to the ICU for ongoing hemodynamic monitoring. PENDING SALE TO [facility] Home Medications ?Medication ?Instructions ?Recorded ?Last Taken ?Type brimonidine 0.2 %-timolol 0.5 % 1 drp ophthalmic (eye) DAILY 04/03/15 Unknown History eye drops (Combigan) clopidogrel 75 mg tablet 75 mg PO DAILY 04/03/15 05/18/24 History latanoprost 0.005 % eye drops 1 drp QHS 04/03/15 Unknown History magnesium oxide 400 mg (241.3 mg 400 mg PO TID 04/03/15 Unknown History magnesium) tablet metoprolol succinate 25 mg 25 mg PO DAILY 04/03/15 05/18/24 History tablet,extended release 24 hr simvastatin 40 mg tablet 40 mg PO QHS 04/03/15 Unknown History sucralfate 1 gram tablet 1 g PO BID 04/03/15 05/18/24 History tamsulosin 0.4 mg capsule 0.4 mg PO BID 04/03/15 Unknown History apremilast 30 mg tablet (Otezla) 30 mg PO DAILY 02/05/16 Unknown History ferrous sulfate 325 mg (65 mg 325 mg PO DAILY 03/08/24 Unknown History iron) tablet (FeroSul) glipizide 2.5 mg tablet, extended 2.5 mg PO BID 03/08/24 Unknown History release 24 hr sodium polystyrene sulfonate 15 60 ml PO 03/08/24 Unknown History gram-sorbitol 20 gram/60 mL oral susp (SPS (with sorbitol)) timolol maleate 0.5 % eye drops 1 drp ophthalmic (eye) 03/08/24 Unknown History cetirizine 10 mg tablet (Zyrtec) 10 mg PO QDAY PRN 05/05/24 Unknown History cobalamine combinations capsule cap PO 05/05/24 Unknown History duloxetine 20 mg capsule,delayed 20 mg PO ONCE 05/05/24 Unknown History release (Cymbalta) gabapentin 100 mg capsule 400 mg PO TID 05/05/24 05/18/24 History insulin glargine 100 unit/mL 12 unit subcut QPM 05/05/24 Unknown History subcutaneous cartridge insulin lispro 100 unit/mL 1 sliding scale dose subcut 05/05/24 Unknown History subcutaneous pen USEASDIRECTD Allergy/AdvReac Type Severity Reaction Status Date / Time latex Allergy Intermediate Rash Verified 05/05/24 14:37 penicillin Allergy Intermediate Unknown Verified 05/05/24 14:37 tramadol Allergy Mild Nausea Verified 05/05/24 14:37 Surgical History Hx of cataract surgery (~1996) Social History Smoking Status: Never smoker Vital Signs Vital Signs Vital Signs: Weight Weight: 159 lb 9.835 oz Body Mass Index (BMI) 25.7 Physical Exam Const alert and oriented x3 General Appearance: cooperative HEENT normocephalic, head/scalp atraumatic, hearing grossly normal bilaterally, external ears normal and external nose normal Neck General: normal visual inspection and trachea midline Resp normal respiratory effort and no retractions Effort and Inspection: able to speak in complete sentences; Negative for labored, grunting, stridor or uses accessory muscles Cardio regular rate and regular rhythm Extremity Extremity Narrative: R groin with [address] No hematoma, ecchymosis Skin General Skin Exam: Negative for ecchymosis Neuro oriented x3, CN's II-XII intact bilaterally, moves all extremities and no focal motor deficits Speech: speech normal Psych mental status grossly normal, cooperative and affect normal Results Lab / Micro Data 05/18/24 15:25 05/18/24 15:25 Labs: Laboratory Results - last 24 hr 05/18/24 09:46: WBC 6.1, RBC 3.69 L, Hgb 10.3 L, Hct 34.9 L, MCV 94.6 H, MCH 27.9, MCHC 29.5 L, RDW Std Deviation 64.6 H, RDW Coeff of Chucky 19.0 H, Plt Count 160, MPV 10.4, Immature Gran % (Auto) 0.300, Neut % (Auto) 54.8, Lymph % (Auto) 26.0, [place] % (Auto) 10.5 H, Eos % (Auto) 7.9 H, Baso % (Auto) 0.5, Absolute Neuts (auto) 3.3, Absolute Lymphs (auto) 1.58, Nucleated RBC % 0, Sodium 143, Potassium 4.9, Chloride 118 H, Carbon Dioxide 19.0 L, Anion Gap 5, BUN 114 H*, Creatinine 3.12 H, Estim Creat Clear Calc 15.51, Est GFR (MDRD) Af Amer 25 L, Est GFR (MDRD) Non-Af 20 L, BUN/Creatinine Ratio 36.5 H, Glucose 90, Calcium 8.9 05/18/24 13:46: Activated Clotting Time 226 H 05/18/24 14:28: POC Glucose 84 05/18/24 15:25: WBC 9.8, RBC 2.46 L, Hgb 6.8 L, Hct 24.0 L, MCV 97.6 H, MCH 27.6, MCHC 28.3 L, RDW Std Deviation 65.8 H, RDW Coeff of Chucky 19.0 H, Plt Count 179, MPV 10.8, Immature Gran % (Auto) 0.400, Neut % (Auto) 45.9 L, Lymph % (Auto) 37.7, [place] % (Auto) 9.9, Eos % (Auto) 5.8 H, Baso % (Auto) 0.3, Absolute Neuts (auto) 4.5, Absolute Lymphs (auto) 3.68, Nucleated RBC % 0, Differential Comment SCANNED, Anisocytosis 2+, Ovalocytes RARE, Sodium 146 H, Potassium 5.1, Chloride 125 H, Carbon Dioxide 17.0 L, Anion Gap 4 L, BUN 110 H*, Creatinine 2.97 H, Estim Creat Clear Calc 16.29, Est GFR (MDRD) Af Amer 26 L, Est GFR (MDRD) Non-Af 22 L, BUN/Creatinine Ratio 37.0 H, Glucose 124 H, Calcium 7.5 L, Phosphorus 5.0 H, Magnesium 1.6, Troponin I High Sens 29 05/18/24 16:25: Crossmatch See Detail Imaging Radiology Impression Abdomen/Pelvis CT 05/18/24 15:30 IMPRESSION: Isodense of fluid and inflammation in the right hemipelvis and right hemiabdomen likely due to hemorrhage. There is no focal hematoma or active bleeding identified. There is a small collection of gas in the mesentery of the anterior right hemipelvis. Electronically Signed: Fredis Torres MD at 17:29 EDT , Echocardiogram 05/18/24 15:37 Interpretation Summary The estimated ejection fraction is 60-65 %. Unable to assess diastolic dysfunction. Mild (1+) aortic valve insufficiency. Ordering Physician: Tiago Goldberg Referring Physician: Tiago Goldberg Performed By: Paul Ta RCS Assessment & Plan Assessment/Plan (1) Retroperitoneal hemorrhage: (2) Other specified peripheral vascular diseases: PLAN: Plan Patient is admitted for retroperitoneal bleed of uncertain source. No active bleeding was identified on CT. He has stabilized. Central line was placed by Dr. Goldberg. 6 [address] remains in place at the R groin for blood pressure monitoring. pathology laboratory aides teacher RN will remove tomorrow. Patient's Hgb dropped to 6.8 from 10.3 pre-procedure. Will transfuse 3 units PRBC. Monitor closely. Repeat CBC in the AM. Repeat Cr 2.97 and GFR 22, slightly improved from pre-op. Will continue to monitor closely. Repeat CMP in the AM. Will continue levophed and wean as able. Will keep NPO for now. Continue bedrest until tomorrow morning, then will re-evaluate.
--- NOTE | 2024-05-18 18:22 | PCM.PN.HOSP ---
Reason for Visit Reason for Visit: Diagnoses Non-pressure chronic ulcer of left ankle with fat layer exposed (05/18/24) Subjective Subjective 84-year-old male history of insulin-dependent diabetes, peripheral vascular disease, CKD who presented to [facility] 05/18/2024 for an outpatient elective angiogram. After angiogram patient suddenly became hypotensive with systolic pressure in the 50s, was given 1/2 L of IV fluid, had emergent echo, taken for emergent CT and was found to have retroperitoneal bleed. Hemoglobin initially 10.3 and after procedure was 6.8, type and screen for 3 units with H&H's to trend. Patient started on Levophed due to his hypotension and currently awaiting 3 units packed red blood cells. Patient evaluated at bedside and woke up and answer questions appropriately, somewhat tired, denies pain, has no other new or acute complaints. Objective Data Objective Data Vital Signs: Weight: 72.4 kg Body Mass Index (BMI) 25.7 Lab / Micro Data 05/18/24 15:25 05/18/24 15:25 Labs: Laboratory Results - last 24 hr 05/18/24 09:46: WBC 6.1, RBC 3.69 L, Hgb 10.3 L, Hct 34.9 L, MCV 94.6 H, MCH 27.9, MCHC 29.5 L, RDW Std Deviation 64.6 H, RDW Coeff of Chucky 19.0 H, Plt Count 160, MPV 10.4, Immature Gran % (Auto) 0.300, Neut % (Auto) 54.8, Lymph % (Auto) 26.0, [place] % (Auto) 10.5 H, Eos % (Auto) 7.9 H, Baso % (Auto) 0.5, Absolute Neuts (auto) 3.3, Absolute Lymphs (auto) 1.58, Nucleated RBC % 0, Sodium 143, Potassium 4.9, Chloride 118 H, Carbon Dioxide 19.0 L, Anion Gap 5, BUN 114 H*, Creatinine 3.12 H, Estim Creat Clear Calc 15.51, Est GFR (MDRD) Af Amer 25 L, Est GFR (MDRD) Non-Af 20 L, BUN/Creatinine Ratio 36.5 H, Glucose 90, Calcium 8.9 05/18/24 13:46: Activated Clotting Time 226 H 05/18/24 14:28: POC Glucose 84 05/18/24 15:25: WBC 9.8, RBC 2.46 L, Hgb 6.8 L, Hct 24.0 L, MCV 97.6 H, MCH 27.6, MCHC 28.3 L, RDW Std Deviation 65.8 H, RDW Coeff of Chucky 19.0 H, Plt Count 179, MPV 10.8, Immature Gran % (Auto) 0.400, Neut % (Auto) 45.9 L, Lymph % (Auto) 37.7, [place] % (Auto) 9.9, Eos % (Auto) 5.8 H, Baso % (Auto) 0.3, Absolute Neuts (auto) 4.5, Absolute Lymphs (auto) 3.68, Nucleated RBC % 0, Differential Comment SCANNED, Anisocytosis 2+, Ovalocytes RARE, Sodium 146 H, Potassium 5.1, Chloride 125 H, Carbon Dioxide 17.0 L, Anion Gap 4 L, BUN 110 H*, Creatinine 2.97 H, Estim Creat Clear Calc 16.29, Est GFR (MDRD) Af Amer 26 L, Est GFR (MDRD) Non-Af 22 L, BUN/Creatinine Ratio 37.0 H, Glucose 124 H, Calcium 7.5 L, Phosphorus 5.0 H, Magnesium 1.6, Troponin I High Sens 29 05/18/24 16:25: Crossmatch See Detail Radiography Diagnostic Testing: Radiology Impression Abdomen/Pelvis CT 05/18/24 15:30 IMPRESSION: Isodense of fluid and inflammation in the right hemipelvis and right hemiabdomen likely due to hemorrhage. There is no focal hematoma or active bleeding identified. There is a small collection of gas in the mesentery of the anterior right hemipelvis. Electronically Signed: Fredis Torres MD at 17:29 EDT , Echocardiogram 05/18/24 15:37 Interpretation Summary The estimated ejection fraction is 60-65 %. Unable to assess diastolic dysfunction. Mild (1+) aortic valve insufficiency. Ordering Physician: Tiago Goldberg Referring Physician: Tiago Goldberg Performed By: Paul Ta RCS Physical Exam Narrative General: Resting comfortably, wakes up and answers questions but quickly falls back asleep HEENT: Atraumatic, normocephalic, appears to be slightly dry Eyes: Anicteric, normal conjunctiva, extraocular movements grossly intact Neck: Supple Respiratory: Clear to auscultation bilaterally, normal respiratory effort Cardiovascular: Regular rate and rhythm GI: Retroperitoneal hemorrhage, did not perform deep palpation but did not have acute tenderness to light palpation Extremities: No edema Musculoskeletal: Moving all extremities Neuro: No overt focal neurological deficits Skin: Some chronic wounds on lower extremities Psych: Cooperative Assessment & Plan Assessment/Plan (1) Retroperitoneal hemorrhage: PLAN: Plan # Shock and acute blood loss anemia secondary to retroperitoneal hemorrhage -Patient with CT scan post angiogram that demonstrated retroperitoneal hemorrhage -Hemoglobin decreased from 10.3-6.8 -Patient was started on Levophed and right IJ placed by vascular surgery -Type and cross for 3 units packed red blood cells and awaiting transfusion, blood pressure stably low on Levophed at this time -Patient able to wake up and answer questions appropriately -Patient have hemoglobin trended after transfusion -Discussed case with vascular surgery -Patient's status post IV fluid boluses, remains on IV fluids # Peripheral vascular disease -Status post angiogram as patient has had some nonhealing lower extremity wounds -Plavix continued at this time -Continue toward statin # CKD stage IV -Creatinine 2.97 which is actually lower than last month at 3.24, does have significant uremia at this also down trended slightly -Repeat in a.m. #Type 2 diabetes mellitus -Glucose checks and sliding scale insulin -Adding BP holding parameters for gabapentin as this could lower blood pressure -Hold home hypoglycemic agents #Chronic BPH with obstruction -Patient has Conway catheter placed, will hold tamsulosin as this could also decrease patient's blood pressure and he has Conway catheter in place # Chronic lower extremity wounds -Follows with wound center on outpatient basis -Supportive care # History of depression -On Cymbalta at home, resume once hemoglobin stable as there is a slight antiplatelet effect with serotonergic agent #DVT ppx: Patient actively bleeding Carissa Fine MD Time spent in the patient's overall evaluation,decision-making process, review of diagnostic data, adjustment of management, discussion with other providers, nursing nursing and ancillary staff involved in patient's care documentation, 45 Minutes Charges/Coding Visit Charges Office Visits / Consults: 64230 OV L5 Est 40min
--- NOTE | 2024-05-18 19:39 | NURSING ---
Upon arrival from [employer] patient had levophed running at 10mcg/min, ran until pharmacy sent new bag.
[2024-05-18 19:49] LABS: Bedside Glucose 113 mg/dL (74-106)
--- NOTE | 2024-05-18 20:15 | NURSING ---
Blood bank micro lab analyst called unit to inform this RN that pt has immunogenic antibodies and that they will have to outsource to [place] for PRBC's. PRBC administration will be delayed until units are available.
[2024-05-18] MEDS: Gabapentin 400 MG Capsule PO (21:45)
[2024-05-18] MEDS: Acetaminophen 500 MG Tablet 1000 MG PO (21:45)
[2024-05-18] MEDS: MELATONIN 3 MG TABLET PO (21:45)
[2024-05-18] MEDS: Atorvastatin Calcium 20 MG Tablet PO (21:46)
[2024-05-18 22:55] LABS: Hematocrit 25.3 % (40-54); Hemoglobin 7.3 g/dL (13.0-16.5)
[2024-05-19] VITALS (57 sets, daily range): BP systolic 75–143; BP diastolic 29–100; PULSE 62–97; RESP 13–30; TEMP 36.2–36.8; O2SAT 92–100; BMI 24.9
[2024-05-19] MEDS: Norepinephrine 8 MG in 0.9% Normal Saline (250mL Bag) 242 ML 46.9 MG CONT INF (00:24)
[2024-05-19 00:44] LABS: Bedside Glucose 145 mg/dL (74-106)
--- NOTE | 2024-05-19 02:31 | NURSING ---
0230- Blood still not ready at this time but consent was never signed by patient, or doctor despite receiving in report that consent had been obtained. Consent for blood was only obtained by for during the central line placement, pt has previously declined administration of blood by his own choice for the angiogram. Pt contacted at this time as pt is confused and unable to consent/ refuse blood. No answer from and VM left on mobile. - pt last hgb 7.3( up from 6.8) H+H continue to be Q6H, will check hgb at 0300.
[2024-05-19 03:32] LABS: Hematocrit 24.3 % (40-54); Hemoglobin 7.1 g/dL (13.0-16.5)
--- NOTE | 2024-05-19 03:39 | NURSING ---
0335- blood bank called to inform this RN that 2/3 units are now ready. 0300 hgb back at 7.1
[2024-05-19] MEDS: Ondansetron 4 MG/2 ML Vial IV (04:37)
[2024-05-19] MEDS: 0.9% Saline Lock 10 ML Syringe IV ×3 (04:37→20:36)
--- NOTE | 2024-05-19 04:53 | CT_ITS ---
STUDY: CT CHEST, ABDOMEN T PELVIS WITHOUT CONTRAST REASON FOR EXAM: Male, 84 years old. retroperitoneal bleed RADIATION DOSAGE (If Supplied By Facility): CTDIvol = ( 23.42 ) mGy, DLP = ( 2245.67 ) mGycm TECHNIQUE: Transaxial imaging was performed without the administration of intravenous contrast material. Individualized dose optimization techniques were used for this CT. COMPARISON: No relevant priors. FINDINGS: CHEST Right internal jugular line tip projects at the distal superior vena cava. Left chest cardiac pacer noted. Cardiomegaly without pericardial effusion. Moderate calcified coronary atherosclerosis. No mediastinal or hilar adenopathy. No endobronchial lesion. Unremarkable esophagus. No endobronchial lesion. Trace dependent pleural effusions with mild atelectasis. No consolidation. No pneumothorax. ABDOMEN PELVIS Small dependent gallstones. No gross gallbladder distention or surrounding inflammation. Unremarkable liver, spleen, adrenals. Pancreatic body 2.1 cm indeterminate cystic lesion diminutive pancreatic tail distal to coarse calcification, possibly prior resected. Nonobstructive 2 mm right renal stone. Kidneys are moderately atrophic. Right renal benign 3 cm cyst, no imaging follow-up required. Unremarkable ureters. Bladder is decompressed with Conway catheter. Aortic atherosclerosis without ectasia. Unchanged right posterior pararenal and right greater than left posterio-lateral extraperitoneal pelvis hemorrhage compared with May 18, 2024. Unchanged left inferior lateral pelvic retroperitoneal stranding. Mild increased stranding in the bilateral inguinal canals. No acute gastric finding. No small bowel distention or focal wall thickening. Normal appendix.. No organized intra-abdominal free fluid or free air. No adenopathy. MUSCULOSKELETAL Bilateral glenohumeral osteoarthritis. No acute osseous finding. Partial ankylosis of the sacroiliac joints. Mild diffuse spondylosis. CT/CT Chest, Abd, Pelvis WO Cont IMPRESSION: Right greater left retroperitoneal hemorrhage without significant change from May 18, 2024. Redemonstration of bilateral inguinal hernias with increased inflammatory stranding, possibly related to retroperitoneal hemorrhage. Pancreatic body 2.1 cm indeterminate cystic lesion. Follow-up pancreatic protocol CT is recommended when clinically able if not stable on remote exams. Cholelithiasis. Nonobstructive nephrolithiasis. Electronically Signed: Tien Sepulveda MD at 6:24 EDT ,
[2024-05-19 04:58] LABS: Base Excess -22 mmol/L (-2 to +2); Bicarbonate 9.3 mmol/L (22-26); Blood Gas Specimen Type ART; Mode Not entered; O2 Delivery Device HFNC; PO2 95 mmHG (75-100); SITE Art Line; SO2 93 % (95-99); Total Carbon Dioxide 10 mmol/L; pCO2 36.3 mmHg (35-45); pH 7.02 (7.35-7.45)
--- NOTE | 2024-05-19 05:15 | PN.HOSP_ITS ---
Hospitalist Note Rapid Response was called overhead at ~5:00 AM after this patient vomited, aspirated and was transiently lethargic for ~10 seconds before regaining full consciousness. He was then noted to be modestly dyspneic with audible rhonci from across the room with patient then started on empiric IV Azactam and IV Flagyl (with listed allergy to PCN) to cover Gram-negative and anaerobic organisms associated with aspiration. The emesis with bilious and green with no signs of bleeding and he was emergently treated with IV Zofran. His belly was soft but notably distended with patient using some accessory muscles to breathe with STAT ABG and STAT CT of the chest, abdomen and pelvis ordered to assess severity and to reassess the size of his retroperitoneal hematoma. His first ABG was drawn from his arterial line with problems in lab during processing so a second was ordered with results noted below. He is alert and responsive and showing no signs of respiratory distress. UN DATE: 05/19/24 [facility], DEPARTMENT OF LABORATORIES PAGE 1 RUN TIME: 526 Specimen Inquiry [id number], [place], [address] PATIENT: ALY LACY LOC: ICU U #: [id number] : 1940 AGE/SX: 84/M FACILITY: [facility] ROOM: ICU02 RE05/18/[address]: Dr. Tiago Goldberg MD STATUS:ADM IN ED: 1 DIS: ~ SPEC #: [id number] HUNG: 05/19/24 STATUS: COMP REQ #: [id number] RECD: 05/19/[address]: Dr. Tiago Goldberg MD ENTERED: 05/19/[address]: DO Dr. Wale oJ MD ~ Test Result Flag Adult Reference Range IBG Blood Gas Type ART SITE Art Line MARICRUZ TEST Positive Mode Not entered O2 Delivery Dev HFNC FI02 15.0 Read Back By Yes pH 6.95 *L 7.35-7.45 pCO2 39.0 35-45 mmHg PO2 97 75-100 mmHG HCO3 8.5 L 22-26 mmol/L BE -24 L -2 to +2 mmol/L TOTAL CO2 10 mmol/L SO2 91 L 95-99 % UN DATE: 05/19/24 [facility], DEPARTMENT OF LABORATORIES PAGE 1 RUN TIME: 614 [address]imen Inquiry [id number], [place], [address] PATIENT: ALY LACY LOC: ICU U #: [id number] : 1940 AGE/SX: 84/M FACILITY: [facility] ROOM: ICU02 RE05/18/[address]: Dr. Tiago Goldberg MD STATUS:ADM IN ED: 1 DIS: ~ SPEC #: [id number] HUNG: 05/19/24 STATUS: COMP REQ #: [id number] RECD: 05/19/[address]: Dr. Tiago Goldberg MD ENTERED: 05/19/[address]: Dr. Adrian Yeboah, DO Dr. Wale Vasquez MD ~ Test Result Flag Adult Reference Range IBG Blood Gas Type ART SITE R Brach Mode Not entered O2 Delivery Dev HFNC FI02 8.0 Time Given 06:02:49 Results To willard Read Back By Yes pH 7.17 *L 7.35-7.45 pCO2 30.3 L 35-45 mmHg PO2 79 75-100 mmHG HCO3 11.1 L 22-26 mmol/L BE -18 L -2 to +2 mmol/L TOTAL CO2 12 mmol/L SO2 92 L 95-99 % END OF REPORT
--- NOTE | 2024-05-19 05:15 | PCM.HOSP.N ---
Hospitalist Note Rapid Response was called overhead at ~5:00 AM after this patient vomited, aspirated and was transiently lethargic for ~10 seconds before regaining full consciousness. He was then noted to be modestly dyspneic with audible rhonci from across the room with patient then started on empiric IV Azactam and IV Flagyl (with listed allergy to PCN) to cover Gram-negative and anaerobic organisms associated with aspiration. The emesis with bilious and green with no signs of bleeding and he was emergently treated with IV Zofran. His belly was soft but notably distended with patient using some accessory muscles to breathe with STAT ABG and STAT CT of the chest, abdomen and pelvis ordered to assess severity and to reassess the size of his retroperitoneal hematoma. His first ABG was drawn from his arterial line with problems in lab during processing so a second was ordered with results noted below. He is alert and responsive and showing no signs of respiratory distress. UN DATE: 05/19/24 , DEPARTMENT OF LABORATORIES PAGE 1 RUN TIME: 526 Specimen Inquiry [address], [place], [address] PATIENT: ALY LACY LOC: ICU U #: [id number] : 1940 AGE/SX: 84/M FACILITY: [facility] ROOM: ICU02 RE05/18/[address]: Dr. Tiago Goldberg MD STATUS:ADM IN ED: 1 DIS: ~ SPEC #: [id number] HUNG: 05/19/24 STATUS: COMP REQ #: [id number] RECD: 05/19/[address]: Dr. Tiago Goldberg MD ENTERED: 05/19/[address]: DO Dr. Wale Jo MD ~ Test Result Flag Adult Reference Range IBG Blood Gas Type ART SITE Art Line MARICRUZ TEST Positive Mode Not entered O2 Delivery Dev HFNC FI02 15.0 Read Back By Yes pH 6.95 *L 7.35-7.45 pCO2 39.0 35-45 mmHg PO2 97 75-100 mmHG HCO3 8.5 L 22-26 mmol/L BE -24 L -2 to +2 mmol/L TOTAL CO2 10 mmol/L SO2 91 L 95-99 % UN DATE: 05/19/24 , DEPARTMENT OF LABORATORIES PAGE 1 RUN TIME: 614 Specimen Inquiry [address] [place], [address] PATIENT: ALY LACY LOC: ICU U #: [id number] : 1940 AGE/SX: 84/M FACILITY: [facility] ROOM: ICU02 RE05/18/[address]: Dr. Tiago Goldberg MD STATUS:ADM IN ED: 1 DIS: ~ SPEC #: [id number] HUNG: 05/19/24 STATUS: COMP REQ #: [id number] RECD: 05/19/[address]: Dr. Tiago Goldberg MD ENTERED: 05/19/[address]: DO Dr. Wale Jo MD ~ Test Result Flag Adult Reference Range IBG Blood Gas Type ART SITE R Brach Mode Not entered O2 Delivery Dev HFNC FI02 8.0 Time Given 06:02:49 Results To willard Read Back By Yes pH 7.17 *L 7.35-7.45 pCO2 30.3 L 35-45 mmHg PO2 79 75-100 mmHG HCO3 11.1 L 22-26 mmol/L BE -18 L -2 to +2 mmol/L TOTAL CO2 12 mmol/L SO2 92 L 95-99 % END OF REPORT Imaging Services [address] [place], [place] [id number] CT Chest, Abd, Pelvis WO Cont MR#: [id number] Acct: [id number] Name: ALY LACY Rep #: [id number] : 1940 M 84 From: Tien Sepulveda MD PCP: Dr. Wale Vasquez MD Status: ADM IN Study: CT Chest, Abd, Pelvis WO Cont Date of Exam: 05/19/24 Exam# [id number] Ordering Dr: Adrian Yeboah DO STUDY: CT CHEST, ABDOMEN T PELVIS WITHOUT CONTRAST REASON FOR EXAM: Male, 84 years old. retroperitoneal bleed RADIATION DOSAGE (If Supplied By Facility): CTDIvol = ( 23.42 ) mGy, DLP = ( 2245.67 ) mGycm TECHNIQUE: Transaxial imaging was performed without the administration of intravenous contrast material. Individualized dose optimization techniques were used for this CT. COMPARISON: No relevant priors. FINDINGS: CHEST Right internal jugular line tip projects at the distal superior vena cava. Left chest cardiac pacer noted. Cardiomegaly without pericardial effusion. Moderate calcified coronary atherosclerosis. No mediastinal or hilar adenopathy. No endobronchial lesion. Unremarkable esophagus. No endobronchial lesion. Trace dependent pleural effusions with mild atelectasis. No consolidation. No pneumothorax. ABDOMEN PELVIS Small dependent gallstones. No gross gallbladder distention or surrounding inflammation. Unremarkable liver, spleen, adrenals. Pancreatic body 2.1 cm indeterminate cystic lesion diminutive pancreatic tail distal to coarse calcification, possibly prior resected. Nonobstructive 2 mm right renal stone. Kidneys are moderately atrophic. Right renal benign 3 cm cyst, no imaging follow-up required. Unremarkable ureters. Bladder is decompressed with Conway catheter. Aortic atherosclerosis without ectasia. Unchanged right posterior pararenal and right greater than left posterio-lateral extraperitoneal pelvis hemorrhage compared with May 18, 2024. Unchanged left inferior lateral pelvic retroperitoneal stranding. Mild increased stranding in the bilateral inguinal canals. No acute gastric finding. No small bowel distention or focal wall thickening. Normal appendix.. No organized intra-abdominal free fluid or free air. No adenopathy. MUSCULOSKELETAL Bilateral glenohumeral osteoarthritis. No acute osseous finding. Partial ankylosis of the sacroiliac joints. Mild diffuse spondylosis. CT/CT Chest, Abd, Pelvis WO Cont IMPRESSION: Right greater left retroperitoneal hemorrhage without significant change from May 18, 2024. Redemonstration of bilateral inguinal hernias with increased inflammatory stranding, possibly related to retroperitoneal hemorrhage. Pancreatic body 2.1 cm indeterminate cystic lesion. Follow-up pancreatic protocol CT is recommended when clinically able if not stable on remote exams. Cholelithiasis. Nonobstructive nephrolithiasis. Electronically Signed: Tien Sepulveda MD at 6:24 EDT , CC: Dr. Adrian Yeboah DO; Dr. Wale Vasquez MD ~ Warp Trucker: Signed
[2024-05-19 05:19] LABS: Bedside Glucose 161 mg/dL (74-106)
[2024-05-19] MEDS: Norepinephrine 8 MG in 0.9% Normal Saline (250mL Bag) 242 ML 56.3 MG CONT INF ×2 (05:20→09:51)
[2024-05-19] MEDS: Aztreonam 1 GM in 0.9% Normal Saline (50mL MB+) 50 ML IV (05:21)
[2024-05-19 06:05] LABS: Base Excess -18 mmol/L (-2 to +2); Bicarbonate 11.1 mmol/L (22-26); Blood Gas Specimen Type ART; Mode Not entered; O2 Delivery Device HFNC; PO2 79 mmHG (75-100); SITE R Brach; SO2 92 % (95-99); Total Carbon Dioxide 12 mmol/L; pCO2 30.3 mmHg (35-45); pH 7.17 (7.35-7.45)
[2024-05-19] MEDS: metroNIDAZOLE 500 MG/100 ML BAG 100 MG IV (06:15)
--- NOTE | 2024-05-19 06:16 | NURSING ---
0435- RN bedside w/ patient. Pt talking to RN and continues to be confused. Pt suddenly began to gag while in supine position, this RN put pt onto his left lateral side to try and prevent aspiration and called out for help. Kirk Chiu RN to bedside w/ this RN, suction set up and pt's mouth suctioned out. Emesis was dark green in color. Pt began to become increasingly confused and shake, not responding appropriately when being called to. Pt hypotensive but vitals stable. 0440 HUMIDIFIER ATTENDANT called. Pt placed back onto nasal cannula. Dr. Dumont to bedside. ABG ordered and drawn from arterial line by RT. Stat CT ordered to check for increased retroperitoneal bleeding. Dr. Goldberg called by this RN and updated on situation. Informed Dr. Goldberg that blood has not been given d/t delay in receiving product d/t pt having special antibiotics. Informed that hgb has remained above 7 the entirety of the night. 040, Dr. Goldberg gave this RN and Ziggy Garrido RN verbal consent to infuse blood w/o signed consent by pt or family. Once blood to floor, blood was verified and hung by this RN and Kirk Griffith RN. 4921- this RN, Yeni Chatterjee SENIOR DYNAMICS CRM DEVELOPER, Ignacio Fonseca RT, and pt off floor for stat abd/ pelv CT.
[2024-05-19] MEDS: Sodium Bicarbonate 8.4% 50 ML Syringe 50 MEQ IV ×3 (06:25→17:11)
[2024-05-19 06:35] LABS: Absolute Lymphocyte Count 1.58 X10^3/uL (0.83-4.51); Basophil# 0.05 X10^3/uL; Basophil% 0.2 % (0-1); Hematocrit 22.7 % (40-54); Hemoglobin 6.9 g/dL (13.0-16.5); Lymphocyte # 1.58 X10^3/ul (0.83-4.51); Lymphocyte % 6.4 % (19-41); Mean Corp Hgb Conc 30.4 g/dL (32-36); Mean Corpuscular Volume 92.3 fL (80-94); Mean Platelet Vol. 10.6 fl (6.2-12.0); Monocyte# 1.68 X10^3/uL; Monocyte% 6.8 % (0-10); NRBC Flagged by Analyzer 0.1 % (0-5); Neutrophil # 21.03 X10^3/uL (2.7-7.7); Neutrophil % 85.3 % (47-70); POSITIVE DIFFERENTIAL YES; Platelet Count 186 K/mm3 (150-450); RBC Distribution Width CV 18.6 % (11.6-14.6); RBC Distribution Width SD 61.6 fl (35.1-43.9); Red Blood Count 2.46 M/mm3 (4.6-6.2); White Blood Count 24.7 K/mm3 (4.4-11.0)
[2024-05-19 06:42] LABS: Differential Indicated SCAN CRITERIA MET
[2024-05-19 06:53] LABS: Anion Gap 10 (5-15); BUN 121 mg/dL (7-18); BUN/Creat Ratio 30.4 RATIO (10-20); Calcium,Total 7.3 mg/dL (8.5-10.1); Chloride 116 mmol/L (98-107); Creatinine, Serum 3.98 mg/dL (0.70-1.30); EST Glomerular Filtration Rate 15 mL/min (>60); Est Glom Filt Rate - Afr Amer 19 mL/min (>60); Estimated Creatinine Clearance 12.25 ml/min; Glucose 230 mg/dL (74-106); Potassium 7.2 mmol/L (3.5-5.1); Sodium Level 144 mmol/L (136-145)
--- NOTE | 2024-05-19 07:25 | EX.PCM.CONCC ---
Assessment & Plan Assessment/Plan (1) Retroperitoneal hemorrhage: (2) Hemorrhagic shock: (3) Aspiration pneumonitis due to regurgitated gastric secretions: PLAN: Plan RECOMMENDATIONS: 1. Continue vasopressor support. Attempt to maintain a mean arterial pressure at or above 60 mmHg. 2. Given elevated Levophed requirement, start vasopressin. 3. Continue transfusion of blood products as ordered. Check H&H posttransfusion. 4. Agree with initiating empiric antimicrobials. 5. Administer calcium and insulin as ordered. 6. Obtain nephrology consultation. 7. Hold sedating medications. 8. Maintain n.p.o. status for now. IMPRESSIONS: 1. Acute hemorrhagic shock secondary to retroperitoneal hemorrhage Continue current supportive measures including gentle IV fluid hydration and vasopressor support to maintain a mean arterial pressure at or above 60 mmHg. The patient is currently being transfused blood products. Check H&H posttransfusion. Follow-up CT imaging completed this morning demonstrated overall size stability in the size of the retroperitoneal hemorrhage. Given the patient's reported concern for an aspiration event this morning along with his elevated white blood cell count, will start empiric antimicrobials. Cultures will be obtained. 2. Acute on chronic kidney disease/hyperkalemia Most likely ischemic ATN in the setting of #1. Continue supportive measures as outlined above. Will obtain nephrology consultation today. 3. Acute metabolic encephalopathy I suspect that this is related to his current metabolic derangements, including uremia and low perfusion state. Recommend holding all sedating medications. The patient is to remain n.p.o. for now. 4. Peripheral vascular disease with nonhealing lower extremity wounds Continue ongoing supportive care per vascular surgery recommendations. Continue local wound care. 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 Continue sliding scale insulin coverage. The patient should remain n.p.o. for now. TIME: 42 minutes of critical care time, independent of procedures, was spent addressing the patient's acute hemorrhagic shock secondary to retroperitoneal hemorrhage, acute on chronic kidney disease, acute metabolic encephalopathy, peripheral vascular disease, review of all data and collaboration with the care team. HPI Consult Data Date of Consult: 05/19/24 HPI Narrative Reason for Consultation: Hemorrhagic shock HPI Narrative: The patient is an 84-year-old male, with a history as outlined below, who presented presented to the hospital on May 18 to undergo a planned outpatient lower extremity angiogram with CO2 secondary to nonhealing bilateral lower extremity wounds in the setting of significant peripheral arterial disease. The patient was seen in the vascular surgery clinic in mid April 2024 due to a history of bilateral lower extremity leg wounds. The patient has been followed by Dr. Christopher of the wound care clinic due to a 12-month history of nonhealing ulcerations of the bilateral feet and legs. The patient has a known history of hairy cell leukemia that is in remission, diabetes mellitus and chronic kidney disease. The patient's procedure was uncomplicated. However, a short time after procedure completion the patient became acutely hypotensive. Bedside ultrasound did not show any hematoma or extravasation at or near the femoral access site. He was returned to the Mining Analyst to undergo examination with the femoral access site appearing intact. A subsequent CT abdomen/pelvis did reveal a retroperitoneal bleed. Therefore, the patient was admitted to the medical intensive care unit, where he was ultimately initiated on vasopressor support. Early this morning, a rapid response was called at approximately 5 AM after the patient was noted to have vomited. He was notably more lethargic, with concern for aspiration. A blood gas was obtained which demonstrated a pH of 7.2 with a pCO2 of 30 and pO2 of 79. The patient was initiated on antimicrobials to cover for possible aspiration. A CT chest/abdomen/pelvis was obtained which demonstrated that the retroperitoneal hemorrhage had not changed significantly. There were no acute findings noted in the lungs. Currently, the patient has an elevated white blood cell count of 25,000 with a hemoglobin of 6.9 g/dL and platelet count of 186,000. Chemistry profile was notable for a sodium of 144, potassium of 7.2, chloride of 116, bicarbonate of 18, BUN of 121 and creatinine of 3.98. [facility] Medical History (Updated 05/19/24 @ 08:[address] Bob Walker, DO) Diabetes Hypertension Home Medications ?Medication ?Instructions ?Recorded ?Last Taken ?Type clopidogrel 75 mg tablet 75 mg PO DAILY 04/03/15 05/18/24 History latanoprost 0.005 % eye drops 1 drp QHS 04/03/15 Unknown History metoprolol succinate 25 mg 50 mg PO DAILY . 04/03/15 05/18/24 History tablet,extended release 24 hr simvastatin 40 mg tablet 40 mg PO QHS 04/03/15 Unknown History sucralfate 1 gram tablet 2 g PO BID . 04/03/15 05/18/24 History tamsulosin 0.4 mg capsule 0.8 mg PO BID . 04/03/15 Unknown History apremilast 30 mg tablet (Otezla) 30 mg PO DAILY 02/05/16 Unknown History ferrous sulfate 325 mg (65 mg 325 mg PO DAILY 03/08/24 Unknown History iron) tablet (FeroSul) glipizide 2.5 mg tablet, extended 2.5 mg PO BID 03/08/24 Unknown History release 24 hr sodium polystyrene sulfonate 15 60 ml PO .3x week . 03/08/24 Unknown History gram-sorbitol 20 gram/60 mL oral susp (SPS (with sorbitol)) timolol maleate 0.5 % eye drops 1 drp ophthalmic (eye) BID . 03/08/24 Unknown History cetirizine 10 mg tablet (Zyrtec) 10 mg PO QDAY PRN . 05/05/24 Unknown History cobalamine combinations capsule cap PO 05/05/24 Unknown History duloxetine 20 mg capsule,delayed 30 mg PO DAILY . 05/05/24 Unknown History release (Cymbalta) gabapentin 100 mg capsule 400 mg PO TID 05/05/24 05/18/24 History insulin glargine 100 unit/mL 18 unit subcut QPM . 05/05/24 Unknown History subcutaneous cartridge insulin lispro 100 unit/mL 1 sliding scale dose subcut 05/05/24 Unknown History subcutaneous pen USEASDIRECTD . brimonidine tartrate 1 drp BID . 05/18/24 Unknown History calcium 600 mg capsule 600 mg PO DAILY . 05/18/24 Unknown History cyanocobalamin (vitamin B-12) 500 500 mcg PO DAILY . 05/18/24 Unknown History mcg tablet (Vitamin B-12) montelukast 10 mg tablet 10 mg PO DAILY . 05/18/24 Unknown History (Singulair) Allergy/AdvReac Type Severity Reaction Status Date / Time latex Allergy Intermediate Rash Verified 05/05/24 14:37 penicillin Allergy Intermediate Unknown Verified 05/05/24 14:37 tramadol Allergy Mild Nausea Verified 05/05/24 14:37 Surgical History Hx of cataract surgery (~1996) Social History Smoking Status: Never smoker ROS Review of Systems ROS Unobtainable: due to mental status Physical Exam Const Constitutional Narrative: Somnolent but intermittently arousable and confused. General Appearance: ill appearing HEENT normocephalic and head/scalp atraumatic Eyes PERRL, EOMs intact bilaterally and conjunctivae normal Neck supple General: trachea midline and CVC in place Chest inspection of chest normal Resp normal respiratory effort Effort and Inspection: tachypneic Auscultation: diminished lung sounds Cardio regular rate and regular rhythm GI normal to inspection, nondistended, normoactive bowel sounds Extremity General Extremity: Negative for clubbing or edema Neuro no focal motor deficits Neuro Narrative: Moves all extremities spontaneously. Psych Mood & Affect: flat affect Lab / Micro Data 05/19/24 06:30 05/19/24 07:05 Labs: Laboratory Results - last 24 hr 05/18/24 09:46: WBC 6.1, RBC 3.69 L, Hgb 10.3 L, Hct 34.9 L, MCV 94.6 H, MCH 27.9, MCHC 29.5 L, RDW Std Deviation 64.6 H, RDW Coeff of Chucky 19.0 H, Plt Count 160, MPV 10.4, Immature Gran % (Auto) 0.300, Neut % (Auto) 54.8, Lymph % (Auto) 26.0, Preble % (Auto) 10.5 H, Eos % (Auto) 7.9 H, Baso % (Auto) 0.5, Absolute Neuts (auto) 3.3, Absolute Lymphs (auto) 1.58, Nucleated RBC % 0, Sodium 143, Potassium 4.9, Chloride 118 H, Carbon Dioxide 19.0 L, Anion Gap 5, BUN 114 H*, Creatinine 3.12 H, Estim Creat Clear Calc 15.51, Est GFR (MDRD) Af Amer 25 L, Est GFR (MDRD) Non-Af 20 L, BUN/Creatinine Ratio 36.5 H, Glucose 90, Calcium 8.9 05/18/24 13:46: Activated Clotting Time 226 H 05/18/24 14:28: POC Glucose 84 05/18/24 15:25: WBC 9.8, RBC 2.46 L, Hgb 6.8 L, Hct 24.0 L, MCV 97.6 H, MCH 27.6, MCHC 28.3 L, RDW Std Deviation 65.8 H, RDW Coeff of Chucky 19.0 H, Plt Count 179, MPV 10.8, Immature Gran % (Auto) 0.400, Neut % (Auto) 45.9 L, Lymph % (Auto) 37.7, Preble % (Auto) 9.9, Eos % (Auto) 5.8 H, Baso % (Auto) 0.3, Absolute Neuts (auto) 4.5, Absolute Lymphs (auto) 3.68, Nucleated RBC % 0, Differential Comment SCANNED, Anisocytosis 2+, Ovalocytes RARE, Sodium 146 H, Potassium 5.1, Chloride 125 H, Carbon Dioxide 17.0 L, Anion Gap 4 L, BUN 110 H*, Creatinine 2.97 H, Estim Creat Clear Calc 16.29, Est GFR (MDRD) Af Amer 26 L, Est GFR (MDRD) Non-Af 22 L, BUN/Creatinine Ratio 37.0 H, Glucose 124 H, Calcium 7.5 L, Phosphorus 5.0 H, Magnesium 1.6, Troponin I High Sens 29 05/18/24 16:25: Blood Type A POSITIVE, Antibody Screen POSITIVE, Antibody Identification ANTI-LITTLE c, Antigen Identification LITTLE c ANTIGEN - NEGATIVE, Crossmatch See Detail 05/18/24 19:31: POC Glucose 113 H 05/18/24 22:49: Hgb 7.3 L, Hct 25.3 L 05/19/24 00:21: POC Glucose 145 H 05/19/24 03:08: Hgb 7.1 L, Hct 24.3 L 05/19/24 04:44: POC Glucose 161 H 05/19/24 06:30: WBC 24.7 H, RBC 2.46 L, Hgb 6.9 L, Hct 22.7 L, MCV 92.3 D, MCH 28.0, MCHC 30.4 L D, RDW Std Deviation 61.6 H, RDW Coeff of Chucky 18.6 H, Plt Count 186, MPV 10.6, Immature Gran % (Auto) 1.300 H, Neut % (Auto) 85.3 H, Lymph % (Auto) 6.4 L, Preble % (Auto) 6.8, Eos % (Auto) 0.0, Baso % (Auto) 0.2, Absolute Neuts (auto) 21.0 H, Absolute Lymphs (auto) 1.58, Nucleated RBC % 0.1, Sodium 144, Potassium 7.2 H*, Chloride 116 H, Carbon Dioxide 18.0 L, Anion Gap 10, BUN 121 H*, Creatinine 3.98 H, Estim Creat Clear Calc 12.25, Est GFR (MDRD) Af Amer 19 L, Est GFR (MDRD) Non-Af 15 L, BUN/Creatinine Ratio 30.4 H, Glucose 230 H, Calcium 7.3 L ABG Data ABG results: ABG 05/19/24 05/19/24 05/19/24 04:53 05:00 06:01 Specimen Type ART ART ART Sample Site Art Line Art Line R Brach pH 7.02 L* 6.95 L* 7.17 L* Bicarbonate Actual 9.3 L 8.5 L 11.1 L Total CO2 10 10 12 Base Excess -22 L -24 L -18 L O2 Saturation 93 L 91 L 92 L O2 % 15.0 15.0 8.0 ABG pCO2 36.3 39.0 30.3 L ABG pO2 95 97 79 Chalo Test Positive O2 Delivery Device HFNC HFNC HFNC Vent Mode Not entered Not entered Not entered Crit Call To/Read Back Yes Yes Yes Blood Gas Notified Whom de diane willard Blood Gas Notified Time 04:54:48 06:02:49 Imaging Radiology Impression Abdomen/Pelvis CT 05/18/24 15:30 IMPRESSION: Isodense of fluid and inflammation in the right hemipelvis and right hemiabdomen likely due to hemorrhage. There is no focal hematoma or active bleeding identified. There is a small collection of gas in the mesentery of the anterior right hemipelvis. Electronically Signed: Fredis Torres MD at 17:29 EDT , ADDENDUM: 05/18/24 [id number] IMPRESSION: Isodense of fluid and inflammation in the right hemipelvis and right hemiabdomen likely due to hemorrhage. There is no focal hematoma or active bleeding identified. There is a small collection of gas in the mesentery of the anterior right hemipelvis. N.B. : The above Results were Read Back by Fredis Torres MD to Mariposa Gabriel RN, and understanding confirmed on 05/18/2024 18:38:12 (ET). Electronically Signed: Fredis Torres MD at 17:29 EDT , Echocardiogram 05/18/24 15:37 Interpretation Summary The estimated ejection fraction is 60-65 %. Unable to assess diastolic dysfunction. Mild (1+) aortic valve insufficiency. Ordering Physician: Tiago Goldberg Referring Physician: Tiago Goldberg Performed By: Paul Ta RCS Chest X-Ray 05/18/24 17:40 IMPRESSION: No acute pulmonary abnormality. Right jugular catheter in good position. Electronically Signed: Fredis Torres MD at 18:22 EDT , Chest/Abdomen/Pelvis CT 05/19/24 04:53 IMPRESSION: Right greater left retroperitoneal hemorrhage without significant change from May 18, 2024. Redemonstration of bilateral inguinal hernias with increased inflammatory stranding, possibly related to retroperitoneal hemorrhage. Pancreatic body 2.1 cm indeterminate cystic lesion. Follow-up pancreatic protocol CT is recommended when clinically able if not stable on remote exams. Cholelithiasis. Nonobstructive nephrolithiasis. Electronically Signed: Tien Sepulveda MD at 6:24 EDT , Charges/Coding Procedures Hospitalists Procedures: [id number] Critical Care 1st Hr
[2024-05-19] MEDS: Vasopressin 20 UNITS in 0.9% Normal Saline (50mL Bag) 24 ML 3 UNITS CONT INF (08:14)
--- NOTE | 2024-05-19 08:20 | PCM.OP.PRO ---
Procedure Report Date of Procedure: 05/19/24 Arterial Line Indication: Hemorrhagic shock Consent was obtained from: A time-out was completed verifying correct patient, procedure, site, positioning, and special equipment if applicable. Chalo's test was performed to ensure adequate perfusion. The patient's right wrist was prepped and draped in the sterile fashion. An 18-gauge arrow arterial line was introduced into the radial artery. The catheter was threaded over the guidewire and the needle was removed with the appropriate pulsatile blood return. The catheter was then sutured in place to the skin and a sterile dressing applied. Perfusion to the extremity distal to the point of catheter insertion was checked and found to be adequate. ULTRASOUND GUIDANCE STATEMENT (Vascular Access): I perform ultrasound image acquisition and interpretation for needle placement during this procedure. The vessel was identified and found to be free of thrombosis by compression technique. A safe point of entry was marked at the skin and then angle for access was determined. The needle was guided by obtaining free-flowing fluid and by real-time visualization. Procedures Hospitalists Procedures: [id number] Insertion Catheter Artery
[2024-05-19 08:21] LABS: Lactic Acid 1.6 mmol/L (0.4-1.9)
[2024-05-19 08:24] LABS: Anion Gap 11 (5-15); BUN 136 mg/dL (7-18); BUN/Creat Ratio 33.8 RATIO (10-20); Calcium,Total 7.6 mg/dL (8.5-10.1); Chloride 117 mmol/L (98-107); Creatinine, Serum 4.02 mg/dL (0.70-1.30); EST Glomerular Filtration Rate 15 mL/min (>60); Est Glom Filt Rate - Afr Amer 18 mL/min (>60); Estimated Creatinine Clearance 12.12 ml/min; Glucose 231 mg/dL (74-106); Potassium 7.1 mmol/L (3.5-5.1); Sodium Level 143 mmol/L (136-145)
[2024-05-19 08:26] LABS: Procalcitonin 4.16 ng/mL (0.00-0.09)
[2024-05-19] MEDS: Calcium Gluconate 1 GM/10 ML Vial IVP (08:55)
[2024-05-19] MEDS: Meropenem 500 MG in 0.9% Normal Saline (50mL MB+) 50 ML 100 MG IV (09:00)
[2024-05-19] MEDS: Insulin Lispro 10 UNIT in Syringe 0 ML 6 UNIT IV (09:15)
[2024-05-19] MEDS: Dextrose 10%-Water 250 ML 999 ML IV (09:50)
--- NOTE | 2024-05-19 09:57 | CASEMGMT ---
RN CM Assessment Face to Face with patient for initial transition planning/care coordination assessment. Pt is currently confused and unable to answer this RN CM questions for assessment. TC to pt (Miriam) who is agreeable to answering this RN CM questions. Care providers, pharmacy, and demographics verified. Admitting dx: Lt Ankle Ulcer LACE Strata: 2 PCP: Wale Vasquez Specialists: Candi (Podiatry), Ifrah (Nephro - Larsen), Robel (Oncology), Rich (Dermatology) Preferred Pharmacy: [facility] Insurance: [employer] Prescription Benefit: Yes LNOK: Miriam Romero (W), Liam Romero (Son) Living Arrangements: Pt lives with his in a single story home with 4 steps to enter with handrails that were just put in ADLs/IADLs: Pt states that she assists the pt with steps at home. Otherwise independent at baseline Transportation: Pt does not drive. Pt states that the pt normally drives. Pt states that nondenominational friends are able to assist with transportation DME: Continuous blood glucose monitor. Pt states that the pt does not have an insulin pump. Pt also has a cane, FWW, Grab bars, BP Monitor, and pulse ox. Pt states that the pt has a history of home oxygen use through [facility]. Pt states that if the pt qualifies for home oxygen again that they would prefer to go through [facility] and declines a list. HHC/SNF: Hx of HHC and SNF out of [place] 1-2 years ago Plan: TBD. Per ICU rounds, PT is to be held today. Anticipate home with HHC and oxygen vs SNF. CM and SW to follow. Griffin Chiu RN, CM
[2024-05-19] MEDS: Pantoprazole Sodium 40 MG in 0.9% Normal Saline (100mL MB+) 100 ML 330 MG IV (10:54)
[2024-05-19 11:04] LABS: Mucous, Urine 0 SEEN /hpf (<or=2+); Red Blood Cells-Urine 0 SEEN /hpf (0-5); Squamous Epithelial Cells - UA 0 SEEN /hpf (0-5)
[2024-05-19 11:08] LABS: Color, Urine Yellow (Yellow); Glucose, Dipstick Normal (Normal); Ketone-Dipstick 5 mg/dl (Negative); Leukocyte Esterase-Dipstick 500 /ul (Negative); Nitrite-Dipstick Positive (Negative); Occult Blood-Urine 150 /ul (Negative); Protein-Dipstick 500 mg/dl (Negative); Specific Gravity, Urine 1.025 (1.002-1.030); Urine Bilirubin Dipstick Negative (Negative); Urine Clarity Turbid (Clear); Urine Urobilinogen Normal (Normal)
[2024-05-19 11:13] LABS: Bacteria 3+ /hpf (None Seen)
[2024-05-19 11:14] LABS: White Blood Cells 50-100 SEEN /hpf (0-5)
--- NOTE | 2024-05-19 11:30 | CON.PCM.RE_ITS ---
Assessment & Plan Assessment/Plan (1) Hemorrhagic shock: (2) Retroperitoneal hemorrhage: (3) DORIS (acute kidney injury): (4) Hyperkalemia: (5) CKD (chronic kidney disease) stage 4, GFR 15-29 ml/min: PLAN: Plan This is an 84-year-old male with past medical history significant for significant peripheral artery disease, hypertension, CKD stage IV, history of nonhealing wounds of bilateral lower extremities with arterial insufficiency who underwent aortogram with bilateral lower extremity runoff yesterday per Dr. Goldberg, after procedure patient became significantly hypotensive without response to IV fluids, CT of abdomen and pelvis demonstrated retroperitoneal hemorrhage, hemoglobin dropped, patient admitted to ICU, received multiple units PRBC and is currently on Levophed and vasopressin. Nephrology consulted in view of history of CKD stage IV now with DORIS and hyperkalemia, metabolic acidosis. Creatinine was 3.12 mg/dl yesterday and today creatinine is up to 4.02/BUN 136, bicarb is dropping, currently 15, potassium is rising, currently 7.1. Near euvolemic DORIS likely secondary to ATN from hemorrhagic shock, hypotension. This morning patient received calcium gluconate, D50, insulin and bicarb. Patient is heading towards renal replacement therapy, likely will need CRRT. I had lengthy discussion with patient's , Miriam via phone conversation and discussed moving forward with CRRT, also discussed risks and benefits of CRRT, temporary hemodialysis line placement, as well as not doing any type of hemodialysis. Miriam is in agreement with moving forward with CRRT. Patient will need temporary hemodialysis line placed and then we will start CRRT. Will give 2 A of bicarb now. Conway placed for accurate urine output measurement. Patient is not hypervolemic, chest x-ray yesterday no consolidation or edema. Urine output today so far 170 mL. Hemoglobin is 6.9 this morning, going to repeat hgb to see if starting to level off. Repeat CT this morning showed no significant change of hemorrhage from yesterday. We will continue to monitor for renal recovery. Thank you for allowing us to participate in the care of Mr. Lacy, further orders forthcoming as hospitalization evolves. HPI Consult Data Date of Consult: 05/19/24 HPI Narrative HPI Narrative: ALY LACY, is a 84 M with past medical history significant for significant peripheral artery disease, hypertension, CKD stage IV, history of nonhealing wounds of bilateral lower extremities with arterial insufficiency who underwent aortogram with bilateral lower extremity runoff yesterday per Dr. Goldberg. Patient tolerated the procedure however afterward he became significantly hypotensive unresponsive to IV fluids, went for stat CT of abdomen pelvis which revealed retroperitoneal bleed, patient was admitted to ICU for further evaluation and treatment. Nephrology consulted as patient has history of CKD, now with DORIS and hyperkalemia. Patient is not alert and oriented. Information is gathered from the chart. I also spoke with patient's Miriam. Patient follows with Dr. Rg in the [place] office for history of CKD and was seen about 2 weeks ago, eGFR then was 17 mL/min. Patient has history of chronic hyperkalemia and takes Kayexalate 3 times weekly per patient's . [facility] Medical History (Updated 05/19/24 @ 11:38 by DAV Colon) Diabetes Hypertension Home Medications ?Medication ?Instructions ?Recorded ?Last Taken ?Type clopidogrel 75 mg tablet 75 mg PO DAILY 04/03/15 05/18/24 History latanoprost 0.005 % eye drops 1 drp QHS 04/03/15 Unknown History metoprolol succinate 25 mg 50 mg PO DAILY . 04/03/15 05/18/24 History tablet,extended release 24 hr simvastatin 40 mg tablet 40 mg PO QHS 04/03/15 Unknown History sucralfate 1 gram tablet 2 g PO BID . 04/03/15 05/18/24 History tamsulosin 0.4 mg capsule 0.8 mg PO BID . 04/03/15 Unknown History apremilast 30 mg tablet (Otezla) 30 mg PO DAILY 02/05/16 Unknown History ferrous sulfate 325 mg (65 mg 325 mg PO DAILY 03/08/24 Unknown History iron) tablet (FeroSul) glipizide 2.5 mg tablet, extended 2.5 mg PO BID 03/08/24 Unknown History release 24 hr sodium polystyrene sulfonate 15 60 ml PO .3x week . 03/08/24 Unknown History gram-sorbitol 20 gram/60 mL oral susp (SPS (with sorbitol)) timolol maleate 0.5 % eye drops 1 drp ophthalmic (eye) BID . 03/08/24 Unknown History cetirizine 10 mg tablet (Zyrtec) 10 mg PO QDAY PRN . 05/05/24 Unknown History cobalamine combinations capsule cap PO 05/05/24 Unknown History duloxetine 20 mg capsule,delayed 30 mg PO DAILY . 05/05/24 Unknown History release (Cymbalta) gabapentin 100 mg capsule 400 mg PO TID 05/05/24 05/18/24 History insulin glargine 100 unit/mL 18 unit subcut QPM . 05/05/24 Unknown History subcutaneous cartridge insulin lispro 100 unit/mL 1 sliding scale dose subcut 05/05/24 Unknown History subcutaneous pen USEASDIRECTD . brimonidine tartrate 1 drp BID . 05/18/24 Unknown History calcium 600 mg capsule 600 mg PO DAILY . 05/18/24 Unknown History cyanocobalamin (vitamin B-12) 500 500 mcg PO DAILY . 05/18/24 Unknown History mcg tablet (Vitamin B-12) montelukast 10 mg tablet 10 mg PO DAILY . 05/18/24 Unknown History (Singulair) Allergy/AdvReac Type Severity Reaction Status Date / Time latex Allergy Intermediate Rash Verified 05/05/24 14:37 penicillin Allergy Intermediate Unknown Verified 05/05/24 14:37 tramadol Allergy Mild Nausea Verified 05/05/24 14:37 Surgical History Hx of cataract surgery (~1996) Social History Smoking Status: Never smoker ROS ROS Narrative Unable to complete Physical Exam Narrative Alert to name, confused to time and place S1, S2, RRR Lungs clear Abdomen soft, rounded No edema Indwelling Conway with scant yellow urine in Lab / Micro Data 05/19/24 06:30 05/19/24 07:05 Labs: Laboratory Results - last 24 hr 05/18/24 09:46: MCV 94.6 H, MCHC 29.5 L 05/18/24 13:46: Activated Clotting Time 226 H 05/18/24 14:28: POC Glucose 84 05/18/24 15:25: WBC 9.8, RBC 2.46 L, Hgb 6.8 L, Hct 24.0 L, MCV 97.6 H, MCH 27.6, MCHC 28.3 L, RDW Std Deviation 65.8 H, RDW Coeff of Chucky 19.0 H, Plt Count 179, MPV 10.8, Immature Gran % (Auto) 0.400, Neut % (Auto) 45.9 L, Lymph % (Auto) 37.7, [place] % (Auto) 9.9, Eos % (Auto) 5.8 H, Baso % (Auto) 0.3, Absolute Neuts (auto) 4.5, Absolute Lymphs (auto) 3.68, Nucleated RBC % 0, Differential Comment SCANNED, Anisocytosis 2+, Ovalocytes RARE, Sodium 146 H, Potassium 5.1, Chloride 125 H, Carbon Dioxide 17.0 L, Anion Gap 4 L, BUN 110 H*, Creatinine 2.97 H, Estim Creat Clear Calc 16.29, Est GFR (MDRD) Af Amer 26 L, Est GFR (MDRD) Non-Af 22 L, BUN/Creatinine Ratio 37.0 H, Glucose 124 H, Calcium 7.5 L, P hosphorus 5.0 H, Magnesium 1.6, Troponin I High Sens 29 05/18/24 16:25: Blood Type A POSITIVE, Antibody Screen POSITIVE, Antibody Identification ANTI-LITTLE c 05/18/24 16:25: Antibody Identification ANTI-LITTLE c, Antigen Identification LITTLE c ANTIGEN - NEGATIVE, Crossmatch See Detail 05/18/24 19:31: POC Glucose 113 H 05/18/24 22:49: Hgb 7.3 L, Hct 25.3 L 05/19/24 00:21: POC Glucose 145 H 05/19/24 03:08: Hgb 7.1 L, Hct 24.3 L 05/19/24 04:44: POC Glucose 161 H 05/19/24 06:30: WBC 24.7 H, RBC 2.46 L, Hgb 6.9 L, Hct 22.7 L, MCV 92.3 D, MCH 28.0, MCHC 30.4 L D, RDW Std Deviation 61.6 H, RDW Coeff of [place] 18.6 H, Plt Count 186, MPV 10.6, Immature Gran % (Auto) 1.300 H, Neut % (Auto) 85.3 H, Lymph % (Auto) 6.4 L, [place] % (Auto) 6.8, Eos % (Auto) 0.0, Baso % (Auto) 0.2, Absolute Neuts (auto) 21.0 H, Absolute Lymphs (auto) 1.58, Nucleated RBC % 0.1, Differential Comment , Diff Path Review December foll, Sodium 144, Potassium 7.2 H*, Chloride 116 H, Carbon Dioxide 18.0 L, Anion Gap 10, BUN 121 H*, Creatinine 3.98 H, Estim Creat Clear Calc 12.25, Est GFR (MDRD) Af Amer 19 L, Est GFR (MDRD) Non-Af 15 L, BUN/Creatinine Ratio 30.4 H, Glucose 230 H, Calcium 7.3 L 05/19/24 07:05: Sodium 143, Potassium 7.1 H*, Chloride 117 H, Carbon Dioxide 15.0 L, Anion Gap 11, BUN 136 H*, Creatinine 4.02 H, Estim Creat Clear Calc 12.12, Est GFR (MDRD) Af Amer 18 L, Est GFR (MDRD) Non-Af 15 L, BUN/Creatinine Ratio 33.8 H, Glucose 231 H, Calcium 7.6 L 05/19/24 07:42: Lactic Acid 1.6, Procalcitonin 4.16 H 05/19/24 10:57: Urine Color Yellow, Urine Clarity Turbid, Urine pH 6.0, Ur Specific [place] 1.025, Urine Protein 500 H, Urine Glucose (UA) Normal, Urine Ketones 5 H, Urine Occult Blood 150 H, Urine Nitrite Positive H, Urine Bilirubin Negative, Urine Urobilinogen Normal, Ur Leukocyte Esterase 500 H, Urine RBC 0 SEEN, Urine WBC 50-100 SEEN, Ur Squamous Epith Cells 0 SEEN, Urine Bacteria 3+, Urine Mucus 0 SEEN ABG Data ABG results: ABG 05/19/24 05/19/24 05/19/24 04:53 05:00 06:01 Specimen Type ART Cancelled ART Sample Site Art Line Cancelled R Brach pH 7.02 L* Cancelled 7.17 L* Bicarbonate Actual 9.3 L Cancelled 11.1 L Total CO2 10 Cancelled 12 Base Excess -22 L Cancelled -18 L O2 Saturation 93 L Cancelled 92 L O2 % 15.0 Cancelled 8.0 ABG pCO2 36.3 Cancelled 30.3 L ABG pO2 95 Cancelled 79 Chalo Test Cancelled Respiration Rate Cancelled O2 Delivery Device HFNC Cancelled HFNC Liter Flow Cancelled Minute Volume Cancelled Vent Mode Not entered Cancelled Not entered Inspiratory Time Cancelled Expiratory Time Cancelled Tidal Volume Cancelled Mean Airway Pressure Cancelled POC PEEP Cancelled Peak Inspir Pressure Cancelled POC Pressure Suppt Cancelled Pressure Control Cancelled Pressure High Cancelled Pressure Low Cancelled Time High Cancelled Time Low Cancelled EPAP Cancelled IPAP Cancelled Blood Gas Comments Cancelled Crit Call To/Read Back Yes Cancelled Yes Blood Gas Notified Whom de diane Cancelled de sharda Blood Gas Notified Time 04:54:48 Cancelled 06:02:49 Clinical Comments Cancelled Imaging Radiology Impression Abdomen/Pelvis CT 05/18/24 15:30 IMPRESSION: Isodense of fluid and inflammation in the right hemipelvis and right hemiabdomen likely due to hemorrhage. There is no focal hematoma or active bleeding identified. There is a small collection of gas in the mesentery of the anterior right hemipelvis. Electronically Signed: Fredis Torres MD at 17:29 EDT , ADDENDUM: 05/18/24 1850 IMPRESSION: Isodense of fluid and inflammation in the right hemipelvis and right hemiabdomen likely due to hemorrhage. There is no focal hematoma or active bleeding identified. There is a small collection of gas in the mesentery of the anterior right hemipelvis. N.B. : The above Results were Read Back by Fredis Torres MD to Mariposa Gabriel RN, and understanding confirmed on 05/18/2024 18:38:12 (ET). Electronically Signed: Fredis Torres MD at 17:29 EDT , Echocardiogram 05/18/24 15:37 Interpretation Summary The estimated ejection fraction is 60-65 %. Unable to assess diastolic dysfunction. Mild (1+) aortic valve insufficiency. Ordering Physician: Taigo Goldberg Referring Physician: Tiago Goldberg Performed By: Paul Ta RCS Chest X-Ray 05/18/24 17:40 IMPRESSION: No acute pulmonary abnormality. Right jugular catheter in good position. Electronically Signed: Fredis Torres MD at 18:22 EDT , Chest/Abdomen/Pelvis CT 05/19/24 04:53 IMPRESSION: Right greater left retroperitoneal hemorrhage without significant change from May 18, 2024. Redemonstration of bilateral inguinal hernias with increased inflammatory stranding, possibly related to retroperitoneal hemorrhage. Pancreatic body 2.1 cm indeterminate cystic lesion. Follow-up pancreatic protocol CT is recommended when clinically able if not stable on remote exams. Cholelithiasis. Nonobstructive nephrolithiasis. Electronically Signed: Tien Sepulveda MD at 6:24 EDT ,
[2024-05-19 11:51] LABS: Bedside Glucose 232 mg/dL (74-106)
--- NOTE | 2024-05-19 12:04 | PCM.PN.SRG ---
Subjective Subjective Patient was seen this morning in bed. He was alert and oriented only to himself, confused. He is currently being transfused, blood prided been ordered last night but had to be obtained from outside blood bank and transfusion initiated until this morning. His hemoglobin did remain overall stable overnight, 6.9 this morning. He unfortunately had a rapid response team called this morning due to vomiting and lethargy with concern for aspiration. He did have a repeat CT this morning which showed stable retroperitoneal hematoma. He was started on empiric antibiotics. His kidney function has worsened this morning with creatinine 4.02 and GFR 15. Nephrology has been consulted. This morning left femoral artery sheath still in place from angiogram yesterday. Objective Data Objective Data Vital Signs: Vital Signs Temp Pulse Resp BP Pulse Ox O2 Del Method O2 Flow Rate 97.9 F 78 26 H 132/56 H 100 Nasal Cannula 5 05/19/24 10:15 05/19/24 11:00 05/19/24 11:00 05/19/24 11:00 05/19/24 11:00 05/19/24 11:00 05/19/24 11:00 Oxygen Flow Rate (L/min) 5 Oxygen Delivery Method Nasal Cannula Weight: 155 lb 3.287 oz Body Mass Index (BMI) 24.9 Intake & Output: Intake and Output for Last 24 Hours 05/17/24 05/18/24 05/19/24 23:59 23:59 23:59 Intake Total 207.08 / 218.81 1699.75 / 1699.75 Output Total 170 / 170 Balance 207.08 / 68.81 1529.75 / 1529.75 Lab / Micro Data 05/19/24 15:30 05/19/24 07:05 Labs: Laboratory Results - last 24 hr 05/18/24 09:46: MCV 94.6 H, MCHC 29.5 L 05/18/24 13:46: Activated Clotting Time 226 H 05/18/24 14:28: POC Glucose 84 05/18/24 15:25: WBC 9.8, RBC 2.46 L, Hgb 6.8 L, Hct 24.0 L, MCV 97.6 H, MCH 27.6, MCHC 28.3 L, RDW Std Deviation 65.8 H, RDW Coeff of Chucky 19.0 H, Plt Count 179, MPV 10.8, Immature Gran % (Auto) 0.400, Neut % (Auto) 45.9 L, Lymph % (Auto) 37.7, [place] % (Auto) 9.9, Eos % (Auto) 5.8 H, Baso % (Auto) 0.3, Absolute Neuts (auto) 4.5, Absolute Lymphs (auto) 3.68, Nucleated RBC % 0, Differential Comment SCANNED, Anisocytosis 2+, Ovalocytes RARE, Sodium 146 H, Potassium 5.1, Chloride 125 H, Carbon Dioxide 17.0 L, Anion Gap 4 L, BUN 110 H*, Creatinine 2.97 H, Estim Creat Clear Calc 16.29, Est GFR (MDRD) Af Amer 26 L, Est GFR (MDRD) Non-Af 22 L, BUN/Creatinine Ratio 37.0 H, Glucose 124 H, Calcium 7.5 L, Phosphorus 5.0 H, Magnesium 1.6, Troponin I High Sens 29 05/18/24 16:25: Blood Type A POSITIVE, Antibody Screen POSITIVE, Antibody Identification ANTI-LITTLE c 05/18/24 16:25: Antibody Identification ANTI-LITTLE c, Antigen Identification LITTLE c ANTIGEN - NEGATIVE, Crossmatch See Detail 05/18/24 19:31: POC Glucose 113 H 05/18/24 22:49: Hgb 7.3 L, Hct 25.3 L 05/19/24 00:21: POC Glucose 145 H 05/19/24 03:08: Hgb 7.1 L, Hct 24.3 L 05/19/24 04:44: POC Glucose 161 H 05/19/24 06:30: WBC 24.7 H, RBC 2.46 L, Hgb 6.9 L, Hct 22.7 L, MCV 92.3 D, MCH 28.0, MCHC 30.4 L D, RDW Std Deviation 61.6 H, RDW Coeff of Chucky 18.6 H, Plt Count 186, MPV 10.6, Immature Gran % (Auto) 1.300 H, Neut % (Auto) 85.3 H, Lymph % (Auto) 6.4 L, [place] % (Auto) 6.8, Eos % (Auto) 0.0, Baso % (Auto) 0.2, Absolute Neuts (auto) 21.0 H, Absolute Lymphs (auto) 1.58, Nucleated RBC % 0.1, Differential Comment , Diff Path Review December, Sodium 144, Potassium 7.2 H*, Chloride 116 H, Carbon Dioxide 18.0 L, Anion Gap 10, BUN 121 H*, Creatinine 3.98 H, Estim Creat Clear Calc 12.25, Est GFR (MDRD) Af Amer 19 L, Est GFR (MDRD) Non-Af 15 L, BUN/Creatinine Ratio 30.4 H, Glucose 230 H, Calcium 7.3 L 05/19/24 07:05: Sodium 143, Potassium 7.1 H*, Chloride 117 H, Carbon Dioxide 15.0 L, Anion Gap 11, BUN 136 H*, Creatinine 4.02 H, Estim Creat Clear Calc 12.12, Est GFR (MDRD) Af Amer 18 L, Est GFR (MDRD) Non-Af 15 L, BUN/Creatinine Ratio 33.8 H, Glucose 231 H, Calcium 7.6 L 05/19/24 07:42: Lactic Acid 1.6, Procalcitonin 4.16 H 05/19/24 10:57: Urine Color Yellow, Urine Clarity Turbid, Urine pH 6.0, Ur Specific [place] 1.025, Urine Protein 500 H, Urine Glucose (UA) Normal, Urine Ketones 5 H, Urine Occult Blood 150 H, Urine Nitrite Positive H, Urine Bilirubin Negative, Urine Urobilinogen Normal, Ur Leukocyte Esterase 500 H, Urine RBC 0 SEEN, Urine WBC 50-100 SEEN, Ur Squamous Epith Cells 0 SEEN, Urine Bacteria 3+, Urine Mucus 0 SEEN 05/19/24 11:33: POC Glucose 232 H ABG Data ABG results: ABG 05/19/24 05/19/24 05/19/24 04:53 05:00 06:01 Specimen Type ART Cancelled ART Sample Site Art Line Cancelled R Brach pH 7.02 L* Cancelled 7.17 L* Bicarbonate Actual 9.3 L Cancelled 11.1 L Total CO2 10 Cancelled 12 Base Excess -22 L Cancelled -18 L O2 Saturation 93 L Cancelled 92 L O2 % 15.0 Cancelled 8.0 ABG pCO2 36.3 Cancelled 30.3 L ABG pO2 95 Cancelled 79 Chalo Test Cancelled Respiration Rate Cancelled O2 Delivery Device HFNC Cancelled HFNC Liter Flow Cancelled Minute Volume Cancelled Vent Mode Not entered Cancelled Not entered Inspiratory Time Cancelled Expiratory Time Cancelled Tidal Volume Cancelled Mean Airway Pressure Cancelled POC PEEP Cancelled Peak Inspir Pressure Cancelled POC Pressure Suppt Cancelled Pressure Control Cancelled Pressure High Cancelled Pressure Low Cancelled Time High Cancelled Time Low Cancelled EPAP Cancelled IPAP Cancelled Blood Gas Comments Cancelled Crit Call To/Read Back Yes Cancelled Yes Blood Gas Notified Whom de diane Cancelled de sharda Blood Gas Notified Time 04:54:48 Cancelled 06:02:49 Clinical Comments Cancelled Radiography Diagnostic Testing: Radiology Impression Abdomen/Pelvis CT 05/18/24 15:30 IMPRESSION: Isodense of fluid and inflammation in the right hemipelvis and right hemiabdomen likely due to hemorrhage. There is no focal hematoma or active bleeding identified. There is a small collection of gas in the mesentery of the anterior right hemipelvis. Electronically Signed: Fredis Torres MD at 17:29 EDT , ADDENDUM: 05/18/24 1850 IMPRESSION: Isodense of fluid and inflammation in the right hemipelvis and right hemiabdomen likely due to hemorrhage. There is no focal hematoma or active bleeding identified. There is a small collection of gas in the mesentery of the anterior right hemipelvis. N.B. : The above Results were Read Back by Fredis Torres MD to Mariposa Gabriel RN, and understanding confirmed on 05/18/2024 18:38:12 (ET). Electronically Signed: Fredis Torres MD at 17:29 EDT , Echocardiogram 05/18/24 15:37 Interpretation Summary The estimated ejection fraction is 60-65 %. Unable to assess diastolic dysfunction. Mild (1+) aortic valve insufficiency. Ordering Physician: Tiago Goldberg Referring Physician: Tiago Goldberg Performed By: Paul Ta RCS Chest X-Ray 05/18/24 17:40 IMPRESSION: No acute pulmonary abnormality. Right jugular catheter in good position. Electronically Signed: Fredis Torres MD at 18:22 EDT , Chest/Abdomen/Pelvis CT 05/19/24 04:53 IMPRESSION: Right greater left retroperitoneal hemorrhage without significant change from May 18, 2024. Redemonstration of bilateral inguinal hernias with increased inflammatory stranding, possibly related to retroperitoneal hemorrhage. Pancreatic body 2.1 cm indeterminate cystic lesion. Follow-up pancreatic protocol CT is recommended when clinically able if not stable on remote exams. Cholelithiasis. Nonobstructive nephrolithiasis. Electronically Signed: Tien Sepulveda MD at 6:24 EDT , Physical Exam Const alert Orientation / Consciousness: confused; Negative for oriented to place or oriented to time HEENT normocephalic, head/scalp atraumatic, hearing grossly normal bilaterally, external ears normal and external nose normal Eyes EOMs intact bilaterally General Eye: normal appearance of both eyes Neck General: normal visual inspection and trachea midline Resp normal respiratory effort, no retractions and no use of accessory muscles Cardio regular rate and regular rhythm Extremity Extremity Narrative: Dry dressings in place to bilateral feet/lower legs No significant edema Neuro moves all extremities Sensorium / Orientation: awake, alert, oriented to person and confused; Negative for oriented to place Psych affect normal Attitude: calm Assessment & Plan Assessment/Plan (1) Other specified peripheral vascular diseases: (2) Retroperitoneal hemorrhage: PLAN: Plan Right radial art line was placed this morning so the left femoral sheath was removed. Hemoglobin stable this morning and repeat CT showed stable retroperitoneal hemorrhage, no apparent active bleeding. Blood products are being transfused with plans to recheck H&H at completion. He remains on pressor support. Nephrology was consulted and recommending dialysis at this time. Temporary dialysis catheter to be placed. I did contact patient's [employer] via phone today. All of her questions and concerns were addressed to her satisfaction.
[2024-05-19] MEDS: Heparin 10,000 UNITS/10 ML Vial 1000 UNITS IV (12:45)
--- NOTE | 2024-05-19 13:15 | RAD_ITS ---
STUDY: X-RAY CHEST REASON FOR EXAM: Male, 84 years old. Line placement TECHNIQUE: Single AP portable view of the chest. COMPARISON: Comparison is made with prior study dated May 18, 2024. FINDINGS: A right-sided central catheter has been placed with the tip at the junction of the superior vena cava and right atrium. EKG electrodes are seen. Mild increased markings at the lung bases suggestive of atelectasis. There is no demonstrated pleural abnormality. Normal size heart. A left-sided dual-chamber pacemaker is seen. Normal mediastinum and quan. Normal visualized pulmonary arteries. There is atherosclerotic calcification of the aortic arch with tortuosity. There are diffuse degenerative changes of the visualized thoracic spine. Normal visualized ribs, clavicles, and shoulders. There is no demonstrated abnormality of the visualized soft tissue structures of the upper abdomen. RAD/CXR for Line Placement IMPRESSION: The tip of the right central catheter is at the junction of the superior vena cava and right atrium. Mild increased markings at the lung bases suggests atelectasis. Electronically Signed: Warren Sierra MD at 13:42 EDT ,
[2024-05-19 14:09] LABS: Pathologist Review Reviewed
--- NOTE | 2024-05-19 14:31 | PCM.OP.PRO ---
Procedure Report Date of Procedure: 05/19/24 Temporary Hemodialysis Catheter Indication: Need for dialysis Consent was obtained from: A time-out was completed verifying correct patient, procedure, site, positioning, and special equipment if applicable. The patient was placed in a dependent position appropriate for hemodialysis line placement based on the vein to be cannulated. The patient's right neck was prepped and draped in the sterile fashion. 1% Lidocaine was used and emphasized the surrounding skin area. A 16 cm catheter was introduced into the right IJ, following sequential dilations, using the Seldinger technique and under ultrasound guidance. The catheter was threaded smoothly over the guidewire and appropriate blood return was obtained. Each lumen of the catheter was evacuated of air and flushed with sterile saline. The catheter was then sutured in place to the skin and a sterile dressing applied. Chest x-ray to confirm appropriate positioning is pending. ULTRASOUND GUIDANCE STATEMENT (Vascular Access): I performed an ultrasound image acquisition and interpretation for needle placement during the procedure. The vessel was identified and was found to be free of thrombosis by compression technique. A safe point of entry was marked at the skin in an angle for axis was determined. The needle was guided by obtaining free-flowing fluid and by real-time visualization. Procedures Hospitalists Procedures: 77008 Insert Non-tunnel CV Cath
--- NOTE | 2024-05-19 14:45 | CT_ITS ---
EXAM: CT HEAD WITHOUT INTRAVENOUS CONTRAST CLINICAL INDICATION: confusion TECHNIQUE: Multiple axial images were obtained of the head without intravenous contrast. This CT exam was performed using one or more of the following dose reduction techniques: automated exposure control, adjustment of the mA and/or kV according to patient size, and/or use of iterative reconstruction technique. COMPARISON: No relevant prior studies available. FINDINGS: BRAIN AND EXTRA-AXIAL SPACES: Questionable cortical infarct within the left cerebellum. Basilar cisterns are patent. No hemorrhage or mass effect. No acute ischemia. Areas of diminished white matter density noted within both cerebral hemispheres suggestive of chronic microvascular change. Prominence of the cortical sulci and ventricles related to volume loss change. BONES/JOINTS: Normal calvarium. SINUSES: No acute sinusitis. MASTOID AIR CELLS: Normal. Clear. CT/Brain/Head without Contrast IMPRESSION: 1. No acute intracranial abnormality. 2. Senescent changes. Electronically Signed: Amor Avina MD at 15:17 EDT ,
[2024-05-19 15:45] LABS: Hematocrit 29.6 % (40-54); Hemoglobin 9.3 g/dL (13.0-16.5)
--- NOTE | 2024-05-19 16:33 | PCM.OP.PRO ---
Procedure Report Date of Procedure: 05/19/24 The patient is an 84-year-old male who is critically ill in the intensive care unit. I was contacted by teaching young to assist with central line access. Patient presented to unique challenge for central line access as he has a right IJ temporary dialysis catheter which was placed earlier today. He has a left sided pacemaker and recently underwent vascular procedures involving both groins yesterday. I was contacted to assist with placement on line. We utilized ultrasound to evaluate the left groin. Although visualization was somewhat challenging, we felt that this would likely be the most appropriate place to insert a central line. Her other alternative that we considered was an intraosseous line. The left groin was prepped and draped in the usual sterile manner. Ultrasound was utilized to identify the left femoral vein and artery. Unfortunately the artery seem to be lying superior to the vein. Using the ultrasound we are able to get a good view of the left femoral vein. Local anesthetic was then infiltrated. Then using the supplied needle and syringe, I was able to gain access to the left femoral vein. The blood return was a dark red, nonpulsatile, venous appearing blood return. The guidewire was then threaded easily. A #11 blade was then used to make a small skin incision at the entry point of the guidewire. A dilator was then threaded. A triple-lumen catheter was then threaded over the guidewire. The guidewire was then removed. The triple-lumen catheter was then sutured to the skin. All 3 ports flushed easily. 2 of the 3 ports fany back good blood return except for the brown port. A sterile dressing was then applied. He tolerated the procedure well. Procedures Hospitalists Procedures: 51748 Insert Non-tunnel CV Cath
--- NOTE | 2024-05-19 17:09 | PCM.PN.HOSP ---
Subjective Subjective Significant issues in the last 24 hours, culminating with a rapid response at 5 AM for possible aspiration Objective Data Objective Data Vital Signs: Vital Signs Temp Pulse Resp BP Pulse Ox O2 Del Method O2 Flow Rate 98.2 F 79 28 H 112/62 92 Nasal Cannula 4 05/19/24 16:00 05/19/24 17:00 05/19/24 17:00 05/19/24 17:00 05/19/24 17:00 05/19/24 17:00 05/19/24 17:00 Oxygen Flow Rate (L/min) 4 Oxygen Delivery Method Nasal Cannula Weight: 155 lb 3.287 oz Body Mass Index (BMI) 24.9 Intake & Output: Intake and Output for Last 24 Hours 05/18/24 05/19/24 05/20/24 03:59 03:59 03:59 Intake Total 359.51 / 406.41 3007.65 / 3007.65 Output Total 150 / 150 145 / 145 Balance 209.51 / 256.41 2862.65 / 2862.65 Lab / Micro Data 05/20/24 05:45 05/20/24 05:45 Labs: Laboratory Results - last 24 hr 05/18/24 16:25: Blood Type A POSITIVE, Antibody Screen POSITIVE, Antibody Identification ANTI-LITTLE c 05/18/24 16:25: Antibody Identification ANTI-LITTLE c, Antigen Identification LITTLE c ANTIGEN - NEGATIVE, Crossmatch See Detail 05/18/24 19:31: POC Glucose 113 H 05/18/24 22:49: Hgb 7.3 L, Hct 25.3 L 05/19/24 00:21: POC Glucose 145 H 05/19/24 03:08: Hgb 7.1 L, Hct 24.3 L 05/19/24 04:44: POC Glucose 161 H 05/19/24 06:30: WBC 24.7 H, RBC 2.46 L, Hgb 6.9 L, Hct 22.7 L, MCV 92.3 D, MCH 28.0, MCHC 30.4 L D, RDW Std Deviation 61.6 H, RDW Coeff of [place] 18.6 H, Plt Count 186, MPV 10.6, Immature Gran % (Auto) 1.300 H, Neut % (Auto) 85.3 H, Lymph % (Auto) 6.4 L, Boundary % (Auto) 6.8, Eos % (Auto) 0.0, Baso % (Auto) 0.2, Absolute Neuts (auto) 21.0 H, Absolute Lymphs (auto) 1.58, Nucleated RBC % 0.1, Differential Comment , Diff Path Review Reviewed, Sodium 144, Potassium 7.2 H*, Chloride 116 H, Carbon Dioxide 18.0 L, Anion Gap 10, BUN 121 H*, Creatinine 3.98 H, Estim Creat Clear Calc 12.25, Est GFR (MDRD) Af Amer 19 L, Est GFR (MDRD) Non-Af 15 L, BUN/Creatinine Ratio 30.4 H, Glucose 230 H, Calcium 7.3 L 05/19/24 07:05: Sodium 143, Potassium 7.1 H*, Chloride 117 H, Carbon Dioxide 15.0 L, Anion Gap 11, BUN 136 H*, Creatinine 4.02 H, Estim Creat Clear Calc 12.12, Est GFR (MDRD) Af Amer 18 L, Est GFR (MDRD) Non-Af 15 L, BUN/Creatinine Ratio 33.8 H, Glucose 231 H, Calcium 7.6 L 05/19/24 07:42: Lactic Acid 1.6, Procalcitonin 4.16 H 05/19/24 10:57: Urine Color Yellow, Urine Clarity Turbid, Urine pH 6.0, Ur Specific [place] 1.025, Urine Protein 500 H, Urine Glucose (UA) Normal, Urine Ketones 5 H, Urine Occult Blood 150 H, Urine Nitrite Positive H, Urine Bilirubin Negative, Urine Urobilinogen Normal, Ur Leukocyte Esterase 500 H, Urine RBC 0 SEEN, Urine WBC 50-100 SEEN, Ur Squamous Epith Cells 0 SEEN, Urine Bacteria 3+, Urine Mucus 0 SEEN 05/19/24 11:33: POC Glucose 232 H 05/19/24 15:30: Hgb 9.3 L, Hct 29.6 L ABG Data ABG results: ABG 05/19/24 05/19/24 05/19/24 04:53 05:00 06:01 Specimen Type ART Cancelled ART Sample Site Art Line Cancelled R Brach pH 7.02 L* Cancelled 7.17 L* Bicarbonate Actual 9.3 L Cancelled 11.1 L Total CO2 10 Cancelled 12 Base Excess -22 L Cancelled -18 L O2 Saturation 93 L Cancelled 92 L O2 % 15.0 Cancelled 8.0 ABG pCO2 36.3 Cancelled 30.3 L ABG pO2 95 Cancelled 79 Chalo Test Cancelled Respiration Rate Cancelled O2 Delivery Device HFNC Cancelled HFNC Liter Flow Cancelled Minute Volume Cancelled Vent Mode Not entered Cancelled Not entered Inspiratory Time Cancelled Expiratory Time Cancelled Tidal Volume Cancelled Mean Airway Pressure Cancelled POC PEEP Cancelled Peak Inspir Pressure Cancelled POC Pressure Suppt Cancelled Pressure Control Cancelled Pressure High Cancelled Pressure Low Cancelled Time High Cancelled Time Low Cancelled EPAP Cancelled IPAP Cancelled Blood Gas Comments Cancelled Crit Call To/Read Back Yes Cancelled Yes Blood Gas Notified Whom de diane Cancelled de sharda Blood Gas Notified Time 04:54:48 Cancelled 06:02:49 Clinical Comments Cancelled Radiography Diagnostic Testing: Radiology Impression Abdomen/Pelvis CT 05/18/24 15:30 IMPRESSION: Isodense of fluid and inflammation in the right hemipelvis and right hemiabdomen likely due to hemorrhage. There is no focal hematoma or active bleeding identified. There is a small collection of gas in the mesentery of the anterior right hemipelvis. Electronically Signed: Fredis Torres MD at 17:29 EDT , ADDENDUM: 05/18/24 1850 IMPRESSION: Isodense of fluid and inflammation in the right hemipelvis and right hemiabdomen likely due to hemorrhage. There is no focal hematoma or active bleeding identified. There is a small collection of gas in the mesentery of the anterior right hemipelvis. N.B. : The above Results were Read Back by Fredis Torres MD to Mariposa Gabriel RN, and understanding confirmed on 05/18/2024 18:38:12 (ET). Electronically Signed: Fredis Torres MD at 17:29 EDT , Chest X-Ray 05/18/24 17:40 IMPRESSION: No acute pulmonary abnormality. Right jugular catheter in good position. Electronically Signed: Fredis Torres MD at 18:22 EDT , Chest/Abdomen/Pelvis CT 05/19/24 04:53 IMPRESSION: Right greater left retroperitoneal hemorrhage without significant change from May 18, 2024. Redemonstration of bilateral inguinal hernias with increased inflammatory stranding, possibly related to retroperitoneal hemorrhage. Pancreatic body 2.1 cm indeterminate cystic lesion. Follow-up pancreatic protocol CT is recommended when clinically able if not stable on remote exams. Cholelithiasis. Nonobstructive nephrolithiasis. Electronically Signed: Tien Sepulveda MD at 6:24 EDT , Chest X-Ray 05/19/24 13:15 IMPRESSION: The tip of the right central catheter is at the junction of the superior vena cava and right atrium. Mild increased markings at the lung bases suggests atelectasis. Electronically Signed: Warren Sierra MD at 13:42 EDT , Brain CT 05/19/24 14:45 IMPRESSION: 1. No acute intracranial abnormality. 2. Senescent changes. Electronically Signed: Amor Avina MD at 15:17 EDT , Physical Exam Narrative General: Alert but drowsy, confused, Cooperative, No apparent distress HEENT: Atraumatic, PERRLA, EOMI, Normocephalic Oral: Moist Mucosa Neck: Supple, No JVD Lungs: Diminished, Normal air movement, scattered rhonchi, No wheeze, No rales Cardiovascular: Regular rate, Regular Rhythm, Normal S1, Normal S2, No murmurs Abdomen: Soft, Non Tender, Non-Distended, No Hepato-splenomegaly Extremities: No edema, Capillary Refill Less than 3 Seconds Skin: No rashes, No breakdown Musculoskeletal: No Tenderness to Palpation of Joints or Extremities Neurological: No focal neurological deficits Psych/Mental Status: Flat Assessment & Plan Assessment/Plan (1) Retroperitoneal hemorrhage: PLAN: Plan 1. Hemorrhagic shock secondary to acute blood loss anemia from retroperitoneal hemorrhage after an aortogram ? There is some difficulty getting blood because of his antibodies however we should be able to transfuse him today ? Will attempt access, he does have a right IJ but will need a dialysis catheter for CRRT given his hyperkalemia ? Appreciate mid level project manager assistance ? Leukocytosis is likely reactive to stress though we will start with antibiotic coverage secondary to the possible aspiration event this morning ? Continue with Levophed, we are able to wean slowly 2. DM2/CKD 4 ? Sliding scale insulin ? Accu-Cheks ? Monitor make adjustments as necessary ? Given his hyperkalemia we will proceed with CRRT, appreciate nephrology's assistance 3. BPH ? Stable ? Has [place] in place ? Once Levophed is off and he is more stable can restart Flomax 4. Depression ? Stable ? Continue his home medications when able DVT: SCDs Charges/Coding Visit Charges Inpatient E&M: 97544 Subs Hosp L2
[2024-05-19] MEDS: PUREFLOW B SOLUTION 2K 5,000 ML BAG 9 BAG PF (17:11)
[2024-05-19 18:28] LABS: Bedside Glucose 185 mg/dL (74-106)
[2024-05-19 18:36] LABS: Albumin, Serum 2.4 g/dL (3.2-5.0); BUN 111 mg/dL (7-18); BUN/Creat Ratio 28.5 RATIO (10-20); Calcium,Total 7.7 mg/dL (8.5-10.1); Chloride 114 mmol/L (98-107); EST Glomerular Filtration Rate 16 mL/min (>60); Est Glom Filt Rate - Afr Amer 19 mL/min (>60); Glucose 200 mg/dL (74-106); Phosphorus 5.1 mg/dL (2.5-4.9); Potassium 5.2 mmol/L (3.5-5.1); Sodium Level 143 mmol/L (136-145)
[2024-05-19] MEDS: Norepinephrine 8 MG in 0.9% Normal Saline (250mL Bag) 242 ML 18.8 MG CONT INF (18:43)
[2024-05-19] MEDS: LORazepam 2 MG/ML Syringe IV (19:03)
[2024-05-19] MEDS: PUREFLOW B SOLUTION 4K 5,000 ML BAG 9 BAG PF (20:06)
[2024-05-19] MEDS: Meropenem 1 GM in 0.9% Normal Saline (100mL MB+) 100 ML IV (20:21)
[2024-05-19] MEDS: 0.9% Normal Saline (250mL Bag) 250 ML 15 ML IV (20:26)
[2024-05-19 21:17] LABS: Hematocrit 29.4 % (40-54); Hemoglobin 9.5 g/dL (13.0-16.5)
[2024-05-20] VITALS (43 sets, daily range): BP systolic 72–130; BP diastolic 35–98; PULSE 59–95; RESP 18–30; TEMP 36.2–36.8; O2SAT 86–100; BMI 25.4
[2024-05-20] MEDS: Insulin Lispro 100 UNIT/ML INSULN.PEN SC ×2 (00:23→05:59)
[2024-05-20 00:37] LABS: Bedside Glucose 188 mg/dL (74-106)
[2024-05-20 00:43] LABS: Albumin, Serum 2.5 g/dL (3.2-5.0); BUN 76 mg/dL (7-18); BUN/Creat Ratio 27.2 RATIO (10-20); Chloride 111 mmol/L (98-107); Creatinine, Serum 2.79 mg/dL (0.70-1.30); EST Glomerular Filtration Rate 23 mL/min (>60); Est Glom Filt Rate - Afr Amer 28 mL/min (>60); Estimated Creatinine Clearance 17.47 ml/min; Glucose 213 mg/dL (74-106); Phosphorus 4.3 mg/dL (2.5-4.9); Potassium 5.4 mmol/L (3.5-5.1); Sodium Level 142 mmol/L (136-145)
--- NOTE | 2024-05-20 00:44 | NURSING ---
Pt pulled out right IJ yesterday for dayshift. Another right IJ was placed as a temporary dialysis catheter. Pt is on CRRT. Surgery was involved yesterday to place left femoral central line due to placement difficulties. Pt becoming agitated again saying, I need to pull these things out. Tried verbal deescalation. Pt still continuing to pull at lines. Bilateral soft wrist restraints applied for line safety. Dr. Lara notified of restraints.
[2024-05-20] MEDS: Meropenem 1 GM in 0.9% Normal Saline (100mL MB+) 100 ML IV ×3 (05:18→21:02)
[2024-05-20] MEDS: Norepinephrine 8 MG in 0.9% Normal Saline (250mL Bag) 242 ML 7.5 MG CONT INF (05:38)
[2024-05-20 06:06] LABS: Bedside Glucose 175 mg/dL (74-106)
[2024-05-20] MEDS: PUREFLOW B SOLUTION 4K 5,000 ML BAG 9 BAG PF (06:06)
[2024-05-20 06:35] LABS: Albumin, Serum 2.4 g/dL (3.2-5.0); BUN 53 mg/dL (7-18); BUN/Creat Ratio 23.8 RATIO (10-20); Calcium,Total 8.5 mg/dL (8.5-10.1); Chloride 108 mmol/L (98-107); Creatinine, Serum 2.23 mg/dL (0.70-1.30); EST Glomerular Filtration Rate 30 mL/min (>60); Est Glom Filt Rate - Afr Amer 36 mL/min (>60); Estimated Creatinine Clearance 21.85 ml/min; Glucose 190 mg/dL (74-106); Phosphorus 3.5 mg/dL (2.5-4.9); Sodium Level 138 mmol/L (136-145)
--- NOTE | 2024-05-20 06:50 | PCM.PN.INT ---
Assessment & Plan Assessment/Plan (1) Retroperitoneal hemorrhage: (2) Hemorrhagic shock: (3) Aspiration pneumonitis due to regurgitated gastric secretions: PLAN: Plan RECOMMENDATIONS: 1. Continue to wean Levophed to maintain mean arterial pressure at or above 60 mmHg. 2. Continue to monitor H&H and transfuse blood products as needed. 3. Continue empiric antimicrobial therapy. Check MRSA screen. 4. Continue CRRT per nephrology recommendations. 5. Patient to remain n.p.o., pending improvement in mental status. IMPRESSIONS: 1. Acute hemorrhagic shock secondary to retroperitoneal hemorrhage Continue current supportive measures including vasopressor support to maintain a mean arterial pressure at or above 60 mmHg. The patient has been transfused blood products and is improving from a hemodynamic perspective. Prior CT imaging completed demonstrated overall size stability in the size of the retroperitoneal hemorrhage. Previously, there was concern for an acute aspiration event. Therefore, the patient is also going to be continued on empiric antimicrobials. Cultures are currently pending. 2. Acute on chronic kidney disease Most likely ischemic ATN in the setting of #1. Continue supportive measures as outlined above. Plan to continue CRRT support per nephrology recommendations. 3. Acute metabolic encephalopathy I suspect that this is related to his current metabolic derangements, including uremia and low perfusion state. Recommend holding all sedating medications. The patient is to remain n.p.o. for now. CT head was unrevealing. 4. Peripheral vascular disease with nonhealing lower extremity wounds Continue ongoing supportive care per vascular surgery recommendations. Continue local wound care. 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 Continue sliding scale insulin coverage. The patient should remain n.p.o. for now. TIME: 37 minutes of critical care time, independent of procedures, was spent addressing the patient's acute hemorrhagic shock secondary to retroperitoneal hemorrhage, acute on chronic kidney disease, acute metabolic encephalopathy, peripheral vascular disease, review of all data and collaboration with the care team. Subjective Subjective The patient was seen and examined at the bedside this morning. Events from the last 24 hours have been reviewed. Late last evening I was contacted regarding possible seizure activity that the patient was exhibiting. He was ultimately treated with Ativan without any further episodes noted overnight. The patient remains on Levophed at 4 mcg/min to maintain hemodynamic stability. He has been tolerant of CRRT therapy. The patient's white blood cell count is increased to 43,000 this morning. Hemoglobin is relatively stable at 8.9 g/dL. Platelet count is dropped to 130,000. Arterial blood gas this morning is improved with a pH of 7.38, pCO2 of 37 and pO2 of 79. Objective Data Objective Data The patient's most recent lab work, culture data and imaging studies have all been personally reviewed. Surface echocardiogram demonstrated normal LV size and function with an ejection fraction of 60 to 65%. Blood and urine cultures are pending. Vital Signs: Vital Signs Temp Pulse Resp BP Pulse Ox O2 Del Method O2 Flow Rate 97.8 F 76 20 H 106/58 L 99 Nasal Cannula 2 05/20/24 04:00 05/20/24 06:00 05/20/24 06:00 05/20/24 06:15 05/20/24 06:00 05/20/24 06:00 05/20/24 06:00 Oxygen Flow Rate (L/min) 2 Oxygen Delivery Method Nasal Cannula Weight: 158 lb 1.143 oz Body Mass Index (BMI) 25.4 Intake & Output: Intake and Output for Last 24 Hours 05/18/24 05/19/24 05/20/24 23:59 23:59 23:59 Intake Total 207.08 / 218.81 3307.97 / 3317.37 343.67 / 343.67 Output Total 345 / 345 Balance 207.08 / 68.81 2962.97 / 2972.37 343.67 / 343.67 Lab / Micro Data Attestation: I reviewed the patient's lab results. 05/20/24 05:45 05/20/24 05:45 Labs: Laboratory Results - last 24 hr 05/18/24 16:25: Antibody Screen POSITIVE, Antibody Identification ANTI-LITTLE c 05/18/24 16:25: Antibody Identification ANTI-LITTLE c, Antigen Identification LITTLE c ANTIGEN - NEGATIVE, Crossmatch See Detail 05/19/24 06:30: Differential Comment , Diff Path Review Reviewed, Sodium 144, Potassium 7.2 H*, Chloride 116 H, Carbon Dioxide 18.0 L, Anion Gap 10, BUN 121 H*, Creatinine 3.98 H, Estim Creat Clear Calc 12.25, Est GFR (MDRD) Af Amer 19 L, Est GFR (MDRD) Non-Af 15 L, BUN/Creatinine Ratio 30.4 H, Glucose 230 H, Calcium 7.3 L 05/19/24 07:05: Sodium 143, Potassium 7.1 H*, Chloride 117 H, Carbon Dioxide 15.0 L, Anion Gap 11, BUN 136 H*, Creatinine 4.02 H, Estim Creat Clear Calc 12.12, Est GFR (MDRD) Af Amer 18 L, Est GFR (MDRD) Non-Af 15 L, BUN/Creatinine Ratio 33.8 H, Glucose 231 H, Calcium 7.6 L 05/19/24 07:42: Lactic Acid 1.6, Procalcitonin 4.16 H 05/19/24 10:57: Urine Color Yellow, Urine Clarity Turbid, Urine pH 6.0, Ur Specific [place] 1.025, Urine Protein 500 H, Urine Glucose (UA) Normal, Urine Ketones 5 H, Urine Occult Blood 150 H, Urine Nitrite Positive H, Urine Bilirubin Negative, Urine Urobilinogen Normal, Ur Leukocyte Esterase 500 H, Urine RBC 0 SEEN, Urine WBC 50-100 SEEN, Ur Squamous Epith Cells 0 SEEN, Urine Bacteria 3+, Urine Mucus 0 SEEN 05/19/24 11:33: POC Glucose 232 H 05/19/24 15:30: Hgb 9.3 L, Hct 29.6 L 05/19/24 18:05: Sodium 143, Potassium 5.2 H, Chloride 114 H, Carbon Dioxide 24.0, BUN 111 H*, Creatinine 3.90 H, Estim Creat Clear Calc 12.50, Est GFR (MDRD) Af Amer 19 L, Est GFR (MDRD) Non-Af 16 L, BUN/Creatinine Ratio 28.5 H, Glucose 200 H, Calcium 7.7 L, Phosphorus 5.1 H, Albumin 2.4 L 05/19/24 18:08: POC Glucose 185 H 05/19/24 22:37: Hgb 9.5 L, Hct 29.4 L 05/20/24 00:10: Sodium 142, Potassium 5.4 H, Chloride 111 H, Carbon Dioxide 23.0, BUN 76 H, Creatinine 2.79 H, Estim Creat Clear Calc 17.47, Est GFR (MDRD) Af Amer 28 L, Est GFR (MDRD) Non-Af 23 L, BUN/Creatinine Ratio 27.2 H, Glucose 213 H, Calcium 8.0 L, Phosphorus 4.3, Albumin 2.5 L 05/20/24 00:17: POC Glucose 188 H 05/20/24 05:45: Sodium 138, Potassium 5.0, Chloride 108 H, Carbon Dioxide 21.0, BUN 53 H, Creatinine 2.23 H, Estim Creat Clear Calc 21.85, Est GFR (MDRD) Af Amer 36 L, Est GFR (MDRD) Non-Af 30 L, BUN/Creatinine Ratio 23.8 H, Glucose 190 H, Calcium 8.5, Phosphorus 3.5, Albumin 2.4 L 05/20/24 05:46: POC Glucose 175 H ABG Data ABG results: ABG 05/19/24 05:00 Specimen Type Cancelled Sample Site Cancelled pH Cancelled Bicarbonate Actual Cancelled Total CO2 Cancelled Base Excess Cancelled O2 Saturation Cancelled O2 % Cancelled ABG pCO2 Cancelled ABG pO2 Cancelled [place] Test Cancelled Respiration Rate Cancelled O2 Delivery Device Cancelled Liter Flow Cancelled Minute Volume Cancelled Vent Mode Cancelled Inspiratory Time Cancelled Expiratory Time Cancelled Tidal Volume Cancelled Mean Airway Pressure Cancelled POC PEEP Cancelled Peak Inspir Pressure Cancelled POC Pressure Suppt Cancelled Pressure Control Cancelled Pressure High Cancelled Pressure Low Cancelled Time High Cancelled Time Low Cancelled EPAP Cancelled IPAP Cancelled Blood Gas Comments Cancelled Crit Call To/Read Back Cancelled Blood Gas Notified Whom Cancelled Blood Gas Notified Time Cancelled Clinical Comments Cancelled Radiography Diagnostic Testing: Radiology Impression Chest X-Ray 05/19/24 13:15 IMPRESSION: The tip of the right central catheter is at the junction of the superior vena cava and right atrium. Mild increased markings at the lung bases suggests atelectasis. Electronically Signed: Warren Sierra MD at 13:42 EDT , Brain CT 05/19/24 14:45 IMPRESSION: 1. No acute intracranial abnormality. 2. Senescent changes. Electronically Signed: Amor Avina MD at 15:17 EDT , Physical Exam Const alert Constitutional Narrative: Disoriented and confused. General Appearance: ill appearing HEENT normocephalic and head/scalp atraumatic Eyes PERRL, EOMs intact bilaterally and conjunctivae normal Neck supple General: trachea midline and CVC in place Chest inspection of chest normal Resp normal respiratory effort Effort and Inspection: tachypneic Auscultation: diminished lung sounds Cardio regular rate and regular rhythm GI normal to inspection, nondistended, normoactive bowel sounds Extremity General Extremity: Negative for clubbing or edema Neuro no focal motor deficits Neuro Narrative: Moves all extremities spontaneously. Psych Activity / Motor Behavior: restless Charges/Coding Procedures Hospitalists Procedures: [id number] Critical Care 1st Hr
[2024-05-20 07:10] LABS: Absolute Lymphocyte Count 2.53 X10^3/uL (0.83-4.51); Absolute Neutrophil Count 38.2 X10^3/uL (2.0-7.7); Basophil# 0.08 X10^3/uL; Basophil% 0.2 % (0-1); Eosinophil# 0.01 X10^3/uL; Hematocrit 27.2 % (40-54); Hemoglobin 8.9 g/dL (13.0-16.5); Lymphocyte # 2.53 X10^3/ul (0.83-4.51); Lymphocyte % 5.8 % (19-41); Mean Corp Hgb Conc 32.7 g/dL (32-36); Mean Corpuscular Hgb 28.5 pg (27.0-32.0); Mean Corpuscular Volume 87.2 fL (80-94); Mean Platelet Vol. 10.8 fl (6.2-12.0); Monocyte# 2.32 X10^3/uL; Monocyte% 5.3 % (0-10); NRBC Flagged by Analyzer 0 % (0-5); Neutrophil # 38.18 X10^3/uL (2.7-7.7); Neutrophil % 87.5 % (47-70); POSITIVE COUNT YES; POSITIVE DIFFERENTIAL YES; Platelet Count 130 K/mm3 (150-450); RBC Distribution Width CV 19.9 % (11.6-14.6); RBC Distribution Width SD 60.6 fl (35.1-43.9); Red Blood Count 3.12 M/mm3 (4.6-6.2); White Blood Count 43.6 K/mm3 (4.4-11.0)
[2024-05-20 07:14] LABS: Allen Test Positive; Base Excess -3 mmol/L (-2 to +2); Bicarbonate 21.7 mmol/L (22-26); Blood Gas Specimen Type ART; Mode Not entered; O2 Delivery Device Cannula; PO2 79 mmHG (75-100); SITE L Radial; SO2 95 % (95-99); Total Carbon Dioxide 23 mmol/L; pCO2 36.8 mmHg (35-45); pH 7.38 (7.35-7.45)
[2024-05-20 07:29] LABS: Differential Indicated SCAN CRITERIA MET
[2024-05-20 08:01] LABS: ALB/GLOB Ratio 0.9 RATIO (0.9-2.4); AST(SGOT) 29 U/L (15-37); Alanine Aminotransfer ALT/SGPT 21 U/L (16-61); Albumin, Serum 2.5 g/dL (3.2-5.0); Alkaline Phosphatase 78 U/L (45-117); Anion Gap 10 (5-15); BUN 56 mg/dL (7-18); BUN/Creat Ratio 24.7 RATIO (10-20); Calcium,Total 8.2 mg/dL (8.5-10.1); Chloride 109 mmol/L (98-107); Creatinine, Serum 2.27 mg/dL (0.70-1.30); EST Glomerular Filtration Rate 29 mL/min (>60); Est Glom Filt Rate - Afr Amer 35 mL/min (>60); Estimated Creatinine Clearance 21.47 ml/min; Globulin 2.9 g/dL (2.2-4.2); Glucose 185 mg/dL (74-106); Protein, Total 5.4 g/dL (6.4-8.2); Sodium Level 140 mmol/L (136-145)
--- NOTE | 2024-05-20 09:03 | PN.HOSP_ITS ---
Subjective Subjective Still confused, blood pressures are little bit better and hemoglobin is up to 8.9 today. Per report had seizure-like activity overnight I was treated with Ativan. No further seizure-like activity noted Objective Data Objective Data Vital Signs: Vital Signs Temp Pulse Resp BP Pulse Ox O2 Del Method O2 Flow Rate 97.8 F 88 24 H 116/62 100 Nasal Cannula 2 05/20/24 04:00 05/20/24 07:30 05/20/24 07:00 05/20/24 07:30 05/20/24 07:00 05/20/24 08:00 05/20/24 08:00 Oxygen Flow Rate (L/min) 2 Oxygen Delivery Method Nasal Cannula Weight: 158 lb 1.143 oz Body Mass Index (BMI) 25.4 Intake & Output: Intake and Output for Last 24 Hours 05/19/24 05/20/24 05/21/24 03:59 03:59 03:59 Intake Total 359.51 / 406.41 3336.66 / 3342.31 169.15 / 169.15 Output Total 150 / 150 195 / 195 Balance 209.51 / 256.41 3141.66 / 3147.31 169.15 / 169.15 Lab / Micro Data 05/20/24 05:45 05/20/24 05:45 Labs: Laboratory Results - last 24 hr 05/18/24 16:25: Antibody Screen POSITIVE, Antibody Identification ANTI-LITTLE c, Antigen Identification LITTLE c ANTIGEN - NEGATIVE, Crossmatch See Detail 05/19/24 06:30: Diff Path Review Reviewed 05/19/24 10:57: Urine Color Yellow, Urine Clarity Turbid, Urine pH 6.0, Ur Specific [place] 1.025, Urine Protein 500 H, Urine Glucose (UA) Normal, Urine Ketones 5 H, Urine Occult Blood 150 H, Urine Nitrite Positive H, Urine Bilirubin Negative, Urine Urobilinogen Normal, Ur Leukocyte Esterase 500 H, Urine RBC 0 SEEN, Urine WBC 50-100 SEEN, Ur Squamous Epith Cells 0 SEEN, Urine Bacteria 3+, Urine Mucus 0 SEEN 05/19/24 11:33: POC Glucose 232 H 05/19/24 15:30: Hgb 9.3 L, Hct 29.6 L 05/19/24 18:05: Sodium 143, Potassium 5.2 H, Chloride 114 H, Carbon Dioxide 24.0, BUN 111 H*, Creatinine 3.90 H, Estim Creat Clear Calc 12.50, Est GFR (MDRD) Af Amer 19 L, Est GFR (MDRD) Non-Af 16 L, BUN/Creatinine Ratio 28.5 H, G lucose 200 H, Calcium 7.7 L, Phosphorus 5.1 H, Albumin 2.4 L 05/19/24 18:08: POC Glucose 185 H 05/19/24 22:37: Hgb 9.5 L, Hct 29.4 L 05/20/24 00:10: Sodium 142, Potassium 5.4 H, Chloride 111 H, Carbon Dioxide 23.0, BUN 76 H, Creatinine 2.79 H, Estim Creat Clear Calc 17.47, Est GFR (MDRD) Af Amer 28 L, Est GFR (MDRD) Non-Af 23 L, BUN/Creatinine Ratio 27.2 H, Glucose 213 H, Calcium 8.0 L, Phosphorus 4.3, Albumin 2.5 L 05/20/24 00:17: POC Glucose 188 H 05/20/24 05:45: WBC 43.6 H*, RBC 3.12 L, Hgb 8.9 L, Hct 27.2 L, MCV 87.2 D, MCH 28.5, MCHC 32.7 D, RDW Std Deviation 60.6 H, RDW Coeff of Chucky 19.9 H, Plt Count 130 L, MPV 10.8, Immature Gran % (Auto) 1.200 H, Neut % (Auto) 87.5 H, Lymph % (Auto) 5.8 L, [place] % (Auto) 5.3, Eos % (Auto) 0.0, Baso % (Auto) 0.2, Absolute Neuts (auto) 38.2 H, Absolute Lymphs (auto) 2.53, Nucleated RBC % 0, Diff Path Review December, Sodium 138 05/20/24 05:45: Sodium 140, Potassium 5.0 05/20/24 05:45: Potassium 5.0, Chloride 108 H 05/20/24 05:45: Chloride 109 H, Carbon Dioxide 21.0 05/20/24 05:45: Carbon Dioxide 21.0, Anion Gap 10, BUN 53 H 05/20/24 05:45: BUN 56 H, Creatinine 2.23 H 05/20/24 05:45: Creatinine 2.27 H, Estim Creat Clear Calc 21.85 05/20/24 05:45: Estim Creat Clear Calc 21.47, Est GFR (MDRD) Af Amer 36 L 05/20/24 05:45: Est GFR (MDRD) Af Amer 35 L, Est GFR (MDRD) Non-Af 30 L 05/20/24 05:45: Est GFR (MDRD) Non-Af 29 L, BUN/Creatinine Ratio 23.8 H 05/20/24 05:45: BUN/Creatinine Ratio 24.7 H, Glucose 190 H 05/20/24 05:45: Glucose 185 H, Calcium 8.5 05/20/24 05:45: Calcium 8.2 L, Phosphorus 3.5, Total Bilirubin 0.80, AST 29, ALT 21, Alkaline Phosphatase 78, Total Protein 5.4 L, Albumin 2.4 L 05/20/24 05:45: Albumin 2.5 L, Globulin 2.9, Albumin/Globulin Ratio 0.9 05/20/24 05:46: POC Glucose 175 H ABG Data ABG results: ABG 05/19/24 05/20/24 05:00 07:09 Specimen Type Cancelled ART Sample Site Cancelled L Radial pH Cancelled 7.38 Bicarbonate Actual Cancelled 21.7 L Total CO2 Cancelled 23 Base Excess Cancelled -3 L O2 Saturation Cancelled 95 O2 % Cancelled 2.0 ABG pCO2 Cancelled 36.8 ABG pO2 Cancelled 79 Chalo Test Cancelled Positive Respiration Rate Cancelled O2 Delivery Device Cancelled Cannula Liter Flow Cancelled Minute Volume Cancelled Vent Mode Cancelled Not entered Inspiratory Time Cancelled Expiratory Time Cancelled Tidal Volume Cancelled Mean Airway Pressure Cancelled POC PEEP Cancelled Peak Inspir Pressure Cancelled POC Pressure Suppt Cancelled Pressure Control Cancelled Pressure High Cancelled Pressure Low Cancelled Time High Cancelled Time Low Cancelled EPAP Cancelled IPAP Cancelled Blood Gas Comments Cancelled Crit Call To/Read Back Cancelled Blood Gas Notified Whom Cancelled Blood Gas Notified Time Cancelled Clinical Comments Cancelled Radiography Diagnostic Testing: Radiology Impression Chest X-Ray 05/19/24 13:15 IMPRESSION: The tip of the right central catheter is at the junction of the superior vena cava and right atrium. Mild increased markings at the lung bases suggests atelectasis. Electronically Signed: Warren Sierra MD at 13:42 EDT , Brain CT 05/19/24 14:45 IMPRESSION: 1. No acute intracranial abnormality. 2. Senescent changes. Electronically Signed: Amor Avina MD at 15:17 EDT , Physical Exam Narrative General: Alert but drowsy, confused, Cooperative, No apparent distress HEENT: Atraumatic, PERRLA, EOMI, Normocephalic Oral: Moist Mucosa Neck: Supple, No JVD Lungs: Diminished, Normal air movement, scattered rhonchi, No wheeze, No rales Cardiovascular: Regular rate, Regular Rhythm, Normal S1, Normal S2, No murmurs Abdomen: Soft, Non Tender, Non-Distended, No Hepato-splenomegaly Extremities: No edema, Capillary Refill Less than 3 Seconds Skin: No rashes, No breakdown Musculoskeletal: No Tenderness to Palpation of Joints or Extremities Neurological: No focal neurological deficits Psych/Mental Status: Flat Assessment & Plan Assessment/Plan (1) Retroperitoneal hemorrhage: PLAN: Plan 1. Hemorrhagic shock secondary to acute blood loss anemia from retroperitoneal hemorrhage after an aortogram ? There is some difficulty getting blood because of his antibodies however we should be able to transfuse him today ? Will attempt access, he does have a right IJ but will need a dialysis catheter for CRRT given his hyperkalemia ? Appreciate supervisor fusing room assistance ? Leukocytosis is likely reactive to stress though we will start with antibiotic coverage secondary to the possible aspiration event this morning ? Continue with Levophed, wean as able ? Continue with PPI prophylaxis 2. DM2/CKD 4 ? Sliding scale insulin ? Accu-Cheks ? Monitor make adjustments as necessary ? Given his hyperkalemia we will proceed with CRRT, appreciate nephrology's assistance 3. BPH ? Stable ? Has Conway in place ? Once Levophed is off and he is more stable can restart Flomax 4. Depression ? Stable ? Continue his home medications when able DVT: SCDs Charges/Coding Visit Charges Inpatient E&M: 63436 Subs Hosp L2
[2024-05-20] MEDS: BRIMONIDINE 0.2% 5ML BOTTLE 1 DRP RIGHT EYE (09:14)
[2024-05-20] MEDS: Timolol 0.5% 5ML OPTH.BTL 1 DRP RIGHT EYE (09:15)
[2024-05-20] MEDS: Pantoprazole Sodium 40 MG in 0.9% Normal Saline (100mL MB+) 100 ML 330 MG IV (09:36)
[2024-05-20] MEDS: FLU VACCINE **HIGH DOSE** TV 24-25 180 MCG/0.5 ML SYRINGE IM (09:39)
[2024-05-20] MEDS: 0.9% Normal Saline (500mL Bag) 500 ML IV (11:05)
[2024-05-20 11:23] LABS: Bedside Glucose 142 mg/dL (74-106)
[2024-05-20 12:36] LABS: Albumin, Serum 2.4 g/dL (3.2-5.0); BUN 41 mg/dL (7-18); BUN/Creat Ratio 21.8 RATIO (10-20); Calcium,Total 8.3 mg/dL (8.5-10.1); Chloride 108 mmol/L (98-107); Creatinine, Serum 1.88 mg/dL (0.70-1.30); EST Glomerular Filtration Rate 36 mL/min (>60); Est Glom Filt Rate - Afr Amer 44 mL/min (>60); Estimated Creatinine Clearance 25.92 ml/min; Glucose 161 mg/dL (74-106); Phosphorus 3.1 mg/dL (2.5-4.9); Sodium Level 139 mmol/L (136-145)
[2024-05-20 18:10] LABS: Bedside Glucose 169 mg/dL (74-106)
[2024-05-20 18:20] LABS: Albumin, Serum 2.5 g/dL (3.2-5.0); BUN 33 mg/dL (7-18); Calcium,Total 8.3 mg/dL (8.5-10.1); Chloride 106 mmol/L (98-107); Creatinine, Serum 1.65 mg/dL (0.70-1.30); EST Glomerular Filtration Rate 42 mL/min (>60); Est Glom Filt Rate - Afr Amer 51 mL/min (>60); Estimated Creatinine Clearance 29.54 ml/min; Glucose 175 mg/dL (74-106); Phosphorus 3.2 mg/dL (2.5-4.9); Potassium 5.1 mmol/L (3.5-5.1); Sodium Level 138 mmol/L (136-145)
--- NOTE | 2024-05-20 19:17 | PCM.PN.REN ---
Subjective Subjective alert awake. low dose levophed. not much urine output. breathing looks ok. K better. bicarbonate stable. Objective Data Objective Data Vital Signs: Vital Signs Temp Pulse Resp BP Pulse Ox O2 Del Method O2 Flow Rate 98.2 F 81 26 H 103/49 L 98 Nasal Cannula 2 05/20/24 12:00 05/20/24 18:00 05/20/24 18:00 05/20/24 18:00 05/20/24 18:00 05/20/24 18:00 05/20/24 18:00 Oxygen Flow Rate (L/min) 2 Oxygen Delivery Method Nasal Cannula Weight: 71.7 kg Body Mass Index (BMI) 25.4 Intake & Output: Intake and Output for Last 24 Hours 05/18/24 05/19/24 05/20/24 23:59 23:59 23:59 Intake Total 207.08 / 218.81 3307.97 / 3317.37 1221.17 / 1221.17 Output Total 345 / 345 Balance 207.08 / 68.81 2962.97 / 2972.37 1221.17 / 1221.17 Lab / Micro Data 05/20/24 05:45 05/20/24 15:46 Labs: Laboratory Results - last 24 hr 05/18/24 16:25: Crossmatch See Detail 05/19/24 22:37: Hgb 9.5 L, Hct 29.4 L 05/20/24 00:10: Sodium 142, Potassium 5.4 H, Chloride 111 H, Carbon Dioxide 23.0, BUN 76 H, Creatinine 2.79 H, Estim Creat Clear Calc 17.47, Est GFR (MDRD) Af Amer 28 L, Est GFR (MDRD) Non-Af 23 L, BUN/Creatinine Ratio 27.2 H, Glucose 213 H, Calcium 8.0 L, Phosphorus 4.3, Albumin 2.5 L 05/20/24 00:17: POC Glucose 188 H 05/20/24 05:45: WBC 43.6 H*, RBC 3.12 L, Hgb 8.9 L, Hct 27.2 L, MCV 87.2 D, MCH 28.5, MCHC 32.7 D, RDW Std Deviation 60.6 H, RDW Coeff of [place] 19.9 H, Plt Count 130 L, MPV 10.8, Immature Gran % (Auto) 1.200 H, Neut % (Auto) 87.5 H, Lymph % (Auto) 5.8 L, [place] % (Auto) 5.3, Eos % (Auto) 0.0, Baso % (Auto) 0.2, Absolute Neuts (auto) 38.2 H, Absolute Lymphs (auto) 2.53, Nucleated RBC % 0, Diff Path Review May foll, Sodium 138 05/20/24 05:45: Sodium 140, Potassium 5.0 05/20/24 05:45: Potassium 5.0, Chloride 108 H 05/20/24 05:45: Chloride 109 H, Carbon Dioxide 21.0 05/20/24 05:45: Carbon Dioxide 21.0, Anion Gap 10, BUN 53 H 05/20/24 05:45: BUN 56 H, Creatinine 2.23 H 05/20/24 05:45: Creatinine 2.27 H, Estim Creat Clear Calc 21.85 05/20/24 05:45: Estim Creat Clear Calc 21.47, Est GFR (MDRD) Af Amer 36 L 05/20/24 05:45: Est GFR (MDRD) Af Amer 35 L, Est GFR (MDRD) Non-Af 30 L 05/20/24 05:45: Est GFR (MDRD) Non-Af 29 L, BUN/Creatinine Ratio 23.8 H 05/20/24 05:45: BUN/Creatinine Ratio 24.7 H, Glucose 190 H 05/20/24 05:45: Glucose 185 H, Calcium 8.5 05/20/24 05:45: Calcium 8.2 L, Phosphorus 3.5, Total Bilirubin 0.80, AST 29, ALT 21, Alkaline Phosphatase 78, Total Protein 5.4 L, Albumin 2.4 L 05/20/24 05:45: Albumin 2.5 L, Globulin 2.9, Albumin/Globulin Ratio 0.9 05/20/24 05:46: POC Glucose 175 H 05/20/24 11:04: POC Glucose 142 H 05/20/24 11:55: Sodium 139, Potassium 5.0, Chloride 108 H, Carbon Dioxide 25.0, BUN 41 H, Creatinine 1.88 H, Estim Creat Clear Calc 25.92, Est GFR (MDRD) Af Amer 44 L, Est GFR (MDRD) Non-Af 36 L, BUN/Creatinine Ratio 21.8 H, Glucose 161 H, Calcium 8.3 L, Phosphorus 3.1, Albumin 2.4 L 05/20/24 15:46: Sodium 138, Potassium 5.1, Chloride 106, Carbon Dioxide 21.0, BUN 33 H, Creatinine 1.65 H, Estim Creat Clear Calc 29.54, Est GFR (MDRD) Af Amer 51 L, Est GFR (MDRD) Non-Af 42 L, BUN/Creatinine Ratio 20.0, Glucose 175 H, Calcium 8.3 L, Phosphorus 3.2, Albumin 2.5 L 05/20/24 17:52: POC Glucose 169 H Micro: Microbiology 05/20/24 09:45 Nasal Secretion MRSA (PCR) - Final 05/19/24 10:57 Urine Catheter - Catheter Urine Culture - Preliminary GNR 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 ABG Data ABG results: ABG 05/20/24 07:09 Specimen Type ART Sample Site L Radial pH 7.38 Bicarbonate Actual 21.7 L Total CO2 23 Base Excess -3 L O2 Saturation 95 O2 % 2.0 ABG pCO2 36.8 ABG pO2 79 Chalo Test Positive O2 Delivery Device Cannula Vent Mode Not entered Physical Exam Narrative Alert to name, confused to time and place S1, S2, RRR Lungs clear Abdomen soft, rounded No edema Indwelling [place] with scant yellow urine in Assessment & Plan Assessment/Plan (1) Hemorrhagic shock: (2) Retroperitoneal hemorrhage: (3) DORIS (acute kidney injury): (4) Hyperkalemia: (5) CKD (chronic kidney disease) stage 4, GFR 15-29 ml/min: PLAN: Plan This is an 84-year-old male with past medical history significant for significant peripheral artery disease, hypertension, CKD stage IV, history of nonhealing wounds of bilateral lower extremities with arterial insufficiency who underwent aortogram with bilateral lower extremity runoff yesterday per Dr. Goldberg, after procedure patient became significantly hypotensive without response to IV fluids, CT of abdomen and pelvis demonstrated retroperitoneal hemorrhage, hemoglobin dropped, patient admitted to ICU, received multiple units PRBC. Nephrology consulted in view of history of CKD stage IV now with DORIS and hyperkalemia, metabolic acidosis. baseline cr around 2.5 or so on CRRT see orders. multiple adjustments overnight acidosis better K is normal still looks on dry side 1 L fluid bolus dw ICU attending continue CRRT for today
[2024-05-21] VITALS (61 sets, daily range): BP systolic 41–173; BP diastolic 31–102; PULSE 50–89; RESP 9–34; TEMP 35.5–36.5; O2SAT 78–100; BMI 25.4
[2024-05-21] MEDS: 0.9% Saline Lock 10 ML Syringe IV ×4 (00:14→22:34)
[2024-05-21 00:36] LABS: Albumin, Serum 2.5 g/dL (3.2-5.0); BUN 27 mg/dL (7-18); BUN/Creat Ratio 18.6 RATIO (10-20); Calcium,Total 8.7 mg/dL (8.5-10.1); Chloride 106 mmol/L (98-107); Creatinine, Serum 1.45 mg/dL (0.70-1.30); EST Glomerular Filtration Rate 49 mL/min (>60); Est Glom Filt Rate - Afr Amer 59 mL/min (>60); Estimated Creatinine Clearance 33.61 ml/min; Glucose 173 mg/dL (74-106); Potassium 5.3 mmol/L (3.5-5.1); Sodium Level 139 mmol/L (136-145)
[2024-05-21 00:53] LABS: Bedside Glucose 141 mg/dL (74-106)
[2024-05-21] MEDS: Meropenem 1 GM in 0.9% Normal Saline (100mL MB+) 100 ML IV ×2 (05:17→21:14)
[2024-05-21 06:33] LABS: Absolute Lymphocyte Count 0.66 X10^3/uL (0.83-4.51); Absolute Neutrophil Count 27.2 X10^3/uL (2.0-7.7); Basophil# 0.04 X10^3/uL; Basophil% 0.1 % (0-1); Hematocrit 24.9 % (40-54); Hemoglobin 7.8 g/dL (13.0-16.5); Lymphocyte # 0.66 X10^3/ul (0.83-4.51); Lymphocyte % 2.3 % (19-41); Mean Corp Hgb Conc 31.3 g/dL (32-36); Mean Corpuscular Hgb 28.4 pg (27.0-32.0); Mean Corpuscular Volume 90.5 fL (80-94); Mean Platelet Vol. 11.1 fl (6.2-12.0); Monocyte# 1.09 X10^3/uL; Monocyte% 3.7 % (0-10); NRBC Flagged by Analyzer 0.2 % (0-5); Neutrophil # 27.19 X10^3/uL (2.7-7.7); Neutrophil % 92.8 % (47-70); POSITIVE DIFFERENTIAL YES; Platelet Count 101 K/mm3 (150-450); RBC Distribution Width CV 19.6 % (11.6-14.6); RBC Distribution Width SD 62.9 fl (35.1-43.9); Red Blood Count 2.75 M/mm3 (4.6-6.2); White Blood Count 29.3 K/mm3 (4.4-11.0)
[2024-05-21 06:37] LABS: Differential Indicated SCAN CRITERIA MET
[2024-05-21 06:40] LABS: Albumin, Serum 2.5 g/dL (3.2-5.0); BUN 23 mg/dL (7-18); BUN/Creat Ratio 19.5 RATIO (10-20); Calcium,Total 8.7 mg/dL (8.5-10.1); Chloride 105 mmol/L (98-107); Creatinine, Serum 1.18 mg/dL (0.70-1.30); EST Glomerular Filtration Rate 62 mL/min (>60); Est Glom Filt Rate - Afr Amer 75 mL/min (>60); Glucose 143 mg/dL (74-106); Phosphorus 3.5 mg/dL (2.5-4.9); Potassium 5.4 mmol/L (3.5-5.1); Sodium Level 137 mmol/L (136-145)
[2024-05-21 06:40] LABS: Bedside Glucose 134 mg/dL (74-106)
[2024-05-21 07:06] LABS: Differential Comment SCANNED; Vacuolated Cells 1+
--- NOTE | 2024-05-21 07:26 | RAD_ITS ---
STUDY: X-RAY CHEST REASON FOR EXAM: Male, 84 years old. Chest pain TECHNIQUE: Frontal view of the chest COMPARISON: 05/19/2024 FINDINGS: There is an endotracheal tube noted with its tip approximately 3 cm above the ju[place]. There is an enteric tube noted with its tip in the stomach. There is a right-sided central catheter with its tip in the superior vena cava. There are stable bibasilar atelectasis. The lungs are otherwise clear. There are no pleural effusions. There is no pneumothorax. The heart is normal in size. Again noted is a pacemaker. The visualized osseous structures are within normal limits. RAD/Chest 1 View (Portable) IMPRESSION: Satisfactory position of the support lines and tubes. No acute thoracic pathology. Electronically Signed: Adrian Perry MD at 9:00 EDT ,
[2024-05-21 07:27] LABS: Allen Test Positive; Base Excess -4 mmol/L (-2 to +2); Bicarbonate 25.7 mmol/L (22-26); Blood Gas Specimen Type ART; Mode Not entered; O2 Delivery Device Bagging; PEEP 5; PO2 75 mmHG (75-100); SITE R Fem; SO2 88 % (95-99); Total Carbon Dioxide 28 mmol/L; pCO2 80.7 mmHg (35-45); pH 7.11 (7.35-7.45)
[2024-05-21] MEDS: LORazepam 2 MG/ML Syringe IV (07:53)
[2024-05-21] MEDS: Propofol 10MG/Ml 1,000 MG/100 ML Bottle 4.3 MG CONT INF (07:56)
--- NOTE | 2024-05-21 07:58 | NURSING ---
0703: this RN notified of pt low BP and pt change of status during shift huddle. All staff responded, crash cart in room. Monitor alarming apnea. 0705: no pulse, CPR started. See code blue documentation 0714: ROSC obtained 0715: pt intubated with 7.5 ETT 25 @ the lip, bilateral breath sounds and positive color change. CXR ordered
[2024-05-21] MEDS: Heparin 10,000 UNITS/10 ML Vial IV (08:00)
[2024-05-21] MEDS: Norepinephrine 8 MG in 0.9% Normal Saline (250mL Bag) 242 ML 9.4 MG CONT INF (08:13)
--- NOTE | 2024-05-21 09:15 | PN.HOSP_ITS ---
Hospitalist Note Patient was found to be hypotensive and unresponsive with no pulse at 7:05 AM this morning, ACLS protocol was initiated, chest compressions were started and patient was given 1 amp of epinephrine initially, he was found to be in PEA. An amp of bicarb was also administered, patient remained in PEA and was given another amp of epinephrine and an additional amp of bicarb. Chest compressions continued, patient was intubated by Dr. Mary Lou Welch without difficulty. Ultimately a third amp of epinephrine was administered and the patient had a return of spontaneous circulation with tachycardia. Arterial blood gas was obtained and showed an elevated pCO2 with acidosis. Conversations were carried out with the via phone during the initial res uscitation attempts and she confirmed that the patient was a full code. Chest x-ray was obtained and showed adequate placement of ET tube and NG tube. Patient was placed on propofol and fentanyl for sedation. In addition, I also had a brief conversation with nephrology (Dr. Mathew) and he confirmed that continuous dialysis could be stopped at this time. Patient's prognosis is guarded at this time.
[2024-05-21 09:18] LABS: Allen Test Positive; Base Excess -7 mmol/L (-2 to +2); Bicarbonate 20.4 mmol/L (22-26); Blood Gas Specimen Type ART; Mode AC; O2 Delivery Device Adult Vent; PEEP 8; PO2 30 mmHG (75-100); RR 16; SITE R Brach; SO2 48 % (95-99); Total Carbon Dioxide 22 mmol/L; pCO2 44.5 mmHg (35-45); pH 7.27 (7.35-7.45)
[2024-05-21 09:38] LABS: CPK Total, Creatine Kinase 2779 U/L (39-308); Triglycerides 125 mg/dL
[2024-05-21] MEDS: Pantoprazole Sodium 40 MG in 0.9% Normal Saline (100mL MB+) 100 ML 330 MG IV (10:57)
[2024-05-21] MEDS: BRIMONIDINE 0.2% 5ML BOTTLE 1 DRP RIGHT EYE (10:59)
[2024-05-21] MEDS: Timolol 0.5% 5ML OPTH.BTL 1 DRP RIGHT EYE (11:00)
[2024-05-21] MEDS: Clopidogrel Bisulfate 75 MG Tablet GT (11:26)
--- NOTE | 2024-05-21 11:44 | PCM.OP.PRO ---
Procedure Report Date of Procedure: 05/21/24 Intubation Indication: CODE BLUE Consent was obtained from: Emergent The patient was placed in the appropriate sniffing position. No sedation was required. Direct laryngoscopy was then performed using a number 4 MAC blade, which revealed a grade 3 view. A 7.5 mm endotracheal tube was visualized advancing between the cords to the level of 24 cm at the lip. The stylette was then removed and discarded. Tube placement was confirmed by fogging in the tube along with equal and bilateral breath sounds. Colorimetric change was visualized on the CO2 meter. The cuff was then inflated and the tube secured using a commercially available device. A good pulse oximetry waveform was seen on the monitor throughout the procedure. A portable chest x-ray has been ordered to confirm appropriate placement. The patient tolerated the procedure well. Procedures Hospitalists Procedures: 57602 Insert Emergency Airway
[2024-05-21] MEDS: Ferrous Sulfate 300 MG/5 ML UDC GT (11:48)
[2024-05-21 11:49] LABS: Bedside Glucose 96 mg/dL (74-106)
[2024-05-21 12:32] LABS: Anion Gap 18 (5-15); BUN 32 mg/dL (7-18); BUN/Creat Ratio 20.9 RATIO (10-20); Calcium,Total 8.3 mg/dL (8.5-10.1); Chloride 103 mmol/L (98-107); Creatinine, Serum 1.53 mg/dL (0.70-1.30); EST Glomerular Filtration Rate 46 mL/min (>60); Est Glom Filt Rate - Afr Amer 56 mL/min (>60); Estimated Creatinine Clearance 31.85 ml/min; Glucose 196 mg/dL (74-106); Potassium 5.8 mmol/L (3.5-5.1); Sodium Level 137 mmol/L (136-145)
--- NOTE | 2024-05-21 13:19 | PCMCONS.TICU ---
HPI Consult Data Date of Consult: 05/21/24 HPI Narrative Reason for Consultation: Post-arrest HPI Narrative: ALY LACY, is a 84 M who presents following PEA arrest on floor with successful ROSC. Details surrounding his condition just prior to the event are lacking. Patient was found to be hypotensive and unresponsive with no pulse at 7:05 AM this morning, ACLS protocol was initiated, chest compressions were started and patient was given 1 amp of epinephrine initially, he was found to be in PEA. An amp of bicarb was also administered, patient remained in PEA and was given another amp of epinephrine and an additional amp of bicarb. Chest compressions continued, patient was intubated without difficulty. Ultimately a third amp of epinephrine was administered and the patient had a return of spontaneous circulation and was transferred to ICU for continued care. He is on high dose vasopressors and was noted to possibly have a seizure vs myoclonus and was given ativan x 1 for that. He currently is not responding to stimuli. [facility] Medical History (Updated 05/19/24 @ 11:38 by DAV Colon) Diabetes Hypertension Home Medications ?Medication ?Instructions ?Recorded ?Last Taken ?Type clopidogrel 75 mg tablet 75 mg PO DAILY 04/03/15 05/18/24 History latanoprost 0.005 % eye drops 1 drp QHS 04/03/15 Unknown History metoprolol succinate 25 mg 50 mg PO DAILY . 04/03/15 05/18/24 History tablet,extended release 24 hr simvastatin 40 mg tablet 40 mg PO QHS 04/03/15 Unknown History sucralfate 1 gram tablet 2 g PO BID . 04/03/15 05/18/24 History tamsulosin 0.4 mg capsule 0.8 mg PO BID . 04/03/15 Unknown History apremilast 30 mg tablet (Otezla) 30 mg PO DAILY 02/05/16 Unknown History ferrous sulfate 325 mg (65 mg 325 mg PO DAILY 03/08/24 Unknown History iron) tablet (FeroSul) glipizide 2.5 mg tablet, extended 2.5 mg PO BID 03/08/24 Unknown History release 24 hr sodium polystyrene sulfonate 15 60 ml PO .3x week . 03/08/24 Unknown History gram-sorbitol 20 gram/60 mL oral susp (SPS (with sorbitol)) timolol maleate 0.5 % eye drops 1 drp ophthalmic (eye) BID . 03/08/24 Unknown History cetirizine 10 mg tablet (Zyrtec) 10 mg PO QDAY PRN . 05/05/24 Unknown History cobalamine combinations capsule cap PO 05/05/24 Unknown History duloxetine 20 mg capsule,delayed 30 mg PO DAILY . 05/05/24 Unknown History release (Cymbalta) gabapentin 100 mg capsule 400 mg PO TID 05/05/24 05/18/24 History insulin glargine 100 unit/mL 18 unit subcut QPM . 05/05/24 Unknown History subcutaneous cartridge insulin lispro 100 unit/mL 1 sliding scale dose subcut 05/05/24 Unknown History subcutaneous pen USEASDIRECTD . brimonidine tartrate 1 drp RIGHT EYE BID . 05/18/24 05/20/24 History calcium 600 mg capsule 600 mg PO DAILY . 05/18/24 Unknown History cyanocobalamin (vitamin B-12) 500 500 mcg PO DAILY . 05/18/24 Unknown History mcg tablet (Vitamin B-12) montelukast 10 mg tablet 10 mg PO DAILY . 05/18/24 Unknown History (Singulair) Allergy/AdvReac Type Severity Reaction Status Date / Time latex Allergy Intermediate Rash Verified 05/05/24 14:37 penicillin Allergy Intermediate Unknown Verified 05/05/24 14:37 tramadol Allergy Mild Nausea Verified 05/05/24 14:37 Surgical History Hx of cataract surgery (~1996) Social History Smoking Status: Never smoker ROS Review of Systems ROS Unobtainable: due to encephalopathy and due to endotracheal tube Objective Data Objective Data Vital Signs: Vital Signs Last response Temperature 35.8 C L 05/21/24 12:00 Temperature Source Temporal 05/21/24 12:00 Pulse Rate 81 05/21/24 12:00 Pulse Strength Normal (2+) 05/20/24 08:55 Respiratory Rate 31 H 05/21/24 12:00 Respiratory Effort Mechanically Ventilated 05/21/24 12:00 Respiratory Depth Shallow 05/21/24 08:00 Respiratory Pattern Tachypnea 05/21/24 12:00 Blood Pressure 105/48 L 05/21/24 12:30 Blood Pressure Mean 67 05/21/24 12:30 Blood Pressure Source Monitor 05/21/24 12:30 Blood Pressure Position Semi-Fowlers 05/21/24 12:00 Blood Pressure Location Left Arm 05/21/24 12:00 Pulse Ox 100 05/21/24 12:00 Oxygen Delivery Method Mechanical Ventilator 05/21/24 12:00 Oxygen Flow Rate (L/min) 2 05/21/24 07:00 Fraction of Inspired Oxygen (FIO2) 90 05/21/24 12:00 CLA-BSI maintained Yes 05/19/24 12:00 I&O: I&O Last 24 Hours 05/20/24 05/21/24 05/21/24 23:59 11:59 23:59 Intake Total 626.65 / 1221.17 449.58 / 597.68 148.10 / 597.68 Output Total Balance 625.65 / 1220.17 449.58 / 597.68 148.10 / 597.68 I&O: Total Stay 05/06/24 09:47 thru 05/21/24 12:30 Intake Total 5333.90 Output Total 346 Balance 4987.90 Current Meds Ordered / Administered: Current meds ordered / Administered Generic Name Dose Route Start Last Admin Trade Name Freq PRN Reason Stop Dose Admin Acetaminophen 1,000 mg 05/18/24 22:00 05/21/24 11:58 Acetaminophen 500 Mg Tablet PO Not Given Q8 DULCE MARIA Albuterol Sulfate 2.5 mg 05/18/24 16:37 Albuterol 2.5 Mg/3 Ml Vial.Neb. INHALATION Q2H PRN PRN SOB &/OR WHEEZING Atorvastatin Calcium 20 mg 05/18/24 22:00 05/20/24 21:23 Atorvastatin Calcium 20 Mg Tablet PO Not Given QHS DULCE MARIA Brimonidine Tartrate 1 drp 05/19/24 10:00 05/21/24 10:59 Brimonidine 0.2% 5ml Bottle RIGHT EYE 1 drp DAILY DULCE MARIA Administration CRRT Dialysis Solution 9 bag 05/19/24 19:36 05/20/24 06:06 Pureflow B Solution 4k 5,000 Ml Bag PF 3 bag UD PRN Administration CRRT Protocol CRRT Dialysis Solution 9 bag 05/21/24 12:40 Pureflow B Solution 2k 5,000 Ml Bag PF UD PRN CRRT Protocol Chlorhexidine Gluconate 1 each 05/22/24 10:00 Chlorhexidine Gluc 2% Cloth 1 Each [place] TOPICAL DAILY DULCE MARIA Chlorhexidine Gluconate 15 ml 05/21/24 22:00 Chlorhexidine 15 Ml PO BID DULCE MARIA Clopidogrel Bisulfate 75 mg 05/21/24 10:00 05/21/24 11:26 Clopidogrel Bisulfate 75 Mg Tablet GT 75 mg DAILY DULCE MARIA Administration Docusate Sodium 100 mg 05/18/24 22:00 05/21/24 09:51 Docusate Sodium 100 Mg Capsule PO Not Given BID DULCE MARIA Ferrous Sulfate 300 mg 05/21/24 12:00 05/21/24 11:48 Ferrous Sulfate 300 Mg/5 Ml Udc GT 300 mg LUNCH DULCE MARIA Administration Gabapentin 400 mg 05/18/24 22:00 05/21/24 11:58 Gabapentin 400 Mg Capsule PO Not Given TID DULCE MARIA Heparin Sodium (Porcine) 0 units 05/19/24 12:10 05/21/24 08:00 Heparin 10,000 Units/10 Ml Vial IV 2,600 units X1 PRN Administration Emergency Dialysis Catheter DC Sodium Chloride 250 mls @ 15 mls/hr 05/18/24 16:41 05/21/24 12:18 IV 15 mls/hr .[id number] PRN Infusion Additional IVPB Infusion Sodium Chloride 250 mls @ 15 mls/hr 05/18/24 16:41 IV .[id number] PRN Saline Flush Norepinephrine Bitartrate 8 mg 250 mls @ 9.375 mls/hr 05/18/24 16:55 05/21/24 12:30 / Sodium Chloride CONT INF 15 mcg/min .[id number] DULCE MARIA 28.1 mls/hr Titration Protocol 5 MCG/MIN Pantoprazole Sodium 40 mg/ 110 mls @ 330 mls/hr 05/19/24 10:00 05/21/24 11:28 Sodium Chloride IV Infused Q24 DULCE MARIA Infusion Magnesium Sulfate 4 gm in 100 mls @ 25 mls/hr 05/19/24 12:10 IV X1 PRN Magnesium level < 1.6mg/dl Sodium Phosphate 30 mmol/ 260 mls @ 62.5 mls/hr 05/19/24 12:10 Sodium Chloride IV X1 PRN Phosphorus Level <2.5 Potassium Chloride 40 meq/ 270 mls @ 135 mls/hr 05/19/24 12:10 Sodium Chloride IV X1 PRN K+ <3.5 mEq/L Propofol 1,000 mg in 100 mls @ 4.314 mls/hr 05/21/24 07:40 05/21/24 12:30 Diprivan CONT INF 0 mcg/kg/min .Q12H DULCE MARIA 0 mls/hr Titration Protocol 10 MCG/KG/MIN Fentanyl 100 mls @ 5 mls/hr 05/21/24 07:40 05/21/24 09:49 CONT INF Not Given UD [facility] Protocol 50 MCG/HR Meropenem 1 gm/ Sodium 120 mls @ 33 mls/hr 05/21/24 22:00 Chloride IV Q8 [facility] Insulin Human Lispro 0 unit 05/18/24 18:00 05/21/24 11:26 Insulin Lispro 100 Unit/Ml Insuln.Pen SC Not Given Q6 [facility] Protocol Ondansetron HCl 4 mg 05/18/24 16:37 05/19/24 04:37 Ondansetron 4 Mg/2 Ml Vial IV 4 mg Q8H PRN PRN Administration NAUSEA/VOMITING Prochlorperazine Edisylate 5 mg 05/18/24 16:37 Prochlorperazine 10 Mg/2 Ml Vial IV Q4H PRN PRN Breakthrough Nausea/Vomiting Sodium Chloride 10 - 40 ml 05/18/24 16:41 05/21/24 08:03 0.9% Saline Lock 10 Ml Syringe IV 40 ml UD PRN Administration SALINE FLUSH Sodium Chloride 20 ml 05/19/24 12:10 0.9% Saline Lock 10 Ml Syringe IV UD PRN Emergency Dialysis Catheter DC Sodium Chloride 50 - 100 ml 05/19/24 12:10 0.9% Normal Saline 1,000 Ml Iv.Soln. IV UD PRN CRRT System Flush Sodium Chloride 50 - 100 ml 05/21/24 12:40 0.9% Normal Saline 1,000 Ml Iv.Soln. IV UD PRN CRRT System Flush Sucralfate 1 gm 05/21/24 16:00 Sucralfate 1 Gm Tablet GT BIDAC DULCE MARIA Throat Lozenges 1 lozenge 05/18/24 16:37 Benzocaine/Menthol 1 Lozenge MUCOUS MEM Q2H PRN PRN SORE THROAT Timolol Maleate 1 drp 05/19/24 10:00 05/21/24 11:00 Timolol 0.5% 5ml Opth.Btl RIGHT EYE 1 drp DAILY DULCE MARIA Administration Physical Exam Const General Appearance: ill appearing and patient mechanically ventilated Exam Limitations: physical limitations HEENT normocephalic Nose: external nose normal Mouth: endotracheal tube in place and OG tube in place Neck no meningeal signs Resp Auscultation: diminished lung sounds Cardio regular rate Lab / Micro Data Attestation: I reviewed the patient's lab results. 05/21/24 06:15 05/21/24 12:03 Labs: Laboratory Results - last 24 hr 05/20/24 15:46: Sodium 138, Potassium 5.1, Chloride 106, Carbon Dioxide 21.0, BUN 33 H, Creatinine 1.65 H, Estim Creat Clear Calc 29.54, Est GFR (MDRD) Af Amer 51 L, Est GFR (MDRD) Non-Af 42 L, BUN/Creatinine Ratio 20.0, Glucose 175 H, Calcium 8.3 L, Phosphorus 3.2, Albumin 2.5 L 05/20/24 17:52: POC Glucose 169 H 05/21/24 00:05: Sodium 139, Potassium 5.3 H, Chloride 106, Carbon Dioxide 21.0, BUN 27 H, Creatinine 1.45 H, Estim Creat Clear Calc 33.61, Est GFR (MDRD) Af Amer 59 L, Est GFR (MDRD) Non-Af 49 L, BUN/Creatinine Ratio 18.6, Glucose 173 H, Calcium 8.7, Phosphorus 4.0, Albumin 2.5 L 05/21/24 00:17: POC Glucose 141 H 05/21/24 06:15: WBC 29.3 H, RBC 2.75 L, Hgb 7.8 L, Hct 24.9 L, MCV 90.5, MCH 28.4, MCHC 31.3 L, RDW Std Deviation 62.9 H, RDW Coeff of Chucky 19.6 H, Plt Count 101 L, MPV 11.1, Immature Gran % (Auto) 1.100 H, Neut % (Auto) 92.8 H, Lymph % (Auto) 2.3 L, Coffee % (Auto) 3.7, Eos % (Auto) 0.0, Baso % (Auto) 0.1, Absolute Neuts (auto) 27.2 H, Absolute Lymphs (auto) 0.66 L, Nucleated RBC % 0.2, Differential Comment SCANNED, Toxic Vacuolation 1+, Sodium 137, Potassium 5.4 H, Chloride 105, Carbon Dioxide 20.0 L, BUN 23 H, Creatinine 1.18, Estim Creat Clear Calc 41.30, Est GFR (MDRD) Af Amer 75, Est GFR (MDRD) Non-Af 62, BUN/Creatinine Ratio 19.5, Glucose 143 H, Calcium 8.7, Phosphorus 3.5, Total Creatine Kinase 2779 H, Albumin 2.5 L, Triglycerides 125 05/21/24 06:20: POC Glucose 134 H 05/21/24 11:23: POC Glucose 96 05/21/24 12:03: Sodium 137, Potassium 5.8 H, Chloride 103, Carbon Dioxide 17.0 L, Anion Gap 18 H, BUN 32 H, Creatinine 1.53 H, Estim Creat Clear Calc 31.85, Est GFR (MDRD) Af Amer 56 L, Est GFR (MDRD) Non-Af 46 L, BUN/Creatinine Ratio 20.9 H, Glucose 196 H, Calcium 8.3 L Micro: Microbiology 05/21/24 07:56 Sputum, Induced/Lukens Gram Stain - Final 05/19/24 07:42 Blood Culture (Wb) - Right Hand Blood Culture - Preliminary No growth in 48 hours. 05/19/24 10:57 Urine Catheter - Catheter Urine Culture - Final Klebsiella oxytoca 05/20/24 09:45 Nasal Secretion MRSA (PCR) - Final ABG Data ABG results: ABG 05/21/24 05/21/24 07:23 09:14 Specimen Type ART ART Sample Site R Fem R Brach pH 7.11 L* 7.27 L Bicarbonate Actual 25.7 20.4 L Total CO2 28 22 Base Excess -4 L -7 L O2 Saturation 88 L 48 L O2 % 100.0 100.0 ABG pCO2 80.7 H* 44.5 ABG pO2 75 30 L* Chalo Test Positive Positive Respiration Rate 16 O2 Delivery Device Bagging Adult Vent Vent Mode Not entered AC Tidal Volume 450.0 POC PEEP 5 8 Crit Call To/Read Back Yes Yes Blood Gas Notified Whom rekha da silva Blood Gas Notified Time 07:25:28 09:15:48 Imaging Radiology Impression Chest X-Ray 05/21/24 07:26 IMPRESSION: Satisfactory position of the support lines and tubes. No acute thoracic pathology. Electronically Signed: Adrian Perry MD at 9:00 EDT , Assessment and Plan . Assessment and plan: 1. PEA arrest, ROSC after significant resuscitative efforts 2. DORIS/CKD on CRRT prior to event 3. PVD, s/p catheterization c/b RPH requiring transfusion 4. concern for KT 5. acute resp. failure, blood gases reviewed, vent adjusted as needed Suggest: 1. continue norepinephrine 2. same vent settings 2. standard ICU px 3. Discussed with family poor prognosis possible future need to re-evaluate goals of care depending on neurologic evolution in days ahead Critical Care Time: 60 minutes The entirety of this encounter was done via Telemedicine
[2024-05-21] MEDS: PUREFLOW B SOLUTION 2K 5,000 ML BAG 9 BAG PF (13:33)
[2024-05-21] MEDS: Norepinephrine 8 MG in 0.9% Normal Saline (250mL Bag) 242 ML 28.1 MG CONT INF (14:18)
[2024-05-21 14:21] LABS: Hematocrit 30.2 % (40-54); Hemoglobin 9.5 g/dL (13.0-16.5)
[2024-05-21] MEDS: 0.9% Normal Saline (500mL Bag) 500 ML IV (14:54)
--- NOTE | 2024-05-21 15:16 | PN.RENAL_ITS ---
Subjective Subjective Events noted. Had a PEA arrest this morning, about 5 to 7 minutes of CPR. Currently intubated. Levophed 15 mcg. Remains anuric. Repeat labs this afternoon potassium increasing. Objective Data Objective Data Vital Signs: Vital Signs Temp Pulse Resp BP Pulse Ox O2 Del Method O2 Flow Rate 96.5 F L 81 31 H 105/48 L 100 Mechanical Ventilator 2 05/21/24 12:00 05/21/24 12:00 05/21/24 12:00 05/21/24 12:30 05/21/24 12:00 05/21/24 12:00 05/21/24 07:00 FiO2 90 05/21/24 12:00 Oxygen Flow Rate (L/min) 2 Oxygen Delivery Method Mechanical Ventilator Weight: 71.9 kg Body Mass Index (BMI) 25.4 Intake & Output: Intake and Output for Last 24 Hours 05/19/24 05/20/24 05/21/24 23:59 23:59 23:59 Intake Total 3307.97 / 3317.37 1221.17 / 1221.17 648.26 / 648.26 Output Total 345 / 345 Balance 2962.97 / 2972.37 1220.17 / 1220.17 648.26 / 648.26 Lab / Micro Data 05/21/24 14:10 05/21/24 12:03 Labs: Laboratory Results - last 24 hr 05/20/24 15:46: Sodium 138, Potassium 5.1, Chloride 106, Carbon Dioxide 21.0, B UN 33 H, Creatinine 1.65 H, Estim Creat Clear Calc 29.54, Est GFR (MDRD) Af Amer 51 L, Est GFR (MDRD) Non-Af 42 L, BUN/Creatinine Ratio 20.0, Glucose 175 H, C alcium 8.3 L, Phosphorus 3.2, Albumin 2.5 L 05/20/24 17:52: POC Glucose 169 H 05/21/24 00:05: Sodium 139, Potassium 5.3 H, Chloride 106, Carbon Dioxide 21.0, BUN 27 H, Creatinine 1.45 H, Estim Creat Clear Calc 33.61, Est GFR (MDRD) Af Amer 59 L, Est GFR (MDRD) Non-Af 49 L, BUN/Creatinine Ratio 18.6, Glucose 173 H, Calcium 8.7, Phosphorus 4.0, Albumin 2.5 L 05/21/24 00:17: POC Glucose 141 H 05/21/24 06:15: WBC 29.3 H, RBC 2.75 L, Hgb 7.8 L, Hct 24.9 L, MCV 90.5, MCH 28.4, MCHC 31.3 L, RDW Std Deviation 62.9 H, RDW Coeff of Chucky 19.6 H, Plt Count 101 L, MPV 11.1, Immature Gran % (Auto) 1.100 H, Neut % (Auto) 92.8 H, Lymph % (Auto) 2.3 L, [place] % (Auto) 3.7, Eos % (Auto) 0.0, Baso % (Auto) 0.1, Absolute Neuts (auto) 27.2 H, Absolute Lymphs (auto) 0.66 L, Nucleated RBC % 0.2, Differential Comment SCANNED, Toxic Vacuolation 1+, Sodium 137, Potassium 5.4 H, Chloride 105, Carbon Dioxide 20.0 L, BUN 23 H, Creatinine 1.18, Estim Creat Clear Calc 41.30, Est GFR (MDRD) Af Amer 75, Est GFR (MDRD) Non-Af 62, BUN/Creatinine Ratio 19.5, Glucose 143 H, Calcium 8.7, Phosphorus 3.5, Total Creatine Kinase 2779 H, Albumin 2.5 L, Triglycerides 125 05/21/24 06:20: POC Glucose 134 H 05/21/24 11:23: POC Glucose 96 05/21/24 12:03: Sodium 137, Potassium 5.8 H, Chloride 103, Carbon Dioxide 17.0 L , Anion Gap 18 H, BUN 32 H, Creatinine 1.53 H, Estim Creat Clear Calc 31.85, Est GFR (MDRD) Af Amer 56 L, Est GFR (MDRD) Non-Af 46 L, BUN/Creatinine Ratio 20.9 H , Glucose 196 H, Calcium 8.3 L 05/21/24 14:10: Hgb 9.5 L, Hct 30.2 L Micro: Microbiology 05/21/24 07:56 Sputum, Induced/Lukens Gram Stain - Final 05/19/24 07:42 Blood Culture (Wb) - Right Hand Blood Culture - Preliminary No growth in 48 hours. 05/19/24 10:57 Urine Catheter - Catheter Urine Culture - Final Klebsiella oxytoca 05/20/24 09:45 Nasal Secretion MRSA (PCR) - Final ABG Data ABG results: ABG 05/21/24 05/21/24 07:23 09:14 Specimen Type ART ART Sample Site R Fem R Brach pH 7.11 L* 7.27 L Bicarbonate Actual 25.7 20.4 L Total CO2 28 22 Base Excess -4 L -7 L O2 Saturation 88 L 48 L O2 % 100.0 100.0 ABG pCO2 80.7 H* 44.5 ABG pO2 75 30 L* Chalo Test Positive Positive Respiration Rate 16 O2 Delivery Device Bagging Adult Vent Vent Mode Not entered AC Tidal Volume 450.0 POC PEEP 5 8 Crit Call To/Read Back Yes Yes Blood Gas Notified Whom rekha da silva Blood Gas Notified Time 07:25:28 09:15:48 Radiography Diagnostic Testing: Radiology Impression Chest X-Ray 05/21/24 07:26 IMPRESSION: Satisfactory position of the support lines and tubes. No acute thoracic pathology. Electronically Signed: Adrian Perry MD at 9:00 EDT , Physical Exam Narrative S1, S2, RRR Lungs clear Abdomen soft, rounded No edema Indwelling [place] with scant yellow urine in Assessment & Plan Assessment/Plan (1) Hemorrhagic shock: (2) Retroperitoneal hemorrhage: (3) DORIS (acute kidney injury): (4) Hyperkalemia: (5) CKD (chronic kidney disease) stage 4, GFR 15-29 ml/min: PLAN: Plan This is an 84-year-old male with past medical history significant for significant peripheral artery disease, hypertension, CKD stage IV, history of nonhealing wounds of bilateral lower extremities with arterial insufficiency who underwent aortogram with bilateral lower extremity runoff yesterday per Dr. Goldberg, after procedure patient became significantly hypotensive without response to IV fluids, CT of abdomen and pelvis demonstrated retroperitoneal hemorrhage, hemoglobin dropped, patient admitted to ICU, received multiple units PRBC. Nephrology consulted in view of history of CKD stage IV now with DORIS and hyperkalemia, metabolic acidosis. baseline cr around 2.5 or so Earlier this morning he had a CODE BLUE called. PEA arrest. Has a pacemaker. Resuscitated after 5 to 7 minutes. Currently on 50 mcg of Levophed. Repeat potassium this afternoon is increasing again. Resume CRRT. Addendum. As soon as CRRT was resumed, pressor requirements have increased. Indicates preload dependency. Will give a liter fluid bolus. Will try to run CRRT for about 4 hours or so to clear the potassium. If he is still hemodynamically unstable, will stop CRRT. Discussed with hospitalist
--- NOTE | 2024-05-21 16:07 | PN.HOSP_ITS ---
Reason for Visit Reason for Visit: Diagnoses Hyperkalemia (05/18/24) Other specified peripheral vascular diseases (05/18/24) Pneumonitis due to inhalation of food and vomit (05/18/24) Non-pressure chronic ulcer of left ankle with fat layer exposed (05/18/24) Acute kidney failure, unspecified (05/18/24) Chronic kidney disease, stage 4 (severe) (05/18/24) Other shock (05/18/24) Hemorrhage, not elsewhere classified (05/18/24) Subjective Subjective Patient was seen and examined today, patient had a cardiac arrest this morning- he went into PEA and ACLS protocol was followed and patient stabilized. Nursing states they talked with family members, wants all measures currently for the patient. I talked briefly with nephrology about continuous dialysis, that affected the patient's blood pressure this afternoon so nephrology has elected to stop it and give the patient fluids. Patient remains on antibiotics currently. Objective Data Objective Data Vital Signs: Vital Signs Temp Pulse Resp BP Pulse Ox O2 Del Method O2 Flow Rate 96.5 F L 72 30 H 103/52 L 99 Mechanical Ventilator 2 05/21/24 12:00 05/21/24 15:30 05/21/24 15:30 05/21/24 15:45 05/21/24 14:00 05/21/24 15:51 05/21/24 07:00 FiO2 90 05/21/24 12:00 Oxygen Flow Rate (L/min) 2 Oxygen Delivery Method Mechanical Ventilator Weight: 71.9 kg Body Mass Index (BMI) 25.4 Intake & Output: Intake and Output for Last 24 Hours 05/19/24 05/20/24 05/21/24 23:59 23:59 23:59 Intake Total 3307.97 / 3317.37 1221.17 / 1221.17 1231.95 / 1231.95 Output Total 345 / 345 Balance 2962.97 / 2972.37 1220.17 / 1220.17 1231.95 / 1231.95 Lab / Micro Data 05/21/24 14:10 05/21/24 12:03 Labs: Laboratory Results - last 24 hr 05/20/24 15:46: Sodium 138, Potassium 5.1, Chloride 106, Carbon Dioxide 21.0, B UN 33 H, Creatinine 1.65 H, Estim Creat Clear Calc 29.54, Est GFR (MDRD) Af Amer 51 L, Est GFR (MDRD) Non-Af 42 L, BUN/Creatinine Ratio 20.0, Glucose 175 H, C alcium 8.3 L, Phosphorus 3.2, Albumin 2.5 L 05/20/24 17:52: POC Glucose 169 H 05/21/24 00:05: Sodium 139, Potassium 5.3 H, Chloride 106, Carbon Dioxide 21.0, BUN 27 H, Creatinine 1.45 H, Estim Creat Clear Calc 33.61, Est GFR (MDRD) Af Amer 59 L, Est GFR (MDRD) Non-Af 49 L, BUN/Creatinine Ratio 18.6, Glucose 173 H, Calcium 8.7, Phosphorus 4.0, Albumin 2.5 L 05/21/24 00:17: POC Glucose 141 H 05/21/24 06:15: WBC 29.3 H, RBC 2.75 L, Hgb 7.8 L, Hct 24.9 L, MCV 90.5, MCH 28.4, MCHC 31.3 L, RDW Std Deviation 62.9 H, RDW Coeff of Chucky 19.6 H, Plt Count 101 L, MPV 11.1, Immature Gran % (Auto) 1.100 H, Neut % (Auto) 92.8 H, Lymph % (Auto) 2.3 L, Sutter % (Auto) 3.7, Eos % (Auto) 0.0, Baso % (Auto) 0.1, Absolute Neuts (auto) 27.2 H, Absolute Lymphs (auto) 0.66 L, Nucleated RBC % 0.2, Differential Comment SCANNED, Toxic Vacuolation 1+, Sodium 137, Potassium 5.4 H, Chloride 105, Carbon Dioxide 20.0 L, BUN 23 H, Creatinine 1.18, Estim Creat Clear Calc 41.30, Est GFR (MDRD) Af Amer 75, Est GFR (MDRD) Non-Af 62, BUN/Creatinine Ratio 19.5, Glucose 143 H, Calcium 8.7, Phosphorus 3.5, Total Creatine Kinase 2779 H, Albumin 2.5 L, Triglycerides 125 05/21/24 06:20: POC Glucose 134 H 05/21/24 11:23: POC Glucose 96 05/21/24 12:03: Sodium 137, Potassium 5.8 H, Chloride 103, Carbon Dioxide 17.0 L , Anion Gap 18 H, BUN 32 H, Creatinine 1.53 H, Estim Creat Clear Calc 31.85, Est GFR (MDRD) Af Amer 56 L, Est GFR (MDRD) Non-Af 46 L, BUN/Creatinine Ratio 20.9 H , Glucose 196 H, Calcium 8.3 L 05/21/24 14:10: Hgb 9.5 L, Hct 30.2 L Micro: Microbiology 05/21/24 07:56 Sputum, Induced/Lukens Gram Stain - Final 05/19/24 07:42 Blood Culture (Wb) - Right Hand Blood Culture - Preliminary No growth in 48 hours. 05/19/24 10:57 Urine Catheter - Catheter Urine Culture - Final Klebsiella oxytoca 05/20/24 09:45 Nasal Secretion MRSA (PCR) - Final ABG Data ABG results: ABG 05/21/24 05/21/24 07:23 09:14 Specimen Type ART ART Sample Site R Fem R Brach pH 7.11 L* 7.27 L Bicarbonate Actual 25.7 20.4 L Total CO2 28 22 Base Excess -4 L -7 L O2 Saturation 88 L 48 L O2 % 100.0 100.0 ABG pCO2 80.7 H* 44.5 ABG pO2 75 30 L* Chalo Test Positive Positive Respiration Rate 16 O2 Delivery Device Bagging Adult Vent Vent Mode Not entered AC Tidal Volume 450.0 POC PEEP 5 8 Crit Call To/Read Back Yes Yes Blood Gas Notified Whom rekha da silva Blood Gas Notified Time 07:25:28 09:15:48 Radiography Diagnostic Testing: Radiology Impression Chest X-Ray 05/21/24 07:26 IMPRESSION: Satisfactory position of the support lines and tubes. No acute thoracic pathology. Electronically Signed: Adrian Perry MD at 9:00 EDT , Physical Exam Narrative Patient is sedated and on ventilator Const Constitutional Narrative: Sedated and on the ventilator HEENT Head and Scalp: normocephalic Eyes PERRL and conjunctivae normal Neck no JVD Resp Resp Narrative: Patient on the ventilator Cardio regular rate and regular rhythm Cardio Narrative: Patient is in paced rhythm GI non-distended Skin Skin Narrative: Patient has areas of skin breakdown/eschars on his feet bilaterally Neuro Neuro Narrative: Patient is sedated on the ventilator Psych Psych Narrative: Patient is sedated and on the ventilator Assessment & Plan Assessment/Plan (1) DORIS (acute kidney injury): PLAN: Plan 1. Hemorrhagic shock secondary to acute blood loss anemia secondary to acute retroperitoneal hemorrhage following an aortogram-patient's hemoglobin appears to be stable at this time, patient remains on pressors at this time and labs will be monitored #2 status post cardiac arrest with PEA-etiology unclear at this point, patient appears stable on the ventilator at this time, teleintensive care is participating in his care #3 acute kidney injury on a backdrop of stage IV chronic kidney disease- nephrology is elected to give the patient fluids today, continuous dialysis was stopped today for a brief period of time due to concerns of low blood pressure, nephrology will try to run continuous dialysis for at least 4 hours today to clear the patient's high potassium #4 hyperkalemia-again an attempt will be made to run continuous dialysis today for 4 hours #5 acute blood loss anemia secondary to #1 requiring blood transfusion-Labs will be monitored #6 peripheral vascular disease-complicates care, management, recovery, and prognosis #7 metabolic acidosis secondary to acute kidney injury-nephrology is participating in his care Total clinical time spent by myself addressing the patient's medical issues, reviewing all of his data, and collaborating with patient's care team: 50 minutes Charges/Coding Visit Charges Inpatient E&M: [address] [place] [address]
[2024-05-21] MEDS: Vasopressin 20 UNITS in 0.9% Normal Saline (50mL Bag) 24 ML 3 UNITS CONT INF ×2 (16:41→21:20)
[2024-05-21] MEDS: Dextrose 10%-Water 250 ML 999 ML IV (17:20)
[2024-05-21 17:28] LABS: Bedside Glucose 55 mg/dL (74-106)
[2024-05-21 17:57] LABS: Bedside Glucose 81 mg/dL (74-106)
[2024-05-21 18:54] LABS: BUN 24 mg/dL (7-18); BUN/Creat Ratio 18.9 RATIO (10-20); Calcium,Total 7.7 mg/dL (8.5-10.1); Chloride 108 mmol/L (98-107); Creatinine, Serum 1.27 mg/dL (0.70-1.30); EST Glomerular Filtration Rate 57 mL/min (>60); Est Glom Filt Rate - Afr Amer 69 mL/min (>60); Estimated Creatinine Clearance 38.37 ml/min; Glucose 85 mg/dL (74-106); Phosphorus 3.9 mg/dL (2.5-4.9); Sodium Level 140 mmol/L (136-145)
[2024-05-21] MEDS: Norepinephrine 8 MG in 0.9% Normal Saline (250mL Bag) 242 ML 56.3 MG CONT INF (18:59)
[2024-05-21] MEDS: 0.9% Normal Saline (250mL Bag) 250 ML 15 ML IV (21:14)
[2024-05-21] MEDS: Chlorhexidine 15 ML PO (21:14)
--- NOTE | 2024-05-21 23:20 | NURSING ---
this RN contacting Tele PCC doctor at 2144 to notify of low BP and obtain orders. Pt maxed on levophed and vasopressin running. Dr. Romo orderd marta, CBC, BMP, ABG, and 25g Albumin. HR at 2200 63. This RN drawing labs at 2205 and noticed HR in decreasing, no pulse felt. Pavel pollard called, CPR started at 2206. See pavel pollard documentation.
--- NOTE | 2024-05-22 02:09 | NURSING ---
pt d/c to home. , Miriam, left with belongings. wedding band still on pt and sent to home.
--- NOTE | 2024-05-22 16:20 | DS.PCM_ITS ---
Providers Date of Admission: 05/18/24 Date of Discharge: 05/21/24 Primary Care Physician: Dr. Wale Vasquez MD Consultations 05/19/24 05:00 Consult: Hospitalist Routine Consulting Provider: Adrian Yeboah Reason for Consult: medical management EMERGENT Consult: Yes Notified: Yes Date Notified: 05/19/24 Time Notified: 04:40 Method of Notification: Verbal 05/19/24 07:16 Consult: Residential Building Inspector / Pulmonary Medicine Routine Consulting Provider: Intensivists/Pulmonary Med Reason for Consult: icu EMERGENT Consult: No Notified: Yes Date Notified: 05/19/24 Time Notified: 07:20 Method of Notification: Verbal 05/19/24 07:26 Consult: Nephrology Routine Consulting Provider: Alexi Mathew Reason for Consult: DORIS on CKD, Hyperkalemia EMERGENT Consult: No Notified: No Date Notified: 05/19/24 Time Notified: 07:26 05/19/24 11:55 Consult: Nephrology Routine Consulting Provider: Alexi Mathew Reason for Consult: DORIS on CKD, Hyperkalemia EMERGENT Consult: No Notified: Yes Date Notified: 05/19/24 Time Notified: 08:20 Method of Notification: Answering Service Reason For Visit: L ANKLE ULCER Diagnosis Discharge Diagnosis (1) DORIS (acute kidney injury): Status: Acute Code(s): N17.9 - Acute kidney failure, unspecified Plan 1. Hemorrhagic shock secondary to acute blood loss anemia secondary to acute retroperitoneal hemorrhage following an aortogram-patient's hemoglobin appears to be stable at this time, patient remains on pressors at this time and labs will be monitored #2 status post cardiac arrest with PEA-etiology unclear at this point, patient appears stable on the ventilator at this time, teleintensive care is participating in his care #3 acute kidney injury on a backdrop of stage IV chronic kidney disease- nephrology is elected to give the patient fluids today, continuous dialysis was stopped today for a brief period of time due to concerns of low blood pressure, nephrology will try to run continuous dialysis for at least 4 hours today to clear the patient's high potassium #4 hyperkalemia-again an attempt will be made to run continuous dialysis today for 4 hours #5 acute blood loss anemia secondary to #1 requiring blood transfusion-Labs will be monitored #6 peripheral vascular disease-complicates care, management, recovery, and prognosis #7 metabolic acidosis secondary to acute kidney injury-nephrology is participating in his care #8 cardiogenic shock secondary to cardiac arrest with PEA #9 atherosclerotic heart disease #10 respiratory arrest secondary to PEA Total clinical time spent by myself addressing the patient's medical issues, reviewing all of his data, and collaborating with patient's care team: 50 minutes Medications at Discharge Home Medications clopidogrel 75 mg tablet 75 mg PO DAILY 04/03/15 latanoprost 0.005 % eye drops 1 drp QHS 04/03/15 metoprolol succinate 25 mg tablet,extended release 24 hr 50 mg PO DAILY . 04/03/15 simvastatin 40 mg tablet 40 mg PO QHS 04/03/15 sucralfate 1 gram tablet 2 g PO BID . 04/03/15 tamsulosin 0.4 mg capsule 0.8 mg PO BID . 04/03/15 apremilast 30 mg tablet (Otezla) 30 mg PO DAILY 02/05/16 ferrous sulfate 325 mg (65 mg iron) tablet (FeroSul) 325 mg PO DAILY 03/08/24 glipizide 2.5 mg tablet, extended release 24 hr 2.5 mg PO BID 03/08/24 sodium polystyrene sulfonate 15 gram-sorbitol 20 gram/60 mL oral susp (SPS (with sorbitol)) 60 ml PO .3x week . 03/08/24 timolol maleate 0.5 % eye drops 1 drp ophthalmic (eye) BID . 03/08/24 cetirizine 10 mg tablet (Zyrtec) 10 mg PO QDAY PRN . 05/05/24 cobalamine combinations capsule cap PO 05/05/24 duloxetine 20 mg capsule,delayed release (Cymbalta) 30 mg PO DAILY . 05/05/24 gabapentin 100 mg capsule 400 mg PO TID 05/05/24 insulin glargine 100 unit/mL subcutaneous cartridge 18 unit subcut QPM . 05/05/24 insulin lispro 100 unit/mL subcutaneous pen 1 sliding scale dose subcut USEASDIRECTD . 05/05/24 brimonidine tartrate 1 drp RIGHT EYE BID . 05/18/24 calcium 600 mg capsule 600 mg PO DAILY . 05/18/24 cyanocobalamin (vitamin B-12) 500 mcg tablet (Vitamin B-12) 500 mcg PO DAILY . 05/18/24 montelukast 10 mg tablet (Singulair) 10 mg PO DAILY . 05/18/24 Hospital Course Operations None Procedures Central line placement and Intubation Summary of Care Provided Minutes Spent on Discharge: 31 Hospital Course: This 84-year-old white male was admitted to ICU at [facility] after undergoing an outpatient lower extremity angiogram due to nonhealing bilateral lower extremity wounds in the setting of significant PAD and renal insufficiency. Patient seemed to tolerate the procedure well and it seemed to be without complication, however, after the procedure when the patient was in recovery suddenly became significantly hypotensive and was unresponsive to fluid administration or atropine requiring the initiation of Levophed. Bedside ultrasound did not show any hematoma or extravasation near the femoral access site, he was returned to the Nurse Ldr to further examine for any access related hemorrhage, no extravasation was noted and at that point the patient had hemodynamically stabilized and his mental status had improved. An echocardiogram was obtained which showed an EF of 60 to 65%, he was taken to CT scanning where an abdominal and pelvic CT revealed a retroperitoneal bleed without evidence of focal hematoma or active bleeding. Patient was then admitted under Dr. Goldberg's service and ICU and he received 3 units of packed red blood cells, he was seen in consultation by critical care and ultimately by the hospitalist service who assumed management of the patient in Dr. Goldberg's absence. On 05/19/2024, a rapid response was called at approximately 5 AM after the patient vomited and aspirated and was transiently lethargic for approximately 10 seconds before regaining full consciousness. Patient was noted to be dyspneic with rhonchi, he was started on IV Azactam and IV Flagyl. Patient's creatinine elevated and he was seen in consultation by nephrology who felt he had likely DORIS secondary to ATN from hemorrhagic shock and hypotension. Patient's bicarb dropped and he had rising potassium up to 7.1. Conversations were carried out with the patient's who desired full measures, patient was set up for continuous replacement renal therapy. Patient's antibiotics were changed to meropenem. Early on the morning of 05/21/2024, a CODE DILMA was called at approximately 7:05 AM in the ICU, patient was noted to be pulseless with a paced rhythm, he is felt to have PEA and ACLS protocol was instituted, he was given several doses of epinephrine and bicarb and was intubated, he had successful ROSC, he did not tolerate continuous dialysis however was hypotensive and this was stopped. Patient was placed on increasing amounts of Levophed and finally vasopressin was added but the patient's blood pressure continued to decline. Discussions were carried out with the patient's who wanted full measures. At 2206 hrs. on 05/21/2024, patient had a bradycardic episode and went into pulseless electrical activity, ACLS protocol was instituted and the patient was given epinephrine and CPR was continued. These attempts were unsuccessful however and the patient at 2214 on 05/21/2024. Cause of was felt to be cardiogenic shock secondary to atherosclerotic heart disease and PEA. Weight / BMI Weight Weight: 71.9 kg Body Mass Index (BMI) 25.4 ABG / Lab / Microbiology Data 05/21/24 14:10 05/21/24 18:30 Laboratory: Laboratory Results - last 24 hr 05/21/24 17:11: POC Glucose 55 L 05/21/24 17:40: POC Glucose 81 05/21/24 18:30: Sodium 140, Potassium 5.0, Chloride 108 H, Carbon Dioxide 16.0 L , BUN 24 H, Creatinine 1.27, Estim Creat Clear Calc 38.37, Est GFR (MDRD) Af Amer 69, Est GFR (MDRD) Non-Af 57 L, BUN/Creatinine Ratio 18.9, Glucose 85, C alcium 7.7 L, Phosphorus 3.9, Albumin 2.0 L Microbiology: Microbiology 05/21/24 07:56 Sputum, Induced/Lukens Gram Stain - Final 05/21/24 07:56 Sputum, Induced/Lukens Respiratory Culture - Preliminary Gram negative maile 05/19/24 07:42 Blood Culture (Wb) - Right Hand Blood Culture - Preliminary No growth in 48 hours. 05/19/24 10:57 Urine Catheter - Catheter Urine Culture - Final Klebsiella oxytoca 05/20/24 09:45 Nasal Secretion MRSA (PCR) - Final Meaningful Use Info Meaningful Use Meaningful Use Diagnoses (Choose all that apply): None applicable Ischemic Stroke Statin Dosing Therapy Reference: STATIN DOSE THERAPY REFERENCE: * Patients > 75 years receive moderate or high dose statin therapy. * Patients 75 years or YOUNGER should receive HIGH intensity statin dose unless contraindicated. You will be required to document reason for non-treatment if statin daily dose does not meet guidelines. HIGH DOSE STATIN THERAPY DAILY Atorvastatin > than or = to 40 mg Rosuvastatin > than or = to 20 mg Amlodipine + Atorvastatin > than or = to 2.5/40 mg Ezetimibe + Simvastatin 10/80 mg Simvastatin 80mg Discharge Plan Admission Admit Date/Time: 05/18/24 16:27 Attending Provider: Stevie Garza Primary Care Provider: Wale Vasquez Consulting Providers: Sebastián Chao; Alexi Mathew; Enrrique Okeefe; Mehdi Li; Bob Walker; Adrian Kimball; Filippo Baldwin; Teja Graves; Arabella Montana; Chi Arana; Inder Porter; Minal Syed; Mauricio Santoro; Maninder Cruz; Artie Romo; Renard Kinney; Jefferson Maciel; Ji Campos; Kal Giles; Tiago Goldberg Disposition Disposition (needs filled in before D/C Order can be placed): Charges/Coding Visit Charges Inpatient E&M: 26151 Disch Hosp >30min
--- NOTE | 2024-05-22 16:34 | EXP.PCM_ITS ---
Preliminary Cause of Preliminary Cause of Preliminary Cause of : Cardiogenic shock with pulseless electrical activity secondary to atherosclerotic heart disease Date of Admission: 05/18/24 Date of : 05/21/24 Principle Diagnosis 1. Hemorrhagic shock secondary to acute blood loss anemia secondary to acute retroperitoneal hemorrhage following an aortogram-patient's hemoglobin appears to be stable at this time, patient remains on pressors at this time and labs will be monitored #2 status post cardiac arrest with PEA-etiology unclear at this point, patient appears stable on the ventilator at this time, teleintensive care is participating in his care #3 acute kidney injury on a backdrop of stage IV chronic kidney disease- nephrology is elected to give the patient fluids today, continuous dialysis was stopped today for a brief period of time due to concerns of low blood pressure, nephrology will try to run continuous dialysis for at least 4 hours today to clear the patient's high potassium #4 hyperkalemia-again an attempt will be made to run continuous dialysis today for 4 hours #5 acute blood loss anemia secondary to #1 requiring blood transfusion-Labs will be monitored #6 peripheral vascular disease-complicates care, management, recovery, and prognosis #7 metabolic acidosis secondary to acute kidney injury-nephrology is participating in his care #8 cardiogenic shock secondary to cardiac arrest with PEA #9 atherosclerotic heart disease #10 respiratory arrest secondary to PEA Problem List: Active and Suspected Problems (Updated 05/19/24 @ 11:38 by Diana Jerez NP-C) Hyperkalemia (Acute) DORIS (acute kidney injury) (Acute) Hemorrhagic shock (Acute) Aspiration pneumonitis due to regurgitated gastric secretions (Acute) Retroperitoneal hemorrhage (Acute) Other specified peripheral vascular diseases (Acute) Hospital Course This 84-year-old white male was admitted to the ICU following a lower extremity angiogram in the cardiovascular department due to low blood pressure and retroperitoneal bleed. Patient was transfused 3 units of blood in the ICU, he was seen by critical care and nephrology, patient's creatinine elevated due to acute kidney injury from ATN due to hypotension. Patient was placed on continuous replacement renal therapy, he had an episode of aspiration while in the ICU with suspected aspiration pneumonia and was placed on IV antibiotics. On 05/21/2024, a CODE BLUE was called at 7:05 AM in the ICU, patient went into PEA and ACLS protocol was instituted and the patient was intubated, after several minutes of resuscitation attempts, ROSC was achieved. Patient remained hypotensive however and needed to be placed on increasing doses of pressors that day, conversations were carried out with the patient's who desired all measures for the patient. At 2206 hours on 05/21/2024, patient again went into P EA and resuscitation attempts this time were not successful. Patient ultimately at 221.
[2024-05-23 12:56] LABS: Pathologist Review Reviewed
== END 2024-05-21 22:14 | DRG 356 ==
LOC: ICU 20:12
PROVIDERS: Family Medicine; Internal Medicine; Internal Medicine Critical Care Medicine; Internal Medicine Nephrology; Physician Assistant; Admitting Provider Surgery Trauma Surgery; PCP Pathology Anatomic Pathology & Clinical Pathology; Referring Provider Surgery Trauma Surgery; Visit Provider Internal Medicine
DX: K68.3 Retroperitoneal hematoma (principal); T81.19XA Other postprocedural shock, initial encounter; N17.0 Acute kidney failure with tubular necrosis; J69.0 Pneumonitis due to inhalation of food and vomit; G93.41 Metabolic encephalopathy; C91.41 Hairy cell leukemia, in remission; I70.92 Chronic total occlusion of artery of the extremities; N18.4 Chronic kidney disease, stage 4 (severe); L97.312 Non-pressure chronic ulcer of right ankle with fat layer exposed; L97.322 Non-pressure chronic ulcer of left ankle with fat layer exposed; D62 Acute posthemorrhagic anemia; I97.610 Postprocedural hemorrhage of a circulatory system organ or structure following a cardiac catheterization; N13.8 Other obstructive and reflux uropathy; E11.51 Type 2 diabetes mellitus with diabetic peripheral angiopathy without gangrene; I12.9 Hypertensive chronic kidney disease with stage 1 through stage 4 chronic kidney disease, or unspecified chronic kidney disease; F32.A Depression, unspecified; I46.9 Cardiac arrest, cause unspecified; I70.243 Atherosclerosis of native arteries of left leg with ulceration of ankle; E11.22 Type 2 diabetes mellitus with diabetic chronic kidney disease; E11.621 Type 2 diabetes mellitus with foot ulcer; Z79.4 Long term (current) use of insulin; E87.5 Hyperkalemia; I25.10 Atherosclerotic heart disease of native coronary artery without angina pectoris; I95.81 Postprocedural hypotension; L97.522 Non-pressure chronic ulcer of other part of left foot with fat layer exposed; X58.XXXA Exposure to other specified factors, initial encounter; N40.1 Benign prostatic hyperplasia with lower urinary tract symptoms; Z66 Do not resuscitate; Z95.0 Presence of cardiac pacemaker; Z79.02 Long term (current) use of antithrombotics/antiplatelets; Z79.84 Long term (current) use of oral hypoglycemic drugs; Z79.899 Other long term (current) drug therapy; Z23 Encounter for immunization
CPT/HCPCS: 31500; 31720; 36200; 36245; 36246; 36415; 36600; 37224; 37252; 37253; 51702; 70450; 71045; 71250; 74176; 75625; 75716; 76937; 80048; 80053; 80069; 81001; 82550; 82803; 82962; 83605; 83735; 84100; 84145; 84478; 84484; 85014; 85018; 85025; 85347; 86850; 86870; 86900; 86901; 86902; 86905; 86920; 86922; 87040; 87070; 87077; 87086; 87088; 87186; 87205; 87641; 90662; 90947; 92950; 93005; 93308; 94002; 94762; 99152; 99153; 99214; C1725; C1753; C1760; C1769; C1887; C1894; C2623; J2185; J7040; J7050; P9016; Q9967; A4216; C1751; G0463; J0612; J2405; J3490